=== PATIENT | male | born 1975 | race Caucasian/White ===

== ENCOUNTER 2016-10-16 07:34 | Observation (INO) | payer BC ==
[2016-10-16] MEDS ORDERED: Sodium Chloride 0.9% 1000 ML 1,000 ML IV STA (07:55)
[2016-10-16] MEDS ORDERED: NITRO-BID 2% UD PACKETS TOP ONE (07:55)
[2016-10-16] MEDS ORDERED: BABY ASPIRIN 81 MG CHEW PO ONE (07:55)
[2016-10-16] MEDS ORDERED: NITRO-BID 2% UD PACKETS ONE (08:00)
[2016-10-16] MEDS ORDERED: BABY ASPIRIN 81 MG CHEW ONE (08:00)
[2016-10-16] MEDS ORDERED: Sodium Chloride 0.9% 1000 ML 1,000 ML ONE (08:00)
[2016-10-16 08:06] LABS: Lactic Acid 3.5 (0.4-2.0)
[2016-10-16 08:08] LABS: VBG BASE EXCESS 0.2 (-2.0-2.0); VBG CARBOXYHEMOGLOBIN 4.2 % T HGB (0.0-6.9); VBG HCO3- 26.5 meq/L (22-28); VBG HEMOGLOBIN 15.3; VBG O2 SATURATION 85.3 (95-100); VBG POTASSIUM 4.3 (3.5-5.1); VBG pH 7.35 (7.32-7.42)
[2016-10-16 08:10] LABS: BASOPHIL % 0.5 % (0.0-0.4); Eosinophil % 2.6 % (0.00-5.0); Granulocytes % 67.3 % (36.0-66.0); Lymphocytes % 22.8 % (24.0-44.0); Mean Cell Volume 92.8 fl (78-100); Mean Corpuscular Hemoglobin 31.7 pg (26-32); Mean Platelet Volume 9.7 fl (6-9.5); Monocytes % 6.8 % (0.0-12.0); Platelet Count 225 K/mm3 (150-450); Red Blood Count 4.73 M/mm3 (4.1-5.6); Red Cell Distribution Width 13.1 % (11.5-14.0); White Blood Count 7.6 K/mm3 (4.0-10.5)
--- NOTE | 2016-10-16 08:11 | ERPHSYRPT ---
- History of Present Illness Time Seen by Provider: 10/16/16 07:44 Source: patient Patient Subjective Stated Complaint: PT STATES APPROX 0330 HE GOT UP TO CHECK HIS BLOOD SUGAR AND HAD PRESSURE TO THE LEFT UPPER CHEST. STATES HE COULD NOT GO BACK TO SLEEP DUE TO THE DISCOMFORT. Triage Nursing Assessment: PT IS AOX3, AMBULATORY TO COT WITH NO DIFFICULTIES, RESPS ARE EASY AND NONLABORED, RADIAL PULSE ARE STRONG AND EQUAL, HEART SOUNDS ARE NORMAL, NO EDEMA NOTED. SKIN IS PWD. Physician History: CC: chest pain Hx: 41 y/o patient of Dr Frias. He was driving to work this AM and noted left upper chest pain to the shoulder, pressure associated with shortness of breath. Started around 6AM today. He noted glc high 522 so took 15 units humalog SS. No hx of heart disease. He has DM and HTN. Fam hx of aortic dissection in father. ILL: DM, HTN, Anxiety, Depression ALL: Eggs Timing/Duration: today Severity: moderate Allergies/Adverse Reactions: egg Allergy (Verified 10/16/16 07:44) Home Medications: Lisinopril 20 mg [Zestril 20 MG] 30 mg PO HS 07/14/13 [History] Metformin HCl 850 mg [Glucophage 850 MG] 300 mg PO TID 03/21/14 [History] Venlafaxine HCl ER 75 mg [Effexor XR 75 MG] 150 mg PO HS 03/21/14 [History ] Amitriptyline HCl 25 mg [Elavil 25 mg] 150 mg PO QHS 05/31/14 [History] Hx Tetanus, Diphtheria Vaccination/Date Given: Yes Hx Influenza Vaccination/Date Given: No Hx Pneumococcal Vaccination/Date Given: No Immunizations Up to Date: Yes - Review of Systems Constitutional: No Fever, No Chills Eyes: No Symptoms Ears, Nose, & Throat: No Symptoms Respiratory: Dyspnea, No Cough Cardiac: Chest Pain, No Edema, No Palpitations, No Syncope Abdominal/Gastrointestinal: No Abdominal Pain, No Nausea, No Vomiting Genitourinary Symptoms: No Symptoms Musculoskeletal: No Back Pain, No Injury Skin: No Rash Neurological: No Focal Weakness, No Gait Changes, No Parasthesia All Other Systems: Reviewed and Negative - Past Medical History Pertinent Past Medical History: Yes Neurological History: Peripheral Neuropathy, Stroke ENT History: No Pertinent History Cardiac History: Hypertension Respiratory History: No Pertinent History Endocrine Medical History: Diabetes Type II Musculoskeletal History: Other GI Medical History: GERD History: No Pertinent History Psycho-Social History: Anxiety, Depression Male Reproductive Disorders: Other Other Medical History: bad back, 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, impotence - Past Surgical History Past Surgical History: No - Social History Smoking Status: Never smoker Exposure to second hand smoke: No Drug Use: none Patient Lives Alone: No - Nursing Vital Signs Nursing Vital Signs: Initial Vital Signs Temperature 98.3 F Temperature Source Oral Pulse Rate [Bilateral Radial] 122 Pulse Rate 102 Respiratory Rate 20 Blood Pressure [Right Arm] 116/76 Pain Intensity 2 - Physical Exam General Appearance: alert Eye Exam: PERRL/EOMI Ears, Nose, Throat Exam: normal ENT inspection, moist mucous membranes Neck Exam: normal inspection, non-tender, supple Respiratory Exam: normal breath sounds Cardiovascular Exam: regular rate/rhythm, murmur, No pulse deficit Gastrointestinal/Abdomen Exam: soft, No tenderness, No distention Back Exam: normal inspection Extremity Exam: normal inspection, normal range of motion Neurologic Exam: alert, oriented x 3, cooperative, precise winder II-XII nml as tested, sensation nml, No motor deficits Skin Exam: warm, dry, No rash SpO2 Interpretation: normal SpO2: 97 Oxygen Delivery: Room Air - Course Nursing assessment & vital signs reviewed: Yes EKG Interpreted by Me: RATE (118), Sinus Tach, NORMAL AXIS, NORMAL INTERVALS ( QTc 447), NORMAL QRS, NORMAL ST-T - Radiology Exams cxr X-ray Interpretation: Reviewed by me, Negative Ordered Tests: Active Orders 24 hr Category Date Time Status Cte Teacher STAT Care 10/16/16 07:55 Active Clean Catch Urine Specimen STAT Care 10/16/16 07:55 Active EKG-ER Only STAT Care 10/16/16 07:55 Active IV Insertion STAT Care 10/16/16 07:55 Active Pulse Oximetry (ED) STAT Care 10/16/16 07:55 Active CHEST 1 VIEW (PORTABLE) Stat Exams 10/16/16 07:55 Completed CBC W DIFF Stat Lab 10/16/16 08:04 Completed CMP Stat Lab 10/16/16 08:04 Completed Glucose,Critical Care Urgent Lab 10/16/16 07:56 Completed Lactic Acid Stat Lab 10/16/16 07:57 Results MAGNESIUM Stat Lab 10/16/16 08:11 Completed TROPONIN Q3H Lab 10/16/16 08:00 Completed TROPONIN Q3H Lab 10/16/16 11:00 Ordered TROPONIN Q3H Lab 10/16/16 14:00 Ordered TROPONIN Q3H Lab 10/16/16 17:00 Ordered TROPONIN Q3H Lab 10/16/16 20:00 Ordered UA W/RFX UR CULTURE Stat Lab 10/16/16 08:30 Completed Urine Triage Profile Stat Lab 10/16/16 07:55 Completed VENOUS BLOOD GAS Urgent Lab 10/16/16 07:56 Completed Medication Summary Discontinued Medications Generic Name Dose Route Start Last Admin Trade Name Freq PRN Reason Stop Dose Admin Aspirin 324 mg 10/16/16 07:55 10/16/16 08:04 Baby Aspirin 81 Mg Chew PO 10/16/16 07:56 324 mg STAT ONE Administration Aspirin Confirm 10/16/16 08:00 Baby Aspirin 81 Mg Chew Administered 10/16/16 08:01 Dose 324 mg .ROUTE .STK-MED ONE Sodium Chloride 1,000 mls @ 999 mls/hr 10/16/16 07:55 10/16/16 08:05 Sodium Chloride 0.9% 1000 Ml IV 10/16/16 08:55 999 mls/hr .Q1H1M STA Administration Sodium Chloride Confirm 10/16/16 08:00 Sodium Chloride 0.9% 1000 Ml Administered 10/16/16 08:01 Dose 1,000 mls @ ud .ROUTE .STK-MED ONE Insulin Human Isoph/Insulin Regular 50 unit 10/16/16 09:12 Novolin 70/30 SQ 10/16/16 09:13 STAT ONE Nitroglycerin 1 gm 10/16/16 07:55 10/16/16 08:05 Nitro-Bid 2% Ud Packets TOP 10/16/16 07:56 1 gm STAT ONE Administration Nitroglycerin Confirm 10/16/16 08:00 Nitro-Bid 2% Ud Packets Administered 10/16/16 08:01 Dose 1 gm .ROUTE .STK-MED ONE Lab/Rad Data: Laboratory Result Diagrams 10/16/16 08:04 10/16/16 08:04 Laboratory Results 10/16/16 10/16/16 10/16/16 Range/Units 08:30 08:11 08:04 WBC (4.0-10.5) K/mm3 RBC (4.1-5.6) M/mm3 Hgb (12.5-18.0) gm/dl Hct (42-50) % MCV (78-100) fl MCH (26-32) pg MCHC (32-36) g/dl RDW (11.5-14.0) % Plt Count (150-450) K/mm3 MPV (6-9.5) fl Gran % (36.0-66.0) % Lymphocytes % (24.0-44.0) % Monocytes % (0.0-12.0) % Eosinophils % (0.00-5.0) % Basophils % (0.0-0.4) % Basophils # (0-0.4) VBG pH (7.32-7.42) VBG pCO2 at Pat Temp (42-55) mm/Hg VBG pO2 at Pat Temp (25-40) mm/Hg VBG HCO3 (22-28) meq/L VBG O2 Sat (Steven) (95-100) VBG Base Excess (-2.0-2.0) VBG Hemoglobin VBG Carboxyhemoglobin (0.0-6.9) % T HGB POC Potassium (3.5-5.1) Glucose 480 H (70-110) Sodium 135 L (136-145) mEq/L Potassium 4.3 (3.5-5.1) mEq/L Chloride 99 (98-107) mEq/L Carbon Dioxide 25.3 (21-32) mEq/L Anion Gap 15.2 H (5-15) MEQ/L BUN 10 (9-20) mg/dL Creatinine 1.41 H (0.55-1.30) mg/dl Estimated GFR 59 ML/MIN Lactic Acid (0.4-2.0) Calcium 8.9 (8.5-10.1) mg/dL Magnesium 1.6 L (1.8-2.4) mg/dL Total Bilirubin 0.50 (0.2-1.0) mg/dL AST 16 (15-37) U/L ALT 31 (12-78) U/L Alkaline Phosphatase 104 (46-116) U/L Troponin I (0.000-0.056) ng/ml Serum Total Protein 7.3 (6.4-8.2) gm/dL Albumin 3.5 (3.4-5.0) g/dL Ur Collection Type VOID Urine Color YELLOW (YELLOW) Urine Appearance CLEAR (CLEAR) Urine pH 5.0 (5-6) Ur Specific Weinert 1.010 (1.005-1.025) Urine Protein NEGATIVE (Negative) Urine Ketones NEGATIVE (NEGATIVE) Urine Blood NEGATIVE (0-5) Edgar/ul Urine Nitrite NEGATIVE (NEGATIVE) Urine Bilirubin NEGATIVE (NEGATIVE) Urine Urobilinogen NORMAL (0-1) mg/dL Ur Leukocyte Esterase NEGATIVE (NEGATIVE) Urine Glucose 1000 (NEGATIVE) mg/dL Urine Opiates Level (NEGATIVE) Ur Methadone (NEGATIVE) Urine Barbiturates (NEGATIVE) Ur Phencyclidine (PCP) (NEGATIVE) Urine Amphetamine (NEGATIVE) U Benzodiazepine Level (NEGATIVE) Urine Cocaine (NEGATIVE) Urine Marijuana (THC) (NEGATIVE) Specimen Received 10/16/2016 0830 10/16/16 10/16/16 10/16/16 Range/Units 08:04 08:00 07:57 WBC 7.6 (4.0-10.5) K/mm3 RBC 4.73 (4.1-5.6) M/mm3 Hgb 15.0 (12.5-18.0) gm/dl Hct 43.9 (42-50) % MCV 92.8 (78-100) fl MCH 31.7 (26-32) pg MCHC 34.2 (32-36) g/dl RDW 13.1 (11.5-14.0) % Plt Count 225 (150-450) K/mm3 MPV 9.7 H (6-9.5) fl Gran % 67.3 H (36.0-66.0) % Lymphocytes % 22.8 L (24.0-44.0) % Monocytes % 6.8 (0.0-12.0) % Eosinophils % 2.6 (0.00-5.0) % Basophils % 0.5 (0.0-0.4) % Basophils # 0.04 (0-0.4) VBG pH (7.32-7.42) VBG pCO2 at Pat Temp (42-55) mm/Hg VBG pO2 at Pat Temp (25-40) mm/Hg VBG HCO3 (22-28) meq/L VBG O2 Sat (Steven) (95-100) VBG Base Excess (-2.0-2.0) VBG Hemoglobin VBG Carboxyhemoglobin (0.0-6.9) % T HGB POC Potassium (3.5-5.1) Glucose (70-110) Sodium (136-145) mEq/L Potassium (3.5-5.1) mEq/L Chloride (98-107) mEq/L Carbon Dioxide (21-32) mEq/L Anion Gap (5-15) MEQ/L BUN (9-20) mg/dL Creatinine (0.55-1.30) mg/dl Estimated GFR ML/MIN Lactic Acid 3.5 H (0.4-2.0) Calcium (8.5-10.1) mg/dL Magnesium (1.8-2.4) mg/dL Total Bilirubin (0.2-1.0) mg/dL AST (15-37) U/L ALT (12-78) U/L Alkaline Phosphatase (46-116) U/L Troponin I < 0.017 (0.000-0.056) ng/ml Serum Total Protein (6.4-8.2) gm/dL Albumin (3.4-5.0) g/dL Ur Collection Type Urine Color (YELLOW) Urine Appearance (CLEAR) Urine pH (5-6) Ur Specific Weinert (1.005-1.025) Urine Protein (Negative) Urine Ketones (NEGATIVE) Urine Blood (0-5) Edgar/ul Urine Nitrite (NEGATIVE) Urine Bilirubin (NEGATIVE) Urine Urobilinogen (0-1) mg/dL Ur Leukocyte Esterase (NEGATIVE) Urine Glucose (NEGATIVE) mg/dL Urine Opiates Level (NEGATIVE) Ur Methadone (NEGATIVE) Urine Barbiturates (NEGATIVE) Ur Phencyclidine (PCP) (NEGATIVE) Urine Amphetamine (NEGATIVE) U Benzodiazepine Level (NEGATIVE) Urine Cocaine (NEGATIVE) Urine Marijuana (THC) (NEGATIVE) Specimen Received 10/16/16 10/16/16 Range/Units 07:56 07:55 WBC (4.0-10.5) K/mm3 RBC (4.1-5.6) M/mm3 Hgb (12.5-18.0) gm/dl Hct (42-50) % MCV (78-100) fl MCH (26-32) pg MCHC (32-36) g/dl RDW (11.5-14.0) % Plt Count (150-450) K/mm3 MPV (6-9.5) fl Gran % (36.0-66.0) % Lymphocytes % (24.0-44.0) % Monocytes % (0.0-12.0) % Eosinophils % (0.00-5.0) % Basophils % (0.0-0.4) % Basophils # (0-0.4) VBG pH 7.35 (7.32-7.42) VBG pCO2 at Pat Temp 48 (42-55) mm/Hg VBG pO2 at Pat Temp 47 H (25-40) mm/Hg VBG HCO3 26.5 (22-28) meq/L VBG O2 Sat (Steven) 85.3 L (95-100) VBG Base Excess 0.2 (-2.0-2.0) VBG Hemoglobin 15.3 VBG Carboxyhemoglobin 4.2 (0.0-6.9) % T HGB POC Potassium 4.3 (3.5-5.1) Glucose 505 H* (70-110) Sodium (136-145) mEq/L Potassium (3.5-5.1) mEq/L Chloride (98-107) mEq/L Carbon Dioxide (21-32) mEq/L Anion Gap (5-15) MEQ/L BUN (9-20) mg/dL Creatinine (0.55-1.30) mg/dl Estimated GFR ML/MIN Lactic Acid (0.4-2.0) Calcium (8.5-10.1) mg/dL Magnesium (1.8-2.4) mg/dL Total Bilirubin (0.2-1.0) mg/dL AST (15-37) U/L ALT (12-78) U/L Alkaline Phosphatase (46-116) U/L Troponin I (0.000-0.056) ng/ml Serum Total Protein (6.4-8.2) gm/dL Albumin (3.4-5.0) g/dL Ur Collection Type Urine Color (YELLOW) Urine Appearance (CLEAR) Urine pH (5-6) Ur Specific Weinert (1.005-1.025) Urine Protein (Negative) Urine Ketones (NEGATIVE) Urine Blood (0-5) Edgar/ul Urine Nitrite (NEGATIVE) Urine Bilirubin (NEGATIVE) Urine Urobilinogen (0-1) mg/dL Ur Leukocyte Esterase (NEGATIVE) Urine Glucose (NEGATIVE) mg/dL Urine Opiates Level NEG. (NEGATIVE) Ur Methadone NEG. (NEGATIVE) Urine Barbiturates NEG. (NEGATIVE) Ur Phencyclidine (PCP) NEG. (NEGATIVE) Urine Amphetamine NEG. (NEGATIVE) U Benzodiazepine Level NEG. (NEGATIVE) Urine Cocaine NEG. (NEGATIVE) Urine Marijuana (THC) NEG. (NEGATIVE) Specimen Received - Progress Progress Note: 10/16/16 09:16 Pain almost gone with NTG paste. ASA given. Glc high. He usually takes humulin 70/30 50 units BID but has not taken yet today. Called Dr Frias and will place in obs for serial troponin and glucose management. Discussed with : Altagracia Will see patient in: hospital (observation) Counseled pt/family regarding: lab results, diagnosis, need for follow-up, rad results - Departure Time of Disposition: 09:18 Departure Disposition: Observation (Tele) Clinical Impression: Chest pain, rule out acute myocardial infarction, Hyperglycemia due to type 1 diabetes mellitus Condition: Fair Critical Care Time: No Referrals: ARY FRIAS [Primary Care Provider] -
--- NOTE | 2016-10-16 08:33 | XRAY ---
Indication: Left-sided chest pain. Comparison: May 31, 2014. Portable chest unchanged again underinflated with calcified granulomas. Remaining heart, lungs, and bony thorax normal.
[2016-10-16 08:35] LABS: ALBUMIN 3.5 g/dL (3.4-5.0); ANION GAP 15.2 MEQ/L (5-15); BILIRUBIN,TOTAL 0.5 mg/dL (0.2-1.0); Carbon Dioxide 25.3 mEq/L (21-32); Potassium 4.3 mEq/L (3.5-5.1); Total Protein 7.3 gm/dL (6.4-8.2)
[2016-10-16 08:53] LABS: ADD URINE CULTURE? NO (NO); Bilirubin NEGATIVE (NEGATIVE); Blood NEGATIVE Ery/ul (0-5); COMPLETE URINE MICROSCOPIC? NO; Collection Type VOID; Glucose 1000 mg/dL (NEGATIVE); Leukocyte Esterase NEGATIVE (NEGATIVE)
[2016-10-16] MEDS ORDERED: Novolin 70/30 SQ ONE (09:12)
[2016-10-16] MEDS ORDERED: Sodium Chloride 0.9% 500 ML 500 ML IV SCH (10:43)
[2016-10-16] MEDS ORDERED: Zofran 4 MG/2 ML VIAL IV PRN (10:43)
[2016-10-16] MEDS ORDERED: MAALOX ES 30 ML UNIT DOSE PO PRN (10:43)
[2016-10-16] MEDS ORDERED: MILK OF MAGNESIA 30 ML PO PRN (10:43)
[2016-10-16] MEDS ORDERED: Senokot-S Tablet PO PRN (10:43)
[2016-10-16] MEDS: Pepcid 20 MG PO SCH ×2 (11:34→22:06)
[2016-10-16] MEDS: NovoLOG Insulin SQ PRN ×2 (12:01→16:50)
[2016-10-16] MEDS: TYLENOL 325 MG PO PRN (13:53)
[2016-10-16] MEDS: NITRO-BID 2% UD PACKETS TOP SCH ×2 (13:54→22:09)
[2016-10-16] MEDS ORDERED: MEDICATION INTERVENTION MC PRN (14:44)
--- NOTE | 2016-10-16 17:29 | PCM.HP ---
History of Present Illness - Chief Complaint Chief Complaint: CHEST PAIN, HYPERGLYCENIA History of Present Illness: is a 41 year old male pt of mine from [facility], diabetic on insulin, who woke up at 3 am not feeling well. His BS was in the 400s so he took some fast acting insulin. He got up again at 6 am to go to work and his BS was over 500. He was having some chest pressure so decided to go to the ER. His troponins have been negative x 3. He denies CP now. Some ARANDA from the nitro. His HR has been elevated lately; was 126 at a recent. physical. - Review of Systems Constitutional: Weight Loss (purposeful) Cardiac: Chest Pain All Other Systems: Reviewed and Negative Medications & Allergies Home Medications: Home Medication List Lisinopril 20 mg [Zestril 20 MG] 30 mg PO HS 07/14/13 [History Confirmed 10/16/16] Metformin HCl 850 mg [Glucophage 850 MG] 850 mg PO TID 03/21/14 [History Confirmed 10/16/16] Venlafaxine HCl ER 75 mg [Effexor XR 75 MG] 150 mg PO HS 03/21/14 [ History Confirmed 10/16/16] Amitriptyline HCl 25 mg [Elavil 25 mg] 150 mg PO QHS 05/31/14 [History Confirmed 10/16/16] Insulin Lispro [Humalog] 100 unit SQ ACHS PRN 10/16/16 [History Confirmed ] Insuln Asp Prt/Insulin Aspart* [NovoLOG 70/30 Mix] 50 unit SQ BID 10/16/16 [ History Confirmed 10/16/16] Testosterone [Androgel] 1.25 gm TD DAILY 10/16/16 [History Confirmed 10/16/16] Allergies/Adverse Reactions: Allergies Allergy/AdvReac Type Severity Reaction Status Date / Time egg Allergy Verified 10/16/16 07:44 - Past Medical History Past Medical History: Yes Neurological History: Peripheral Neuropathy, Stroke ENT History: No Pertinent History Cardiac History: Hypertension Respiratory History: No Pertinent History Endocrine Medical History: Diabetes Type II Musculoskelatal History: Other GI Medical History: GERD History: No Pertinent History Pyscho-Social History: Anxiety, Depression Male Reproductive Disorders: Other Comment: bad back, CVA 2003.2004, impotence - Past Surgical History Past Surgical History: No Neuro Surgical History: No Pertinent History Cardiac History: No Pertinent History Respiratory Surgery: No Pertinent History GI Surgical History: No Pertinent History Genitourinary Surgical Hx: No Pertinent History Musculskeletal Surgical Hx: No Pertinent History Male Surgical History: No Pertinent History - Social History Smoking Status: Never smoker Exposure to second hand smoke: Yes Alcohol: None Drug Use: none - Physical Exam Vital Signs: Vital Signs - 24 hr Temp Pulse Pulse Resp BP Pulse Ox 10/16/16 16:19 98 F 95 H 20 118/74 98 10/16/16 13:38 20 114/66 10/16/16 12:05 98.3 F 99 H 16 104/60 93 L 10/16/16 10:43 96 10/16/16 10:17 98.5 F 99 H 20 117/74 96 10/16/16 10:08 104 H 18 127/74 95 10/16/16 09:23 114 H 20 118/72 95 10/16/16 09:19 97 10/16/16 08:39 102 H 20 116/76 98 10/16/16 08:10 108 H 18 142/87 96 10/16/16 07:57 97 10/16/16 07:35 122 H 10/16/16 07:34 98.3 F 122 H 20 137/72 97 General Appearance: no apparent distress, obese Neurologic Exam: alert, oriented x 3, cooperative Eye Exam: eyes nml inspection Neck Exam: normal inspection Respiratory Exam: normal breath sounds, lungs clear, No crackles/rales, No rhonchi, No wheezing Cardiovascular Exam: regular rate/rhythm, normal heart sounds, No murmur Back Exam: normal inspection Extremity Exam: normal inspection, No pedal edema, No swelling Skin Exam: normal color, warm, dry Results - Labs Lab/Micro Results: Accuchecks Date 10/16/16 Date 10/16/16 Time 16:00 Time 11:30 Accucheck Value: 175 Accucheck Value: 369 Lab Results-Last 24 Hours 10/16/16 10/16/16 Range/Units 11:00 13:51 Troponin I < 0.017 < 0.017 (0.000-0.056) ng/ml Accuchecks Date 10/16/16 Date 10/16/16 Time 16:00 Time 11:30 Accucheck Value: 175 Accucheck Value: 369 - Other Procedures and Tests Respiratory Therapy 10/17/16 05:00 EKG ONCE 10/18/16 05:00 EKG ONCE 10/19/16 05:00 EKG ONCE Assessment/Plan (1) Chest pain, rule out acute myocardial infarction Current Visit: Yes Status: Acute Assessment & Plan: Troponins negative x 3. Await 2 more troponins. No chest pain currently. Code(s): R07.9 - CHEST PAIN, UNSPECIFIED (2) Diabetes mellitus type I Current Visit: Yes Status: Acute Qualifiers: Diabetes mellitus complication status: with other specified complication Qualified Code(s): E10.69 - Type 1 diabetes mellitus with other specified complication Assessment & Plan: Resume home insulin with moderate dose sliding scale. (3) Elevated lactic acid level Current Visit: Yes Status: Acute Assessment & Plan: likely due to elevated blood sugar; recheck Code(s): R79.89 - OTHER SPECIFIED ABNORMAL FINDINGS OF BLOOD CHEMISTRY (4) Hyperglycemia due to type 1 diabetes mellitus Current Visit: Yes Status: Acute Assessment & Plan: Much improved, BS to 175 now. Code(s): E10.65 - TYPE 1 DIABETES MELLITUS WITH HYPERGLYCEMIA (5) Tachycardia Current Visit: Yes Status: Acute Assessment & Plan: Will add beta jimmie Code(s): R00.0 - TACHYCARDIA, UNSPECIFIED
[2016-10-16 18:27] LABS: ANION GAP 10.1 MEQ/L (5-15); BLOOD UREA NITROGEN 12 mg/dL (9-20); CHLORIDE 103 mEq/L (98-107); Carbon Dioxide 29.9 mEq/L (21-32); Glucose 160 MG/DL (70-110); SODIUM 139 mEq/L (136-145)
[2016-10-16 18:30] LABS: TROPONIN < 0.017 ng/ml (0.000-0.056)
[2016-10-16] MEDS: NovoLOG 70/30 Mix SQ SCH (19:19)
[2016-10-16] MEDS: Toprol-Xl 25MG Tablets PO SCH (19:19)
[2016-10-16] MEDS ORDERED: Zestril 20 MG PO SCH (22:00)
[2016-10-16] MEDS ORDERED: Effexor XR 75 MG PO SCH (22:00)
[2016-10-16] MEDS ORDERED: Zestril 10 MG PO SCH (22:00)
[2016-10-17] MEDS: TYLENOL 325 MG PO PRN (05:48)
[2016-10-17] MEDS: NITRO-BID 2% UD PACKETS TOP SCH (05:54)
[2016-10-17 06:17] LABS: ANION GAP 11.5 MEQ/L (5-15); BLOOD UREA NITROGEN 15 mg/dL (9-20); CHLORIDE 105 mEq/L (98-107); Carbon Dioxide 28.7 mEq/L (21-32); Glucose 155 MG/DL (70-110); Potassium 4.3 mEq/L (3.5-5.1); SODIUM 141 mEq/L (136-145)
[2016-10-17] MEDS: NovoLOG 70/30 Mix SQ SCH (07:48)
[2016-10-17] MEDS ORDERED: Ecotrin 325 MG PO SCH (10:00)
[2016-10-17] MEDS ORDERED: TESTOSTERONE 1.25 GM TD SCH (10:00)
[2016-10-17] MEDS: Toprol-Xl 25MG Tablets PO SCH (10:02)
[2016-10-17] MEDS: Pepcid 20 MG PO SCH (10:02)
--- NOTE | 2016-10-17 11:19 | PCM.DS ---
Discharge Summary Date of Admission: 10/16/16 10:10 Admitting Physician: ARY JADE Primary Care Provider: ARY JADE Allergies Allergies egg Allergy (Verified 10/16/16 07:44) Hospital Summary - Hospital Course Hospital Course: Pt admitted with chest pain to rule out MD; BS also over 500 (known diabetic). His blood sugars dropped into the 100s on his home insulin (with moderate dose sliding scale). His chest pain resolved after admission; troponins neg x 5. His HR was noted to be around and just over 100; at a recent physical it was 126 bpm. Toprol XL 25mg was started with good results, HR in the 80s and BP 110s - will send home on decreased dose of lisinopril (20mg/d instead of 30mg/d) . - Vitals & Intake/Output Vital Signs: Vital Signs Temperature 98.2 F 10/17/16 07:23 Pulse Rate 86 10/17/16 07:23 Respiratory Rate 18 10/17/16 07:23 Blood Pressure 112/65 10/17/16 07:23 O2 Sat by Pulse Oximetry 95 10/17/16 07:23 Intake & Output: Intake & Output 10/14/16 10/15/16 10/16/16 10/17/16 11:59 11:59 11:59 11:59 Intake Total 2196 Balance 2196 Weight 104.372 kg 104.372 kg - Lab Result Diagrams: 10/16/16 08:04 10/17/16 05:54 Lab Results-Last 24 Hrs: Accuchecks Date 10/17/16 Date 10/16/16 Date 10/16/16 Date 10/16/16 Date 10/16/16 Time 07:35 Time 21:00 Time 17:30 Time 16:00 Time 11:30 Accucheck Value: 155 Accucheck Value: 142 Accucheck Value: 175 Accucheck Value: 175 Accucheck Value: 369 Lab Results-Last 24 Hours 10/16/16 10/16/16 10/16/16 Range/Units 11:00 13:51 17:19 Sodium (136-145) mEq/L Potassium (3.5-5.1) mEq/L Chloride (98-107) mEq/L Carbon Dioxide (21-32) mEq/L Anion Gap (5-15) MEQ/L BUN (9-20) mg/dL Creatinine (0.55-1.30) mg/dl Estimated GFR ML/MIN Glucose (70-110) MG/DL Lactic Acid 1.7 (0.4-2.0) Calcium (8.5-10.1) mg/dL Troponin I < 0.017 < 0.017 (0.000-0.056) ng/ml Triglycerides (30-200) mg/dL Cholesterol (100-200) mg/dL LDL Cholesterol (5-99) mg/dL HDL Cholesterol (35-60) mg/dL Heart Disease Risk Ratio 10/16/16 10/16/16 10/17/16 Range/Units 17:59 20:18 05:54 Sodium 139 (136-145) mEq/L Potassium 4.0 (3.5-5.1) mEq/L Chloride 103 (98-107) mEq/L Carbon Dioxide 29.9 (21-32) mEq/L Anion Gap 10.1 (5-15) MEQ/L BUN 12 (9-20) mg/dL Creatinine 1.39 H (0.55-1.30) mg/dl Estimated GFR > 60 ML/MIN Glucose 160 H (70-110) MG/DL Lactic Acid (0.4-2.0) Calcium 8.8 (8.5-10.1) mg/dL Troponin I < 0.017 < 0.017 (0.000-0.056) ng/ml Triglycerides 131 (30-200) mg/dL Cholesterol 146 (100-200) mg/dL LDL Cholesterol 94 (5-99) mg/dL HDL Cholesterol 30 L (35-60) mg/dL Heart Disease Risk Ratio 4.9 10/17/16 Range/Units 05:54 Sodium 141 (136-145) mEq/L Potassium 4.3 (3.5-5.1) mEq/L Chloride 105 (98-107) mEq/L Carbon Dioxide 28.7 (21-32) mEq/L Anion Gap 11.5 (5-15) MEQ/L BUN 15 (9-20) mg/dL Creatinine 1.34 H (0.55-1.30) mg/dl Estimated GFR > 60 ML/MIN Glucose 155 H (70-110) MG/DL Lactic Acid (0.4-2.0) Calcium 8.9 (8.5-10.1) mg/dL Troponin I (0.000-0.056) ng/ml Triglycerides (30-200) mg/dL Cholesterol (100-200) mg/dL LDL Cholesterol (5-99) mg/dL HDL Cholesterol (35-60) mg/dL Heart Disease Risk Ratio Micro Results-Entire Visit: Accuchecks Date 10/17/16 Date 10/16/16 Date 10/16/16 Date 10/16/16 Date 10/16/16 Time 07:35 Time 21:00 Time 17:30 Time 16:00 Time 11:30 Accucheck Value: 155 Accucheck Value: 142 Accucheck Value: 175 Accucheck Value: 175 Accucheck Value: 369 - Procedures and Test Procedures and Tests throughout Hospitalization: Therapy Orders & Screens 10/16/16 15:30 EKG ONCE Comment: Diagnosis: CHEST PAIN, HYPERGLYCENIA 10/17/16 05:00 EKG ONCE Comment: Diagnosis: CHEST PAIN, HYPERGLYCENIA 10/18/16 05:00 EKG ONCE Comment: Diagnosis: CHEST PAIN, HYPERGLYCENIA 10/19/16 05:00 EKG ONCE Comment: Diagnosis: CHEST PAIN, HYPERGLYCENIA Discharge Exam General Appearance: no apparent distress Neurologic Exam: alert, oriented x 3, cooperative Skin Exam: normal color, warm, dry Eye Exam: eyes nml inspection Respiratory Exam: normal breath sounds, lungs clear, No crackles/rales, No rhonchi, No wheezing Cardiovascular Exam: regular rate/rhythm, normal heart sounds, No murmur Extremity Exam: No pedal edema, No swelling Final Diagnosis/Problem List - Final Discharge Diagnosis/Problem (1) Chest pain, rule out acute myocardial infarction Current Visit: Yes Status: Acute Assessment & Plan: MD ruled out, ok to d/c home. Would like pt to have outpatient stress test if not done in the past 12 months. (2) Diabetes mellitus type I Current Visit: Yes Status: Chronic Assessment & Plan: Doing well on home insulin dose. (3) Elevated lactic acid level Current Visit: Yes Status: Resolved (4) Hyperglycemia due to type 1 diabetes mellitus Current Visit: Yes Status: Resolved (5) Tachycardia Current Visit: Yes Status: Resolved Assessment & Plan: Home on toprol XL 25mg/d. - Discharge Disposition: Home, Self-Care Condition: Stable Prescriptions: New Metoprolol Succinate [Toprol Xl] 25 mg PO DAILY #30 tab.er.24h Lisinopril 20 mg [Zestril 20 MG] 20 mg PO HS #30 tablet Continue Venlafaxine HCl ER 75 mg [Effexor XR 75 MG] 150 mg PO HS Metformin HCl 850 mg [Glucophage 850 MG] 850 mg PO TID Amitriptyline HCl 25 mg [Elavil 25 mg] 150 mg PO QHS Testosterone [Androgel] 1.25 gm TD DAILY Insuln Asp Prt/Insulin Aspart* [NovoLOG 70/30 Mix] 50 unit SQ BID Insulin Lispro [Humalog] 100 unit SQ ACHS PRN PRN Reason: blood sugar Discontinued Lisinopril 20 mg [Zestril 20 MG] 30 mg PO HS Follow up with: ARY JADE [Primary Care Provider] -
[2016-10-17 11:38] VITALS: BP 114/69; PULSE 95; O2SAT 92
== END 2016-10-17 12:40 | disposition home or self-care (01) ==
LOC: ED 07:34 → MED SURG 10:10
PROVIDERS: ADMIT Family Medicine; ATTEND Family Medicine
DX: R07.9 Chest pain, unspecified (principal); R79.89 Other specified abnormal findings of blood chemistry; E10.65 Type 1 diabetes mellitus with hyperglycemia; Z79.4 Long term (current) use of insulin; R00.0 Tachycardia, unspecified; I10 Essential (primary) hypertension; F41.8 Other specified anxiety disorders; K21.9 Gastro-esophageal reflux disease without esophagitis; G62.9 Polyneuropathy, unspecified; Z86.73 Personal history of transient ischemic attack (TIA), and cerebral infarction without residual deficits
CPT/HCPCS: 36000; 36415; 71010; 80048; 80053; 80061; 80307; 81002; 82805; 82947; 82962; 83605; 83721; 83735; 84484; 85025; 93005; 93041; 93268; 96360; 99285; G0378; J1815; A9270-GY

== ENCOUNTER 2016-11-21 04:06 | Emergency (ER) | payer BC ==
[2016-11-21] MEDS ORDERED: Marcaine 0.5%/Epinephrine 10 ML IJ ONE (04:14)
[2016-11-21 04:15] VITALS: O2SAT 98
[2016-11-21] MEDS ORDERED: Marcaine 0.5% SDV 10 ML ONE (04:18)
[2016-11-21] MEDS ORDERED: XYLOCAINE HCl Viscous ONE (04:18)
[2016-11-21] MEDS ORDERED: Marcaine 0.5%/Epinephrine 10 ML ONE (04:21)
--- NOTE | 2016-11-21 04:23 | ERPHSYRPT ---
- History of Present Illness Time Seen by Provider: 11/21/16 04:14 Source: patient, family Exam Limitations: no limitations Patient Subjective Stated Complaint: TOOTHACHE Triage Nursing Assessment: PT ALERT AND ORIENTEDX3, ABLE TO ABLUET BY SELF GAIT IS STEADY, SWELLING NOTED TO LEFT SIDE OF FACE CRACKED TOOTH CAN BE SEEN ON LEFT SIDE OF MOUTH, LUNG SOUNDS CLEAR, PULSES EQUAL BIALTERAL RADIUS. Physician History: toothache off and on since October 20; tooth broke; multiple caries; no fever; no trauma; no difficulty swallowing; no other complaints; Timing/Duration: gradual onset, intermittent, this evening (worse) Severity: severe ENT Location: dental (left lower 2nd molar) Prearrival Treatment: over the counter meds, prescription meds Associated Symptoms: ear pain (L), jaw pain (left), tooth pain (left lower molar ) Allergies/Adverse Reactions: egg Allergy (Verified 10/16/16 07:44) Home Medications: Metformin HCl 850 mg [Glucophage 850 MG] 850 mg PO TID 03/21/14 [History] Venlafaxine HCl ER 75 mg [Effexor XR 75 MG] 150 mg PO HS 03/21/14 [History ] Amitriptyline HCl 25 mg [Elavil 25 mg] 150 mg PO QHS 05/31/14 [History] Insulin Lispro [Humalog] 100 unit SQ ACHS PRN 10/16/16 [History] Insuln Asp Prt/Insulin Aspart* [NovoLOG 70/30 Mix] 50 unit SQ BID 10/16/16 [ History] Testosterone [Androgel] 1.25 gm TD DAILY 10/16/16 [History] Hx Tetanus, Diphtheria Vaccination/Date Given: Yes Hx Influenza Vaccination/Date Given: No Hx Pneumococcal Vaccination/Date Given: No - Review of Systems Constitutional: No Symptoms Eyes: No Symptoms Ears, Nose, & Throat: Ear Pain (left), Other (dental pain left lower 2nd molar) , No Tinnitus, No Epistaxis Respiratory: No Cough, No Dyspnea, No Wheezing Cardiac: No Chest Pain, No Palpitations, No Syncope Abdominal/Gastrointestinal: No Abdominal Pain, No Nausea, No Vomiting, No Diarrhea Genitourinary Symptoms: No Symptoms Musculoskeletal: No Symptoms Skin: No Symptoms Neurological: No Symptoms Psychological: No Symptoms Endocrine: No Symptoms Hematologic/Lymphatic: No Symptoms Immunological/Allergic: No Symptoms - Past Medical History Pertinent Past Medical History: Yes Neurological History: Peripheral Neuropathy, Stroke ENT History: No Pertinent History Cardiac History: Hypertension Respiratory History: No Pertinent History Endocrine Medical History: Diabetes Type II Musculoskeletal History: Other GI Medical History: GERD History: No Pertinent History Psycho-Social History: Anxiety, Depression Male Reproductive Disorders: Other Other Medical History: bad back, 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, impotence - Past Surgical History Past Surgical History: No Neuro Surgical History: No Pertinent History Cardiac: No Pertinent History Respiratory: No Pertinent History Gastrointestinal: No Pertinent History Genitourinary: No Pertinent History Musculoskeletal: No Pertinent History Male Surgical History: No Pertinent History - Social History Smoking Status: Never smoker Exposure to second hand smoke: Yes Alcohol Use: None Drug Use: none Patient Lives Alone: No Significant Family History: diabetes, hypertension - Nursing Vital Signs Nursing Vital Signs: Initial Vital Signs Temperature 97.8 F 11/21/16 04:07 Pulse Rate 98 H 11/21/16 04:07 Respiratory Rate 18 11/21/16 04:07 Blood Pressure 111/61 11/21/16 04:07 O2 Sat by Pulse Oximetry 98 11/21/16 04:07 Pain Scale Pain Intensity 10 - Physical Exam General Appearance: moderate distress, alert, obese Eye Exam: bilateral eye: normal inspection, PERRL, EOMI Ear Exam: bilateral ear: auricle normal, canal normal, TM normal Nasal Exam: normal inspection, No dried blood, No foreign body, No sinus tenderness Throat Exam: normal, pharynx normal, dental tenderness (left lower 2nd molar; multiple caries; molar missing significant part; tender; ), moist mucus membranes, No excessive drooling, No foreign body, No mandibular swelling, No maxillary swelling, No pharynx swelling, No trismus Neck Exam: normal inspection, non-tender, supple, full range of motion, trachea midline, No lymphadenopathy (R), No lymphadenopathy (L) Cardiovascular/Respiratory Exam: chest non-tender, normal breath sounds, regular rate/rhythm, heart sounds normal, no JVD, no M/R/G, no respiratory distress Abdominal Exam: non-tender, soft, no organomegaly Neurologic Exam: alert, oriented x 3, cooperative, gum machine filler II-XII nml as tested, normal mood/affect, nml cerebellar function, nml station & gait, sensation nml Skin Exam: normal color, warm, dry, No rash SpO2 Interpretation: normal SpO2: 98 Oxygen Delivery: Room Air Procedures - Additional Procedures Progress: Dental block performed with bipuvicaine 0.5 %; patient tolerated well; good relief - Course Nursing assessment & vital signs reviewed: Yes Ordered Tests: Active Orders 24 hr Category Date Time Status Re-Check Vital Signs STAT Care 11/21/16 04:14 Active Medication Summary Discontinued Medications Generic Name Dose Route Start Last Admin Trade Name Anuj PRN Reason Stop Dose Admin Bupivacaine HCl Confirm 11/21/16 04:18 Marcaine 0.5% Sdv 10 Ml Administered 11/21/16 04:19 Dose 10 ml .ROUTE .STK-MED ONE Bupivacaine HCl/Epinephrine Bitart 5 ml 11/21/16 04:14 11/21/16 04:27 Marcaine 0.5%/Epinephrine 10 Ml IJ 11/21/16 04:15 5 ml STAT ONE Administration Bupivacaine HCl/Epinephrine Bitart Confirm 11/21/16 04:21 Marcaine 0.5%/Epinephrine 10 Ml Administered 11/21/16 04:22 Dose 10 ml .ROUTE .STK-MED ONE Lidocaine HCl Confirm 11/21/16 04:18 Xylocaine Hcl Viscous * Administered 11/21/16 04:19 Dose 20 ml .ROUTE .STK-MED ONE Lidocaine HCl 20 ml 11/21/16 04:27 Xylocaine Viscous 2% 20 Ml Cup PO 11/21/16 04:28 STAT ONE - Progress Progress: improved (after dental block), re-examined (after dental block) Progress Note: 11/21/16 04:24 discussed treatment plan; applied topical viscous xylocaine to gum; will let work then do dental block with bipuvicaine and recheck; at bedside 11/21/16 04:35 good releif with dental block; instructions given Counseled pt/family regarding: diagnosis, need for follow-up - Departure Time of Disposition: 04:45 Departure Disposition: Home Clinical Impression: Diabetes mellitus type I, Dental caries Condition: Stable Critical Care Time: No Referrals: ARY JADE [Primary Care Provider] - Instructions: Tooth Decay Additional Instructions: follow up DDS recheck; soft diet; gargle with H2O2 saline; Follow-up with family doctor as directed. Call for appointment. Return if any problems. If you smoke please stop. Call or follow up with your family doctor for assistance if you need it to stop. Please wear your seatbelt when driving. Have a nice day. Thank you for allowing us to participate in your care today. :o) Dr Jonny Herrera Prescriptions: Hydrocodone/Ibuprofen [Vicoprofen 200-7.5 mg Tab] 1 each PO Q4-6HPRN PRN #10 tablet PRN Reason: Pain
[2016-11-21] MEDS ORDERED: XYLOCAINE VISCOUS 2% 20 ML CUP PO ONE (04:27)
[2016-11-21 04:36] VITALS: BP 113/72; PULSE 100
== END 2016-11-21 04:57 | disposition home or self-care (01) ==
LOC: ED 04:06
DX: E10.8 Type 1 diabetes mellitus with unspecified complications (principal); K02.9 Dental caries, unspecified
CPT/HCPCS: 96372; 99283; A9270-GY

== ENCOUNTER 2016-11-22 11:57 | Emergency (ER) | payer BC ==
[2016-11-22 12:11] VITALS: BP 146/89; PULSE 109; O2SAT 95
[2016-11-22] MEDS ORDERED: Hydromorphone 1 mg/ml Ampule IV ONE (12:20)
[2016-11-22] MEDS ORDERED: Sodium Chloride 0.9% 1000 ML 1,000 ML IV STA (12:20)
[2016-11-22] MEDS ORDERED: CLEOCIN 150 MG CAPSULE PO ONE (12:21)
--- NOTE | 2016-11-22 12:28 | ERPHSYRPT ---
- History of Present Illness Time Seen by Provider: 11/22/16 12:07 Source: patient, family Patient Subjective Stated Complaint: tooth abscess since october 23. Triage Nursing Assessment: ambulated to room per self holding left side of face. moderate swelling noted to face. Physician History: CC: left facial swelling Hx: 41 y/o patient of Dr Frias with hx of insulin dependent DM. He has had toothache since around October 20. He was treated with keflex, now on amoxil. Has dental appt Wednesday (in 2 days) with [facility]. He has been on viocodin and vicoprofen for pain. He was in ER yesterday and had dental block with some short relief. No fever or chills. The pain and swelling in left face was worse today. He has ran out of vicoprofen from ER yesterday. He has not checked sugar but has been taking his insulin and DM medication. He has not felt much like eating. Timing/Duration: gradual onset (around October 20) Allergies/Adverse Reactions: egg Allergy (Verified 11/22/16 12:06) Home Medications: Metformin HCl 850 mg [Glucophage 850 MG] 850 mg PO TID 03/21/14 [History] Venlafaxine HCl ER 75 mg [Effexor XR 75 MG] 150 mg PO HS 03/21/14 [History ] Amitriptyline HCl 25 mg [Elavil 25 mg] 150 mg PO QHS 05/31/14 [History] Insulin Lispro [Humalog] 100 unit SQ ACHS PRN 10/16/16 [History] Insuln Asp Prt/Insulin Aspart* [NovoLOG 70/30 Mix] 50 unit SQ BID 10/16/16 [ History] Testosterone [Androgel] 1.25 gm TD DAILY 10/16/16 [History] Hx Tetanus, Diphtheria Vaccination/Date Given: Yes Hx Influenza Vaccination/Date Given: No Hx Pneumococcal Vaccination/Date Given: No - Review of Systems Constitutional: Malaise, No Fever, No Chills Eyes: No Double Vision Ears, Nose, & Throat: Mouth Pain (with some broken teeth), Mouth Swelling (left facial) Respiratory: No Dyspnea Cardiac: No Chest Pain Abdominal/Gastrointestinal: No Abdominal Pain, No Nausea, No Vomiting Skin: No Rash Neurological: No Headache All Other Systems: Reviewed and Negative - Past Medical History Pertinent Past Medical History: Yes Neurological History: Peripheral Neuropathy, Stroke ENT History: No Pertinent History Cardiac History: Hypertension Respiratory History: No Pertinent History Endocrine Medical History: Diabetes Type II Musculoskeletal History: Other GI Medical History: GERD History: No Pertinent History Psycho-Social History: Anxiety, Depression Male Reproductive Disorders: Other Other Medical History: bad back, CVA 2003.2003, impotence - Past Surgical History Past Surgical History: No Neuro Surgical History: No Pertinent History Cardiac: No Pertinent History Respiratory: No Pertinent History Gastrointestinal: No Pertinent History Genitourinary: No Pertinent History Musculoskeletal: No Pertinent History Male Surgical History: No Pertinent History - Social History Smoking Status: Never smoker Exposure to second hand smoke: Yes Alcohol Use: None Drug Use: none Patient Lives Alone: No Significant Family History: diabetes, hypertension - Nursing Vital Signs Nursing Vital Signs: Initial Vital Signs Temperature 98.8 F 11/22/16 12:00 Pulse Rate 109 H 11/22/16 12:00 Respiratory Rate 16 11/22/16 12:00 Blood Pressure 146/89 11/22/16 12:00 O2 Sat by Pulse Oximetry 95 11/22/16 12:00 Pain Scale Pain Intensity 6 - Physical Exam General Appearance: alert Eye Exam: bilateral eye: PERRL, EOMI Throat Exam: pharynx normal (multiple teeth are partially broken or rubbed down. The left lower 2nd molar is tender, cracked, and has some surrounding swelling. No trismus. Neck supple. No facial cellulitis.) Neck Exam: normal inspection, non-tender, supple Cardiovascular/Respiratory Exam: regular rate/rhythm Neurologic Exam: alert, oriented x 3, cooperative, nml station & gait, sensation nml, No motor deficits Skin Exam: warm, dry SpO2 Interpretation: normal SpO2: 95 Oxygen Delivery: Room Air - Course Nursing assessment & vital signs reviewed: Yes Ordered Tests: Active Orders 24 hr Category Date Time Status Clean Catch Urine Specimen STAT Care 11/22/16 12:20 Active IV Insertion STAT Care 11/22/16 12:20 Active BMP Stat Lab 11/22/16 12:20 Ordered CBC W DIFF Stat Lab 11/22/16 12:20 Ordered UA W/RFX UR CULTURE Stat Lab 11/22/16 12:20 Ordered VENOUS BLOOD GAS Urgent Lab 11/22/16 12:21 Ordered Medication Summary Generic Name Dose Route Start Last Admin Trade Name Anuj PRN Reason Stop Dose Admin Sodium Chloride 1,000 mls @ 999 mls/hr 11/22/16 12:20 Sodium Chloride 0.9% 1000 Ml IV 11/22/16 13:20 .Q1H1M STA Discontinued Medications Generic Name Dose Route Start Last Admin Trade Name Anuj PRN Reason Stop Dose Admin Clindamycin HCl 300 mg 11/22/16 12:21 Cleocin 150 Mg Capsule PO 11/22/16 12:22 STAT ONE Hydromorphone HCl 1 mg 11/22/16 12:20 Hydromorphone 1 Mg/Ml Ampule IV 11/22/16 12:21 STAT ONE - Progress Progress Note: 11/22/16 12:29 Pt was interviewed with JAEL Yeager. Explained to pt and that dental follow up is the mtz to his improvement as this is a dental abscess and problem. He has appt in 2 days. Offered addl list of dentists to include [facility] open 7 days a week. Ordered labs, IVF, IV dilaudid, and oral cleocin. Pt and understood plan. When RN went to room to start IV and draw blood he refused the gown and stated he was leaving and went to the car. stayed behind. She understands what tests and medications were ordered. Advised close dental follow up. Pt left AMA without addl treatment. Counseled pt/family regarding: diagnosis, need for follow-up - Departure Time of Disposition: 12:31 Departure Disposition: AMA Clinical Impression: Diabetes mellitus type I, odontogenic abscess Condition: Stable Critical Care Time: No Referrals: ARY FRIAS [Primary Care Provider] - Additional Instructions: Pt left without written instructions AMA.
== END 2016-11-22 12:38 | disposition left against medical advice (07) ==
LOC: ED 11:57
DX: E10.9 Type 1 diabetes mellitus without complications (principal); K04.7 Periapical abscess without sinus
CPT/HCPCS: 99283

== ENCOUNTER 2017-04-26 05:49 | Observation (INO) | payer BC ==
[2017-04-26] MEDS ORDERED: Sodium Chloride 0.9% 1000 ML 1,000 ML IV STA (06:03)
[2017-04-26] MEDS ORDERED: Nitrostat 0.4 MG (ED) SL ONE ×2 (06:03→06:11)
[2017-04-26] MEDS ORDERED: BABY ASPIRIN 81 MG CHEW PO ONE (06:03)
[2017-04-26] MEDS ORDERED: Phenergan 25 MG INJ IV ONE (06:08)
--- NOTE | 2017-04-26 06:08 | ERPHSYRPT ---
- History of Present Illness Time Seen by Provider: 04/26/17 05:55 Source: patient Exam Limitations: no limitations Patient Subjective Stated Complaint: began having CP within hour of arrival to ED, c/o SOA Triage Nursing Assessment: c/o CP midsternal with SOA, no symptoms prior to bed but states having 2-3 days of dizziness Physician History: FOR THE PAST 2 DAYS PT HAS HAD DIZZINESS(DISEQUILIBRIUM) AND CHILLS. ABOUT 40 MINUTES AGO PT WAS SITTING IN HIS VEHICLE IN THE PARKING LOT AT HIS WORK([email or web address] ) WHEN HE SUDDENLY DEVELOPED DULL CONSTANT LEFT ANTERIOR CHEST PAIN RADIATING TO THE LEFT MID BACK AND LEFT SIDE OF THE NECK, SHORTNESS OF AIR, HEADACHE, NAUSEA AND DIAPHORESIS. Allergies/Adverse Reactions: egg Allergy (Verified 11/22/16 12:06) Home Medications: Metformin HCl 850 mg [Glucophage 850 MG] 850 mg PO TID 03/21/14 [History] Venlafaxine HCl ER 75 mg [Effexor XR 75 MG] 150 mg PO HS 03/21/14 [History ] Amitriptyline HCl 25 mg [Elavil 25 mg] 150 mg PO QHS 05/31/14 [History] Insulin Lispro [Humalog] 100 unit SQ ACHS PRN 10/16/16 [History] Testosterone [Androgel] 1.25 gm TD DAILY 10/16/16 [History] Insulin Degludec [Tresiba Flextouch U-100] 40 unit SQ BID 11/22/16 [History] Hx Tetanus, Diphtheria Vaccination/Date Given: Yes Hx Influenza Vaccination/Date Given: No Hx Pneumococcal Vaccination/Date Given: No Immunizations Up to Date: Yes - Review of Systems Constitutional: Chills Respiratory: Dyspnea Cardiac: Chest Pain Abdominal/Gastrointestinal: Nausea, No Abdominal Pain, No Vomiting Musculoskeletal: Back Pain (LEFT MID BACK PAIN THIS AM) Neurological: Dizziness, Headache Endocrine: Excessive Sweating All Other Systems: Reviewed and Negative - Past Medical History Pertinent Past Medical History: Yes Neurological History: Peripheral Neuropathy, Stroke ENT History: No Pertinent History Cardiac History: Hypertension Respiratory History: No Pertinent History Endocrine Medical History: Diabetes Type II Musculoskeletal History: Other GI Medical History: GERD History: No Pertinent History Psycho-Social History: Anxiety, Depression Male Reproductive Disorders: Other Other Medical History: bad back, CVA 2003.2003, impotence - Past Surgical History Past Surgical History: No Neuro Surgical History: No Pertinent History Cardiac: No Pertinent History Respiratory: No Pertinent History Gastrointestinal: No Pertinent History Genitourinary: No Pertinent History Musculoskeletal: No Pertinent History Male Surgical History: No Pertinent History - Social History Smoking Status: Never smoker Exposure to second hand smoke: Yes Alcohol Use: None Drug Use: none Patient Lives Alone: No Significant Family History: diabetes, hypertension - Nursing Vital Signs Nursing Vital Signs: Initial Vital Signs Temperature 98.5 F 04/26/17 05:50 Pulse Rate 120 H 04/26/17 05:50 Respiratory Rate 20 04/26/17 05:50 Blood Pressure 117/77 04/26/17 05:50 O2 Sat by Pulse Oximetry 99 04/26/17 05:50 Pain Scale Pain Intensity 4 - Physical Exam General Appearance: alert Eye Exam: PERRL/EOMI Ears, Nose, Throat Exam: TMs normal, pharynx normal, moist mucous membranes Neck Exam: normal inspection Respiratory Exam: lungs clear Cardiovascular Exam: tachycardia Gastrointestinal/Abdomen Exam: soft, normal bowel sounds Back Exam: normal range of motion Extremity Exam: normal inspection, No pedal edema Neurologic Exam: alert, cooperative Skin Exam: warm, dry SpO2 Interpretation: normal SpO2: 99 Oxygen Delivery: Room Air - Course Nursing assessment & vital signs reviewed: Yes EKG Interpreted by Me: RATE ([id number]), Sinus Tach, NORMAL AXIS, Non-specific ST Changes - Radiology Exams Chest X-ray Interpretation: Interpreted by me (GRANULOMAS LEFT LUNG(OLD)) Ordered Tests: Active Orders 24 hr Category Date Time Status Kennel Aide STAT Care 04/26/17 06:05 Active Clean Catch Urine Specimen STAT Care 04/26/17 06:03 Active EKG-ER Only STAT Care 04/26/17 06:03 Active IV Insertion STAT Care 04/26/17 06:03 Active Oxygen-ED Only NASAL CANNULA 2 lpm Care 04/26/17 06:03 Active CHEST 2 VIEWS (PA AND LAT) Stat Exams 04/26/17 06:04 Taken AMYLASE Stat Lab 04/26/17 06:15 Completed CBC W DIFF Stat Lab 04/26/17 06:15 Completed CMP Stat Lab 04/26/17 06:15 Completed LIPASE Stat Lab 04/26/17 06:15 Completed MAGNESIUM Stat Lab 04/26/17 06:15 Completed NT PRO BNP Stat Lab 04/26/17 06:15 Completed TROPONIN Q3H Lab 04/26/17 06:15 Completed TROPONIN Q3H Lab 04/26/17 09:15 Ordered TROPONIN Q3H Lab 04/26/17 12:15 Ordered TROPONIN Q3H Lab 04/26/17 15:15 Ordered TROPONIN Q3H Lab 04/26/17 18:15 Ordered UA W/RFX UR CULTURE Stat Lab 04/26/17 06:04 Ordered Urine Triage Profile Stat Lab 04/26/17 06:04 Ordered Medication Summary Generic Name Dose Route Start Last Admin Trade Name Freq PRN Reason Stop Dose Admin Magnesium Sulfate/Dextrose 100 mls @ 200 mls/hr 04/26/17 06:58 Magnesium 1 Gm / 100 Ml D5w IV 04/26/17 07:27 STAT ONE Discontinued Medications Generic Name Dose Route Start Last Admin Trade Name Freq PRN Reason Stop Dose Admin Aspirin 324 mg 04/26/17 06:03 04/26/17 06:22 Baby Aspirin 81 Mg Chew PO 04/26/17 06:04 324 mg STAT ONE Administration Aspirin Confirm 04/26/17 06:10 Baby Aspirin 81 Mg Chew Administered 04/26/17 06:11 Dose 324 mg .ROUTE .STK-MED ONE Sodium Chloride 1,000 mls @ 999 mls/hr 04/26/17 06:03 04/26/17 06:22 Sodium Chloride 0.9% 1000 Ml IV 04/26/17 07:03 999 mls/hr .Q1H1M STA Administration Sodium Chloride Confirm 04/26/17 06:11 Sodium Chloride 0.9% 1000 Ml Administered 04/26/17 06:12 Dose 1,000 mls @ ud .ROUTE .STK-MED ONE Insulin Human Regular 10 unit 04/26/17 06:55 Novolin R IV 04/26/17 06:56 STAT ONE Nitroglycerin 0.4 mg 04/26/17 06:03 04/26/17 06:22 Nitrostat 0.4 Mg (Ed) SL 04/26/17 06:04 0.4 mg STAT ONE Administration Nitroglycerin Confirm 04/26/17 06:11 Nitrostat 0.4 Mg (Ed) Administered 04/26/17 06:12 Dose 0.4 mg SL .STK-MED ONE Promethazine HCl 12.5 mg 04/26/17 06:08 04/26/17 06:28 Phenergan 25 Mg Inj IV 04/26/17 06:09 12.5 mg STAT ONE Administration Promethazine HCl Confirm 04/26/17 06:24 Phenergan 25 Mg Inj Administered 04/26/17 06:25 Dose 25 mg .ROUTE .STK-MED ONE Lab/Rad Data: Laboratory Result Diagrams 04/26/17 06:15 04/26/17 06:15 Laboratory Results 04/26/17 04/26/17 04/26/17 Range/Units 06:15 06:15 06:15 WBC 7.5 (4.0-10.5) K/mm3 RBC 4.75 (4.1-5.6) M/mm3 Hgb 14.7 (12.5-18.0) gm/dl Hct 42.5 (42-50) % MCV 89.5 (78-100) fl MCH 30.9 (26-32) pg MCHC 34.6 (32-36) g/dl RDW 12.9 (11.5-14.0) % Plt Count 234 (150-450) K/mm3 MPV 9.8 H (6-9.5) fl Gran % 56.3 (36.0-66.0) % Lymphocytes % 31.0 (24.0-44.0) % Monocytes % 9.7 (0.0-12.0) % Eosinophils % 2.3 (0.00-5.0) % Basophils % 0.7 (0.0-0.4) % Basophils # 0.05 (0-0.4) Sodium 132 L (136-145) mEq/L Potassium 4.6 (3.5-5.1) mEq/L Chloride 95 L (98-107) mEq/L Carbon Dioxide 27.3 (21-32) mEq/L Anion Gap 14.4 (5-15) MEQ/L BUN 14 (9-20) mg/dL Creatinine 1.51 H (0.55-1.30) mg/dl Estimated GFR 54 ML/MIN Glucose 465 H (70-110) MG/DL Calcium 9.4 (8.5-10.1) mg/dL Magnesium 1.7 L (1.8-2.4) mg/dL Total Bilirubin 0.40 (0.2-1.0) mg/dL AST 18 (15-37) U/L ALT 39 (12-78) U/L Alkaline Phosphatase 121 H (46-116) U/L Troponin I < 0.017 (0.000-0.056) ng/ml NT-Pro-B Natriuret Pep 15 (0-125) pg/ml Serum Total Protein 7.5 (6.4-8.2) gm/dL Albumin 3.5 (3.4-5.0) g/dL Amylase 24 L (25-115) U/L Lipase 62 L (73-393) U/L - Progress Discussed with : Altagracia (JKY - [id number]) - Departure Time of Disposition: 07:13 Departure Disposition: Observation Clinical Impression: CHEST PAIN, HYPOMAGNESEMIA, TACHYCARDIA, HYPERGLYCEMIA, DM, HTN, ANXIETY, DEPRESSION, PN Condition: Stable Critical Care Time: No Referrals: ARY JADE [Primary Care Provider] -
[2017-04-26] MEDS ORDERED: BABY ASPIRIN 81 MG CHEW ONE (06:10)
[2017-04-26] MEDS ORDERED: Sodium Chloride 0.9% 1000 ML 1,000 ML ONE (06:11)
[2017-04-26] MEDS ORDERED: Phenergan 25 MG INJ ONE (06:24)
[2017-04-26 06:30] LABS: BASOPHIL % 0.7 % (0.0-0.4); Basophil (Absolute #) 0.05 (0-0.4); Eosinophil % 2.3 % (0.00-5.0); Eosinophil (Absolute #) 0.17 (0-0.5); Granulocyte Absolute (ANC) 4.23 (1.4-6.9); Granulocytes % 56.3 % (36.0-66.0); Hematocrit 42.5 % (42-50); Hemoglobin 14.7 gm/dl (12.5-18.0); Lymphocyte (Absolute #) 2.33 (1.0-4.6); Mean Cell Volume 89.5 fl (78-100); Mean Corpuscular Hemoglobin 30.9 pg (26-32); Mean Corpuscular Hgb Concent. 34.6 g/dl (32-36); Mean Platelet Volume 9.8 fl (6-9.5); Monocyte (Absolute #) 0.73 (0.0-1.3); Monocytes % 9.7 % (0.0-12.0); Platelet Count 234 K/mm3 (150-450); Red Blood Count 4.75 M/mm3 (4.1-5.6); Red Cell Distribution Width 12.9 % (11.5-14.0); White Blood Count 7.5 K/mm3 (4.0-10.5)
[2017-04-26 06:49] LABS: ALBUMIN 3.5 g/dL (3.4-5.0); ANION GAP 14.4 MEQ/L (5-15); BILIRUBIN,TOTAL 0.4 mg/dL (0.2-1.0); Calcium 9.4 mg/dL (8.5-10.1); Carbon Dioxide 27.3 mEq/L (21-32); Creatinine 1 1.51 mg/dl (0.55-1.30); MAGNESIUM 1.7 mg/dL (1.8-2.4); Potassium 4.6 mEq/L (3.5-5.1); Total Protein 7.5 gm/dL (6.4-8.2)
[2017-04-26] MEDS ORDERED: NovoLIN R IV ONE (06:55)
[2017-04-26] MEDS ORDERED: Magnesium 1 Gm / 100 Ml D5W*** 100 ML IV ONE ×2 (06:58→07:04)
[2017-04-26] MEDS ORDERED: NovoLIN R ONE (07:03)
[2017-04-26 07:41] LABS: Appearance CLEAR (CLEAR); Bilirubin NEGATIVE (NEGATIVE); Blood NEGATIVE Ery/ul (0-5); Glucose 250 mg/dL (NEGATIVE); Ketones NEGATIVE (NEGATIVE); Leukocyte Esterase NEGATIVE (NEGATIVE); Nitrite NEGATIVE (NEGATIVE); Protein,Urine Dip NEGATIVE (Negative); Urobilinogen NORMAL mg/dL (0-1)
[2017-04-26] MEDS ORDERED: Phenergan 25 MG INJ IV PRN (07:48)
[2017-04-26] MEDS ORDERED: Nitrostat 0.4 MG Tablet SL PRN (07:48)
[2017-04-26 07:50] LABS: Amphetamine,Urine NEG. (NEGATIVE); Barbiturate,Urine NEG. (NEGATIVE); Benzodiazepine,Urine NEG. (NEGATIVE); Cocaine,Urine NEG. (NEGATIVE); Methadone,Urine NEG. (NEGATIVE); Opiate,Urine NEG. (NEGATIVE); PCP,Urine NEG. (NEGATIVE); THC,Urine NEG. (NEGATIVE)
[2017-04-26] MEDS: Sodium Chloride 0.9% 1000 ML 1,000 ML IV SCH ×2 (08:36→17:47)
--- NOTE | 2017-04-26 08:42 | XRAY ---
Indication: Chest pain. Comparison: October 16, 2016. PA/lateral chest remains underinflated with now minimal right base discoid atelectasis. Remaining heart, lungs, and bony thorax normal again with incidental calcified granulomas.
[2017-04-26] MEDS: PROTONIX 40 MG IV IV SCH (09:20)
[2017-04-26] MEDS: MAG-OX 400 PO SCH (09:21)
[2017-04-26] MEDS: NovoLOG Insulin SQ PRN ×3 (11:38→22:34)
[2017-04-26] MEDS: TYLENOL 325 MG PO PRN ×2 (12:10→22:27)
[2017-04-26 12:16] LABS: BASOPHIL % 0.5 % (0.0-0.4); Basophil (Absolute #) 0.04 (0-0.4); Eosinophil % 2.2 % (0.00-5.0); Eosinophil (Absolute #) 0.19 (0-0.5); Granulocyte Absolute (ANC) 4.81 (1.4-6.9); Granulocytes % 56.5 % (36.0-66.0); Hematocrit 39.8 % (42-50); Hemoglobin 13.6 gm/dl (12.5-18.0); Lymphocyte (Absolute #) 2.74 (1.0-4.6); Lymphocytes % 32.2 % (24.0-44.0); Mean Cell Volume 90.5 fl (78-100); Mean Corpuscular Hemoglobin 30.9 pg (26-32); Mean Corpuscular Hgb Concent. 34.2 g/dl (32-36); Mean Platelet Volume 9.4 fl (6-9.5); Monocyte (Absolute #) 0.73 (0.0-1.3); Monocytes % 8.6 % (0.0-12.0); Platelet Count 220 K/mm3 (150-450); Red Cell Distribution Width 12.8 % (11.5-14.0); White Blood Count 8.5 K/mm3 (4.0-10.5)
[2017-04-26 12:36] LABS: ALBUMIN 3.2 g/dL (3.4-5.0); ANION GAP 10.8 MEQ/L (5-15); BILIRUBIN,TOTAL 0.4 mg/dL (0.2-1.0); Calcium 8.7 mg/dL (8.5-10.1); Carbon Dioxide 30.5 mEq/L (21-32); Creatinine 1 1.39 mg/dl (0.55-1.30); Potassium 4.9 mEq/L (3.5-5.1)
[2017-04-26] MEDS ORDERED: Compazine 5 MG PO ONE (14:04)
[2017-04-26] MEDS ORDERED: MEDICATION INTERVENTION MC PRN (16:01)
--- NOTE | 2017-04-26 16:34 | PCM.HP ---
History of Present Illness - Chief Complaint Chief Complaint: CHEST PAIN History of Present Illness: is a 42 year old male obese diabetic pt of mine from [facility] who was going to work this morning and had an episode of feeling sweaty , chest pressure on L side (radiating into L shoulder and L neck) with nausea, SOB, and palpitations. He came to ER and had and EKG that was non acute and has had negative troponins x 4. His CXR was non acute. He has had similar episodes several times in the past few months. A few weeks ago he stood up and passed out. He has never had an echo, carotid dopplers, or a stress test. He was scheduled for a lexiscan in the past 6 months but he had to cancel it due to being ill. He did have a holter monitor in the past few months. After our interview, he had an episode of paleness and sweating - vital signs are stable, BS 282. After a few moments it passed and he is feeling better again. His a1c is 11.1. He has a hx of neuropathy. He used to see Dr. Aj, endocrinology, but Dr. Aj left private practice. Over the past several months pt has been treated for tachycardia. He was started on metoprolol at his last hospital stay but he felt his BP was going too low so he stopped it. - Review of Systems Respiratory: Short Of Breath Cardiac: Chest Pain, Palpitations, Syncope Psychological: No Anxiety, No Depression, No Suicidal Ideations, No Homicidal Ideations All Other Systems: Reviewed and Negative Medications & Allergies Home Medications: Home Medication List Metformin HCl 850 mg [Glucophage 850 MG] 850 mg PO TID 03/21/14 [History Confirmed 04/26/17] Venlafaxine HCl ER 75 mg [Effexor XR 75 MG] 225 mg PO HS 03/21/14 [ History Confirmed 04/26/17] Amitriptyline HCl 25 mg [Elavil 25 mg] 150 mg PO QHS 05/31/14 [History Confirmed 04/26/17] Insulin Lispro [Humalog] 100 unit SQ ACHS PRN 10/16/16 [History Confirmed ] Testosterone [Androgel] 1.25 gm TD HS 10/16/16 [History Confirmed 04/26/17] Insulin Degludec [Tresiba Flextouch U-100] 54 unit SQ BID 11/22/16 [History Confirmed 04/26/17] Lisinopril 20 mg [Zestril 20 MG] 30 mg PO HS 04/26/17 [History Confirmed 04/26/17] Metoprolol Succinate [Toprol Xl] 25 mg PO HS 04/26/17 [History Confirmed ] Allergies/Adverse Reactions: Allergies Allergy/AdvReac Type Severity Reaction Status Date / Time egg Allergy Verified 11/22/16 12:06 - Past Medical History Past Medical History: Yes Neurological History: Peripheral Neuropathy, Stroke ENT History: No Pertinent History Cardiac History: Hypertension Respiratory History: No Pertinent History Endocrine Medical History: Diabetes Type II Musculoskelatal History: Other GI Medical History: GERD History: No Pertinent History Pyscho-Social History: Anxiety, Depression Male Reproductive Disorders: Other Comment: 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, impotence, PINCHED NERVES IN BACK, 2014 - Past Surgical History Past Surgical History: No Neuro Surgical History: No Pertinent History Cardiac History: No Pertinent History Respiratory Surgery: No Pertinent History GI Surgical History: No Pertinent History Genitourinary Surgical Hx: No Pertinent History Musculskeletal Surgical Hx: No Pertinent History Male Surgical History: No Pertinent History - Social History Smoking Status: Never smoker Exposure to second hand smoke: No Alcohol: None Drug Use: none Significant Family History: diabetes, hypertension - Physical Exam Vital Signs: Vital Signs - 24 hr Temp Pulse Pulse Resp BP Pulse Ox 04/26/17 11:48 97.9 F 105 H 20 135/79 95 04/26/17 08:44 96 04/26/17 07:59 95.4 F 112 H 20 109/60 94 L 04/26/17 07:48 98.5 F 110 H 20 111/88 99 04/26/17 07:13 99 04/26/17 06:55 110 H 20 111/88 98 04/26/17 06:39 110 H 18 110/56 98 04/26/17 06:25 124 H 16 87/59 93 L 04/26/17 06:20 118 H 18 122/68 97 04/26/17 05:50 98.5 F 126 H 120 H 20 117/77 99 Oxygen-Last 24 hours O2 Percentage 2 Liters = 28% O2 Percentage 2 Liters = 28% O2 Percentage 2 Liters = 28% Results - Labs Lab/Micro Results: Accuchecks Date 04/26/17 Accucheck Value: 324 Lab Results-Last 24 Hours 04/26/17 04/26/17 04/26/17 Range/Units 09:19 12:05 12:05 WBC 8.5 (4.0-10.5) K/mm3 RBC 4.40 (4.1-5.6) M/mm3 Hgb 13.6 (12.5-18.0) gm/dl Hct 39.8 L (42-50) % MCV 90.5 (78-100) fl MCH 30.9 (26-32) pg MCHC 34.2 (32-36) g/dl RDW 12.8 (11.5-14.0) % Plt Count 220 (150-450) K/mm3 MPV 9.4 (6-9.5) fl Gran % 56.5 (36.0-66.0) % Lymphocytes % 32.2 (24.0-44.0) % Monocytes % 8.6 (0.0-12.0) % Eosinophils % 2.2 (0.00-5.0) % Basophils % 0.5 (0.0-0.4) % Basophils # 0.04 (0-0.4) Sodium (136-145) mEq/L Potassium (3.5-5.1) mEq/L Chloride (98-107) mEq/L Carbon Dioxide (21-32) mEq/L Anion Gap (5-15) MEQ/L BUN (9-20) mg/dL Creatinine (0.55-1.30) mg/dl Estimated GFR ML/MIN Glucose (70-110) MG/DL Calcium (8.5-10.1) mg/dL Magnesium (1.8-2.4) mg/dL Total Bilirubin (0.2-1.0) mg/dL AST (15-37) U/L ALT (12-78) U/L Alkaline Phosphatase (46-116) U/L Troponin I < 0.017 < 0.017 (0.000-0.056) ng/ml Serum Total Protein (6.4-8.2) gm/dL Albumin (3.4-5.0) g/dL 04/26/17 04/26/17 Range/Units 12:05 15:07 WBC (4.0-10.5) K/mm3 RBC (4.1-5.6) M/mm3 Hgb (12.5-18.0) gm/dl Hct (42-50) % MCV (78-100) fl MCH (26-32) pg MCHC (32-36) g/dl RDW (11.5-14.0) % Plt Count (150-450) K/mm3 MPV (6-9.5) fl Gran % (36.0-66.0) % Lymphocytes % (24.0-44.0) % Monocytes % (0.0-12.0) % Eosinophils % (0.00-5.0) % Basophils % (0.0-0.4) % Basophils # (0-0.4) Sodium 135 L (136-145) mEq/L Potassium 4.9 (3.5-5.1) mEq/L Chloride 99 (98-107) mEq/L Carbon Dioxide 30.5 (21-32) mEq/L Anion Gap 10.8 (5-15) MEQ/L BUN 13 (9-20) mg/dL Creatinine 1.39 H (0.55-1.30) mg/dl Estimated GFR 60 ML/MIN Glucose 352 H (70-110) MG/DL Calcium 8.7 (8.5-10.1) mg/dL Magnesium 2.0 (1.8-2.4) mg/dL Total Bilirubin 0.40 (0.2-1.0) mg/dL AST 19 (15-37) U/L ALT 37 (12-78) U/L Alkaline Phosphatase 109 (46-116) U/L Troponin I < 0.017 (0.000-0.056) ng/ml Serum Total Protein 7.0 (6.4-8.2) gm/dL Albumin 3.2 L (3.4-5.0) g/dL Accuchecks Date 04/26/17 Accucheck Value: 324 Assessment/Plan (1) Chest pain, rule out acute myocardial infarction Current Visit: Yes Status: Acute Assessment & Plan: To rule out for [place]. Consulting cardiology, thank you. Troponins neg x 4. Code(s): R07.9 - CHEST PAIN, UNSPECIFIED (2) Syncope Current Visit: Yes Status: Acute Qualifiers: Syncope type: unspecified Qualified Code(s): R55 - Syncope and collapse Assessment & Plan: carotid dopplers, echo. On telemetry. Code(s): R55 - SYNCOPE AND COLLAPSE (3) Tachycardia Current Visit: Yes Status: Acute Assessment & Plan: Has been around 100 (up to 121 at admission) for some months. Was treating at home w metoprolol, but he did not tolerate it well. Cardiology to address, thank you. Code(s): R00.0 - TACHYCARDIA, UNSPECIFIED (4) Diabetes mellitus type I Current Visit: No Status: Chronic Qualifiers: Diabetes mellitus complication status: with neurologic complications Diabetes mellitus complication detail: with polyneuropathy Qualified Code(s): E10.42 - Type 1 diabetes mellitus with diabetic polyneuropathy Assessment & Plan: Pt's a1c is 11.1, down from 14 at one point. His case sealer left practice so we have been attempting to manage at Family medicine, but he is fairly brittle. Would like for him to f/u with endocrinology. His neuropathy is quite marked.
[2017-04-26] MEDS ORDERED: Zestril 20 MG PO SCH (22:00)
[2017-04-26] MEDS ORDERED: Toprol-Xl 25MG Tablets PO SCH (22:00)
[2017-04-26] MEDS ORDERED: ELAVIL 25 MG PO SCH (22:00)
[2017-04-26] MEDS ORDERED: INSULIN DEGLUDEC SQ SCH (22:00)
[2017-04-26] MEDS ORDERED: Effexor XR 75 MG PO SCH (22:00)
[2017-04-26] MEDS: Glucophage 850 MG PO SCH (22:27)
[2017-04-27] MEDS: Sodium Chloride 0.9% 1000 ML 1,000 ML IV SCH ×2 (03:51→13:30)
[2017-04-27] MEDS: NovoLOG Insulin SQ PRN ×3 (08:12→16:52)
--- NOTE | 2017-04-27 08:48 | PCM.DS ---
Discharge Summary Date of Admission: 04/26/17 07:41 Admitting Physician: ARY JADE Consults: Consults on Case 04/26/17 16:28 Consult Cardiology ROUTINE 04/26/17 16:29 Consult Cardiology ROUTINE Primary Care Provider: ARY JADE Allergies Allergies egg Allergy (Verified 11/22/16 12:06) Hospital Summary - Hospital Course Hospital Course: Admitted with episode of chest tightness and diaphoresis, troponins all negative. CXR neg. BS elevated, this is not unusual for this pt with A1c of 11.1. His chest pain resolved after 3-4 hours. He is tachycardic, which has been an issue for at least the past several months (was on toprol then he discontinued it for fatigue). He admitted to syncope in the past few weeks. Echo and carotid dopplers are pending. He is being referred to cardiology, they are doing telemedicine consult today, thank you. After this ok to d/c home. - Vitals & Intake/Output Vital Signs: Vital Signs Temperature 97.6 F 04/27/17 07:38 Pulse Rate 90 04/27/17 07:38 Respiratory Rate 18 04/27/17 07:38 Blood Pressure 142/89 04/27/17 07:38 O2 Sat by Pulse Oximetry 92 L 04/27/17 07:38 Oxygen-Last Documented O2 Percentage 2 Liters = 28% Intake & Output: Intake & Output 04/24/17 04/25/17 04/26/17 04/27/17 11:59 11:59 11:59 11:59 Intake Total 2357 Output Total 500 Balance 1857 Weight 108 kg 108.1 kg - Lab Result Diagrams: 04/26/17 12:05 04/26/17 12:05 Lab Results-Last 24 Hrs: Accuchecks Date 04/27/17 Date 04/26/17 Date 04/26/17 Time 22:00 Accucheck Value: 230 Accucheck Value: 282 Accucheck Value: 324 Lab Results-Last 24 Hours 04/26/17 04/26/17 04/26/17 Range/Units 09:19 12:05 12:05 WBC 8.5 (4.0-10.5) K/mm3 RBC 4.40 (4.1-5.6) M/mm3 Hgb 13.6 (12.5-18.0) gm/dl Hct 39.8 L (42-50) % MCV 90.5 (78-100) fl MCH 30.9 (26-32) pg MCHC 34.2 (32-36) g/dl RDW 12.8 (11.5-14.0) % Plt Count 220 (150-450) K/mm3 MPV 9.4 (6-9.5) fl Gran % 56.5 (36.0-66.0) % Lymphocytes % 32.2 (24.0-44.0) % Monocytes % 8.6 (0.0-12.0) % Eosinophils % 2.2 (0.00-5.0) % Basophils % 0.5 (0.0-0.4) % Basophils # 0.04 (0-0.4) Sodium (136-145) mEq/L Potassium (3.5-5.1) mEq/L Chloride (98-107) mEq/L Carbon Dioxide (21-32) mEq/L Anion Gap (5-15) MEQ/L BUN (9-20) mg/dL Creatinine (0.55-1.30) mg/dl Estimated GFR ML/MIN Glucose (70-110) MG/DL Calcium (8.5-10.1) mg/dL Magnesium (1.8-2.4) mg/dL Total Bilirubin (0.2-1.0) mg/dL AST (15-37) U/L ALT (12-78) U/L Alkaline Phosphatase (46-116) U/L Troponin I < 0.017 < 0.017 (0.000-0.056) ng/ml Serum Total Protein (6.4-8.2) gm/dL Albumin (3.4-5.0) g/dL 04/26/17 04/26/17 04/26/17 Range/Units 12:05 15:07 18:45 WBC (4.0-10.5) K/mm3 RBC (4.1-5.6) M/mm3 Hgb (12.5-18.0) gm/dl Hct (42-50) % MCV (78-100) fl MCH (26-32) pg MCHC (32-36) g/dl RDW (11.5-14.0) % Plt Count (150-450) K/mm3 MPV (6-9.5) fl Gran % (36.0-66.0) % Lymphocytes % (24.0-44.0) % Monocytes % (0.0-12.0) % Eosinophils % (0.00-5.0) % Basophils % (0.0-0.4) % Basophils # (0-0.4) Sodium 135 L (136-145) mEq/L Potassium 4.9 (3.5-5.1) mEq/L Chloride 99 (98-107) mEq/L Carbon Dioxide 30.5 (21-32) mEq/L Anion Gap 10.8 (5-15) MEQ/L BUN 13 (9-20) mg/dL Creatinine 1.39 H (0.55-1.30) mg/dl Estimated GFR 60 ML/MIN Glucose 352 H (70-110) MG/DL Calcium 8.7 (8.5-10.1) mg/dL Magnesium 2.0 (1.8-2.4) mg/dL Total Bilirubin 0.40 (0.2-1.0) mg/dL AST 19 (15-37) U/L ALT 37 (12-78) U/L Alkaline Phosphatase 109 (46-116) U/L Troponin I < 0.017 < 0.017 (0.000-0.056) ng/ml Serum Total Protein 7.0 (6.4-8.2) gm/dL Albumin 3.2 L (3.4-5.0) g/dL 04/27/17 Range/Units 07:59 WBC (4.0-10.5) K/mm3 RBC (4.1-5.6) M/mm3 Hgb (12.5-18.0) gm/dl Hct (42-50) % MCV (78-100) fl MCH (26-32) pg MCHC (32-36) g/dl RDW (11.5-14.0) % Plt Count (150-450) K/mm3 MPV (6-9.5) fl Gran % (36.0-66.0) % Lymphocytes % (24.0-44.0) % Monocytes % (0.0-12.0) % Eosinophils % (0.00-5.0) % Basophils % (0.0-0.4) % Basophils # (0-0.4) Sodium (136-145) mEq/L Potassium (3.5-5.1) mEq/L Chloride (98-107) mEq/L Carbon Dioxide (21-32) mEq/L Anion Gap (5-15) MEQ/L BUN (9-20) mg/dL Creatinine (0.55-1.30) mg/dl Estimated GFR ML/MIN Glucose (70-110) MG/DL Calcium (8.5-10.1) mg/dL Magnesium 1.9 (1.8-2.4) mg/dL Total Bilirubin (0.2-1.0) mg/dL AST (15-37) U/L ALT (12-78) U/L Alkaline Phosphatase (46-116) U/L Troponin I (0.000-0.056) ng/ml Serum Total Protein (6.4-8.2) gm/dL Albumin (3.4-5.0) g/dL Micro Results-Entire Visit: Accuchecks Date 04/27/17 Date 04/26/17 Date 04/26/17 Time 22:00 Accucheck Value: 230 Accucheck Value: 282 Accucheck Value: 324 - Radiology Exams Ordered Rad Exams-Entire Visit: Radiology Procedures Category Date Time Status ECHO W/2D AND DOPPLER [US] Routine Exams 04/27/17 08:00 Taken Discharge Exam General Appearance: no apparent distress, alert, obese Neurologic Exam: oriented x 3, cooperative Skin Exam: normal color, warm, dry, No rash Respiratory Exam: normal breath sounds, lungs clear, No crackles/rales, No rhonchi, No wheezing Cardiovascular Exam: regular rate/rhythm, normal heart sounds, No murmur Extremity Exam: No pedal edema, No swelling Final Diagnosis/Problem List - Final Discharge Diagnosis/Problem (1) Chest pain, rule out acute myocardial infarction Current Visit: Yes Status: Acute Assessment & Plan: NH ruled out. Needs stress test - can't get it today as nuclear medicine is not here today. (2) Syncope Current Visit: Yes Status: Acute Assessment & Plan: workup pending. (3) Tachycardia Current Visit: Yes Status: Acute Assessment & Plan: cardiology consulted. Did not tolerate toprol. Unsure the etiology. (4) Diabetes mellitus type I Current Visit: No Status: Chronic Assessment & Plan: uncontrolled. - Discharge Disposition: Home, Self-Care Condition: Good Prescriptions: Continue Venlafaxine HCl ER 75 mg [Effexor XR 75 MG] 225 mg PO HS Metformin HCl 850 mg [Glucophage 850 MG] 850 mg PO TID Amitriptyline HCl 25 mg [Elavil 25 mg] 150 mg PO QHS Testosterone [Androgel] 1.25 gm TD HS Insulin Lispro [Humalog] 100 unit SQ ACHS PRN PRN Reason: blood sugar Insulin Degludec [Tresiba Flextouch U-100] 54 unit SQ BID Lisinopril 20 mg [Zestril 20 MG] 30 mg PO HS Discontinued Metoprolol Succinate [Toprol Xl] 25 mg PO HS Follow up with: ARY JADE [Primary Care Provider] -
[2017-04-27] MEDS: MAG-OX 400 PO SCH (09:37)
[2017-04-27] MEDS: Glucophage 850 MG PO SCH ×2 (09:37→14:45)
[2017-04-27] MEDS: PROTONIX 40 MG IV IV SCH (09:40)
[2017-04-27 09:53] LABS: ANION GAP 13.1 MEQ/L (5-15); BLOOD UREA NITROGEN 15 mg/dL (9-20); CHLORIDE 103 mEq/L (98-107); Calcium 8.4 mg/dL (8.5-10.1); Carbon Dioxide 26.7 mEq/L (21-32); Creatinine 1 1.28 mg/dl (0.55-1.30); EST GLOMERULAR FILTRATION RATE > 60 ML/MIN; Glucose 246 MG/DL (70-110); Potassium 4.9 mEq/L (3.5-5.1); SODIUM 138 mEq/L (136-145)
[2017-04-27] MEDS ORDERED: PATIENT OWN MEDICATION SQ SCH (10:00)
[2017-04-27] MEDS: TYLENOL 325 MG PO PRN (13:30)
[2017-04-27] MEDS ORDERED: Compazine 5 MG PO PRN (15:28)
[2017-04-27 18:37] VITALS: BP 111/75; PULSE 97; O2SAT 97
== END 2017-04-27 18:20 | disposition home or self-care (01) ==
LOC: ED 05:49 → MED SURG 07:41
PROVIDERS: ADMIT Family Medicine; ATTEND Family Medicine
DX: R07.9 Chest pain, unspecified (principal); R55 Syncope and collapse; R00.0 Tachycardia, unspecified; E10.9 Type 1 diabetes mellitus without complications; Z79.4 Long term (current) use of insulin; Z79.899 Other long term (current) drug therapy; I10 Essential (primary) hypertension; K21.9 Gastro-esophageal reflux disease without esophagitis; F41.8 Other specified anxiety disorders; Z86.73 Personal history of transient ischemic attack (TIA), and cerebral infarction without residual deficits; G62.9 Polyneuropathy, unspecified
CPT/HCPCS: 36000; 36415; 71046; 80048; 80053; 80307; 81002; 82150; 82962; 83036; 83690; 83735; 83880; 84484; 85025; 93005; 93041; 93268; 93306; 94760; 99285; G0378; J2550; J3475; Q3014; A9270-GY

== ENCOUNTER 2017-05-22 21:17 | Emergency (ER) | payer BC ==
[2017-05-22] MEDS ORDERED: Norco 10/325 MG Tablet PO ONE (22:08)
--- NOTE | 2017-05-22 22:13 | ERPHSYRPT ---
- History of Present Illness Time Seen by Provider: 05/22/17 22:00 Source: patient Exam Limitations: clinical condition Patient Subjective Stated Complaint: Toothache Triage Nursing Assessment: Pt presents to the ED with complaints of toothache since to right lower side of mouth. Scheduled for root canal on Wednesday. States ibuprofen OTC did not help pain. Penicillin started on Wednesday for complaint. No distress noted. Physician History: PATIENT WITH A HISTORY OF DIABETES AND HYPERTENSION COMPLAINS OF WIDESPREAD DENTAL CARIES, SCHEDULED FOR EXTRACTIONS IN 2 DAYS, HAS INCREASING PAIN OVER THE PAST 2 DAYS. DENIES FEVER, CHILLS DIFFICULTY SWALLOWING OR BREATHING. Timing/Duration: gradual onset Severity: moderate ENT Location: dental Prearrival Treatment: over the counter meds Modifying Factors: Improves With: nothing Associated Symptoms: tooth pain Allergies/Adverse Reactions: egg Allergy (Verified 11/22/16 12:06) Home Medications: Metformin HCl 850 mg [Glucophage 850 MG] 850 mg PO TID 03/21/14 [History] Venlafaxine HCl ER 75 mg [Effexor XR 75 MG] 225 mg PO HS 03/21/14 [History ] Amitriptyline HCl 25 mg [Elavil 25 mg] 150 mg PO QHS 05/31/14 [History] Insulin Lispro [Humalog] 100 unit SQ ACHS PRN 10/16/16 [History] Testosterone [Androgel] 1.25 gm TD HS 10/16/16 [History] Insulin Degludec [Tresiba Flextouch U-100] 54 unit SQ BID 11/22/16 [History] Lisinopril 20 mg [Zestril 20 MG] 30 mg PO HS 04/26/17 [History] Hx Tetanus, Diphtheria Vaccination/Date Given: Yes Hx Influenza Vaccination/Date Given: No Hx Pneumococcal Vaccination/Date Given: No Immunizations Up to Date: Yes - Review of Systems Constitutional: No Fever, No Chills Eyes: No Symptoms Ears, Nose, & Throat: No Symptoms, Other (DENTAL PAIN) Respiratory: No Cough, No Dyspnea Cardiac: No Symptoms, No Chest Pain, No Edema, No Syncope Abdominal/Gastrointestinal: No Symptoms, No Abdominal Pain, No Nausea, No Vomiting, No Diarrhea Genitourinary Symptoms: No Dysuria Musculoskeletal: No Back Pain, No Neck Pain Skin: No Rash Neurological: No Dizziness, No Focal Weakness, No Sensory Changes Psychological: No Symptoms Endocrine: No Symptoms All Other Systems: Reviewed and Negative - Past Medical History Pertinent Past Medical History: Yes Neurological History: Peripheral Neuropathy, Stroke ENT History: No Pertinent History Cardiac History: Hypertension Respiratory History: No Pertinent History Endocrine Medical History: Diabetes Type II Musculoskeletal History: Other GI Medical History: GERD History: No Pertinent History Psycho-Social History: Anxiety, Depression Male Reproductive Disorders: Other Other Medical History: CVA 2003.2004, impotence, PINCHED NERVES IN BACK, 2015 - Past Surgical History Past Surgical History: No Neuro Surgical History: No Pertinent History Cardiac: No Pertinent History Respiratory: No Pertinent History Gastrointestinal: No Pertinent History Genitourinary: No Pertinent History Musculoskeletal: No Pertinent History Male Surgical History: No Pertinent History - Social History Smoking Status: Never smoker Exposure to second hand smoke: No Alcohol Use: None Drug Use: none Patient Lives Alone: No Significant Family History: diabetes, hypertension - Nursing Vital Signs Nursing Vital Signs: Initial Vital Signs Temperature 97.8 F 05/22/17 21:47 Pulse Rate 115 H 05/22/17 21:47 Respiratory Rate 16 05/22/17 21:47 Blood Pressure 167/103 05/22/17 21:47 O2 Sat by Pulse Oximetry 97 05/22/17 21:47 Pain Scale Pain Intensity 10 - Physical Exam General Appearance: no apparent distress, alert Eye Exam: bilateral eye: PERRL, EOMI Nasal Exam: normal inspection Throat Exam: pharynx normal, dental tenderness (DIFFUSE DENTAL CARIES WITH EROSIONS INTO GINGIVA), moist mucus membranes, No tonsillar exudate Neck Exam: supple Cardiovascular/Respiratory Exam: normal breath sounds, regular rate/rhythm Neurologic Exam: alert, oriented x 3, sensation nml, No motor deficits Skin Exam: normal color, warm, dry SpO2: 97 Oxygen Delivery: Room Air - Progress Progress: improved Progress Note: 05/22/17 22:13 ADMINISTERED NORCO 10/325 ORALLY Counseled pt/family regarding: diagnosis, need for follow-up - Departure Time of Disposition: 22:30 Departure Disposition: Home Clinical Impression: WIDESPREAD DENTAL CARIES Condition: Stable Critical Care Time: No Referrals: ARY JADE [Primary Care Provider] - Additional Instructions: CONTINUE ALL CURRENT MEDICATIONS DIRECTED. NORCO 10/325 EVERY 4-6 HOURS NEEDED FOR PAIN. FOLLOWUP WITH YOUR DENTIST SCHEDULED IN 2 DAYS. Prescriptions: Hydrocodone/APAP 10/325 mg [[place] 10/325 MG Tablet] 1 tab PO Q4H PRN PRN # 8 tablet MDD 4 PRN Reason: DENTAL PAIN
[2017-05-22] MEDS ORDERED: Norco 10/325 MG Tablet ONE (22:14)
[2017-05-22 22:28] VITALS: BP 149/86; PULSE 76; O2SAT 96
== END 2017-05-22 22:28 | disposition home or self-care (01) ==
LOC: ED 21:17
DX: K02.9 Dental caries, unspecified (principal); Z79.899 Other long term (current) drug therapy
CPT/HCPCS: 99283; A9270-GY

== ENCOUNTER 2017-05-25 12:06 | Inpatient (IN) | payer BC ==
[2017-05-25] MEDS ORDERED: Hydromorphone 1 mg/ml Ampule IV ONE ×2 (13:06→14:42)
[2017-05-25] MEDS ORDERED: Sodium Chloride 0.9% 1000 ML 1,000 ML IV SCH (13:15)
[2017-05-25 13:23] LABS: BASOPHIL % 0.2 % (0.0-0.4); Basophil (Absolute #) 0.03 (0-0.4); Eosinophil % 1.4 % (0.00-5.0); Eosinophil (Absolute #) 0.17 (0-0.5); Granulocyte Absolute (ANC) 9.46 (1.4-6.9); Hematocrit 42.6 % (42-50); Hemoglobin 14.7 gm/dl (12.5-18.0); Lymphocyte (Absolute #) 1.92 (1.0-4.6); Lymphocytes % 15.4 % (24.0-44.0); Mean Cell Volume 89.9 fl (78-100); Mean Corpuscular Hgb Concent. 34.5 g/dl (32-36); Mean Platelet Volume 9.4 fl (6-9.5); Monocyte (Absolute #) 0.87 (0.0-1.3); Platelet Count 284 K/mm3 (150-450); Red Blood Count 4.74 M/mm3 (4.1-5.6); Red Cell Distribution Width 12.8 % (11.5-14.0); White Blood Count 12.5 K/mm3 (4.0-10.5)
[2017-05-25] MEDS ORDERED: Hydromorphone 1 mg/ml Ampule ONE ×2 (13:37→14:53)
--- NOTE | 2017-05-25 13:47 | ERPHSYRPT ---
- History of Present Illness Time Seen by Provider: 05/25/17 12:40 Source: patient, family Patient Subjective Stated Complaint: PT states "He has a dental abscess and and has seen the dentist and they put him on an antibiotic and he was taking those, not getting any better so we went back to dentist and they added flagyl, then we came to the ed on wednesday and they gave him norco but his face is still swelling so we called his family doc and she said to come through the ed and she would admit him." Triage Nursing Assessment: Pt alert and oriented X 3, skin pwd. the left side of pt face swollen, pt teeth have several dental carries, no apparent respiratory distress. Physician History: CC: tooth abscess Hx: 42 y/o diabetic pt of Dr Frias and Dr Lyles. He has tooth abscess on right lower jaw. Has seen dentist for norco, PCN, and then flagyl yesterday. Continues to have increased swelling and pain. No fever. Mild feeling of trouble swallowing in his throat. No trouble breathing. No vomiting. Sugars [address] Frias sent here to be evaluated for admission. Pain is severe. Allergies/Adverse Reactions: egg Allergy (Verified 11/22/16 12:06) Home Medications: Metformin HCl 850 mg [Glucophage 850 MG] 850 mg PO TID 03/21/14 [History] Venlafaxine HCl ER 75 mg [Effexor XR 75 MG] 225 mg PO HS 03/21/14 [History ] Amitriptyline HCl 25 mg [Elavil 25 mg] 150 mg PO QHS 05/31/14 [History] Insulin Lispro [Humalog] 100 unit SQ ACHS PRN 10/16/16 [History] Testosterone [Androgel] 1.25 gm TD HS 10/16/16 [History] Insulin Degludec [Tresiba Flextouch U-100] 54 unit SQ BID 11/22/16 [History] Lisinopril 20 mg [Zestril 20 MG] 30 mg PO HS 04/26/17 [History] Metronidazole [Flagyl] 500 mg PO TID 05/25/17 [History] Penicillin V Potassium 500 mg PO QID 05/25/17 [History] Hx Tetanus, Diphtheria Vaccination/Date Given: Yes Hx Influenza Vaccination/Date Given: No Hx Pneumococcal Vaccination/Date Given: No Immunizations Up to Date: Yes - Review of Systems Constitutional: Malaise, No Fever, No Chills Eyes: No Vision Changes, No Double Vision Ears, Nose, & Throat: Mouth Pain, Throat Pain Respiratory: No Cough, No Dyspnea Cardiac: No Chest Pain Abdominal/Gastrointestinal: No Abdominal Pain, No Nausea, No Vomiting All Other Systems: Reviewed and Negative - Past Medical History Pertinent Past Medical History: Yes Neurological History: Peripheral Neuropathy, Stroke ENT History: No Pertinent History Cardiac History: Hypertension Respiratory History: No Pertinent History Endocrine Medical History: Diabetes Type II Musculoskeletal History: Other GI Medical History: GERD History: No Pertinent History Psycho-Social History: Anxiety, Depression Male Reproductive Disorders: Other Other Medical History: CVA 2003.2003, impotence, PINCHED NERVES IN BACK, 2014 - Past Surgical History Past Surgical History: No Neuro Surgical History: No Pertinent History Cardiac: No Pertinent History Respiratory: No Pertinent History Gastrointestinal: No Pertinent History Genitourinary: No Pertinent History Musculoskeletal: No Pertinent History Male Surgical History: No Pertinent History - Social History Smoking Status: Never smoker Exposure to second hand smoke: No Alcohol Use: None Drug Use: none Patient Lives Alone: No Significant Family History: diabetes, hypertension - Nursing Vital Signs Nursing Vital Signs: Initial Vital Signs Temperature 98.1 F 05/25/17 12:42 Pulse Rate 122 H 05/25/17 12:42 Respiratory Rate 18 05/25/17 12:42 Blood Pressure 141/102 05/25/17 12:42 O2 Sat by Pulse Oximetry 98 05/25/17 12:42 Pain Scale Pain Intensity 10 - Physical Exam General Appearance: alert Eye Exam: bilateral eye: PERRL, EOMI Throat Exam: pharynx normal Neck Exam: normal inspection, non-tender, supple, trachea midline Cardiovascular/Respiratory Exam: normal breath sounds, regular rate/rhythm, tachycardia Abdominal Exam: non-tender, soft Neurologic Exam: alert, oriented x 3, cooperative, waiter/waitress second class II-XII nml as tested, sensation nml, No motor deficits Skin Exam: warm, dry, other (no facial cellulitis), No rash SpO2 Interpretation: normal SpO2: 98 Comments: Poor dentition. Right lower molar abscess with swelling in the gum. Right facial swelling without redness or cellulitis. - Course Nursing assessment & vital signs reviewed: Yes - CT Exams neck CT Interpretation: Tele-radiologist Report (right neck cellulitis, dental caries , no large abscess, airway widely patent) Ordered Tests: Active Orders 24 hr Category Date Time Status IV Insertion STAT Care 05/25/17 13:01 Active NPO (ED) STAT Care 05/25/17 13:06 Active NECK WO CONTRAST [CT] Stat Exams 05/25/17 13:07 Completed BLOOD CULTURE Stat Lab 05/25/17 13:20 Received CBC W DIFF Stat Lab 05/25/17 13:00 Completed CMP Stat Lab 05/25/17 13:00 Completed Lactic Acid Stat Lab 05/25/17 13:05 Completed Medication Summary Generic Name Dose Route Start Last Admin Trade Name Freq PRN Reason Stop Dose Admin Sodium Chloride 1,000 mls @ 250 mls/hr 05/25/17 13:15 05/25/17 13:38 Sodium Chloride 0.9% 1000 Ml IV 06/24/17 13:14 250 mls/hr .Q4H DASHAWN Administration Clindamycin HCl/Dextrose 900 mg in 50 mls @ 100 mls/hr 05/25/17 15:08 Clindamycin-D5w 900 Mg/50 Ml IV 05/25/17 15:37 STAT STA Ceftriaxone Sodium/Dextrose 1 g in 50 mls @ 100 mls/hr 05/25/17 15:08 Rocephin 1 Gm-D5w 50 Ml Bag IV 05/25/17 15:37 STAT STA Discontinued Medications Generic Name Dose Route Start Last Admin Trade Name Freq PRN Reason Stop Dose Admin Hydromorphone HCl 1 mg 05/25/17 13:06 05/25/17 13:38 Hydromorphone 1 Mg/Ml Ampule IV 05/25/17 13:07 1 mg STAT ONE Administration Hydromorphone HCl Confirm 05/25/17 13:37 Hydromorphone 1 Mg/Ml Ampule Administered 05/25/17 13:38 Dose 1 mg .ROUTE .STK-MED ONE Hydromorphone HCl 1 mg 05/25/17 14:42 05/25/17 14:54 Hydromorphone 1 Mg/Ml Ampule IV 05/25/17 14:43 1 mg STAT ONE Administration Hydromorphone HCl Confirm 05/25/17 14:53 Hydromorphone 1 Mg/Ml Ampule Administered 05/25/17 14:54 Dose 1 mg .ROUTE .STK-MED ONE Insulin Aspart 12 unit 05/25/17 15:07 Novolog Insulin SQ 05/25/17 15:08 STAT ONE Lab/Rad Data: Laboratory Result Diagrams 05/25/17 13:00 05/25/17 13:00 Laboratory Results 05/25/17 05/25/17 05/25/17 Range/Units 13:05 13:00 13:00 WBC 12.5 H (4.0-10.5) K/mm3 RBC 4.74 (4.1-5.6) M/mm3 Hgb 14.7 (12.5-18.0) gm/dl Hct 42.6 (42-50) % MCV 89.9 (78-100) fl MCH 31.0 (26-32) pg MCHC 34.5 (32-36) g/dl RDW 12.8 (11.5-14.0) % Plt Count 284 (150-450) K/mm3 MPV 9.4 (6-9.5) fl Gran % 76.0 H (36.0-66.0) % Lymphocytes % 15.4 L (24.0-44.0) % Monocytes % 7.0 (0.0-12.0) % Eosinophils % 1.4 (0.00-5.0) % Basophils % 0.2 (0.0-0.4) % Basophils # 0.03 (0-0.4) Sodium 131 L (136-145) mEq/L Potassium 4.8 (3.5-5.1) mEq/L Chloride 95 L (98-107) mEq/L Carbon Dioxide 29.9 (21-32) mEq/L Anion Gap 10.8 (5-15) MEQ/L BUN 15 (9-20) mg/dL Creatinine 1.79 H (0.55-1.30) mg/dl Estimated GFR 45 ML/MIN Glucose 477 H (70-110) MG/DL Lactic Acid 1.4 (0.4-2.0) Calcium 9.7 (8.5-10.1) mg/dL Total Bilirubin 0.50 (0.2-1.0) mg/dL AST 13 L (15-37) U/L ALT 25 (12-78) U/L Alkaline Phosphatase 114 (46-116) U/L Serum Total Protein 8.2 (6.4-8.2) gm/dL Albumin 3.3 L (3.4-5.0) g/dL - Progress Progress Note: 05/25/17 13:[address] to rule out extension into neck. 05/25/17 15:21 The patient is stable. Cultures sent. Cleocin and Rocephin given. Called Dr Frias who advised admit to IP as he has failed OP therapy. Discussed with Dr.: Altagracia Will see patient in: hospital (full admit) Counseled pt/family regarding: lab results, diagnosis, need for follow-up, rad results - Departure Time of Disposition: 15:22 Departure Disposition: In-patient Admission Clinical Impression: Hyperglycemia due to type 1 diabetes mellitus, Dental caries, right neck cellulitis Condition: Fair Critical Care Time: No Referrals: ARY FRIAS [Primary Care Provider] -
[2017-05-25 14:10] LABS: ALBUMIN 3.3 g/dL (3.4-5.0); ANION GAP 10.8 MEQ/L (5-15); BILIRUBIN,TOTAL 0.5 mg/dL (0.2-1.0); Calcium 9.7 mg/dL (8.5-10.1); Carbon Dioxide 29.9 mEq/L (21-32); Creatinine 1 1.79 mg/dl (0.55-1.30); Potassium 4.8 mEq/L (3.5-5.1); Total Protein 8.2 gm/dL (6.4-8.2)
--- NOTE | 2017-05-25 15:04 | XRAY ---
Indication: Right tooth abscess. Right neck/throat irritation Multiple contiguous axial images obtained through the neck without contrast as ordered. Comparison: None There is mild right neck cutaneous and subcutaneous induration favoring underlying inflammatory/infectious process. No suspicious fluid or air collection. There are a few scattered centimeter and subcentimeter right submandibular lymph nodes presumed reactive. Additional scattered small cervical lymph nodes bilaterally none pathologically enlarged. Parotid and submandibular glands are bilaterally symmetric. Supra-and infraglottic airway widely patent. Thyroid gland homogeneous. Major arteries and veins are normal in course and caliber. Underlying cervical spine intact with mild C5-C6 anterior endplate spurring. Right lower molar and smaller left premolar dental caries. Images through the base of the brain are unremarkable. Impression: 1. Right neck cellulitis. No suspicious fluid/air collection. Small reactive lymph nodes. 2. Bilateral lower dental caries. CT DI 12.20
[2017-05-25] MEDS ORDERED: NovoLOG Insulin SQ ONE (15:07)
[2017-05-25] MEDS ORDERED: CLINDAMYCIN-D5W 900 MG/50 ML*** 900 MG/50 ML BAG IV STA (15:08)
[2017-05-25] MEDS ORDERED: ROCEPHIN 1 Gm-D5w 50 ml Bag** 1 G/50 ML IVPB IV STA (15:08)
[2017-05-25] MEDS ORDERED: NovoLOG Insulin ONE (15:26)
[2017-05-25] MEDS ORDERED: CLINDAMYCIN-D5W 900 MG/50 ML*** 900 MG/50 ML BAG IV ONE (15:26)
[2017-05-25] MEDS ORDERED: ROCEPHIN 1 Gm-D5w 50 ml Bag** 1 G/50 ML IVPB IV ONE (15:26)
[2017-05-25] MEDS ORDERED: TYLENOL 325 MG PO PRN (15:53)
[2017-05-25] MEDS ORDERED: DILAUDID 2 MG INJECTION IV PRN (15:53)
[2017-05-25] MEDS ORDERED: SUBLIMAZE 100 MCG/2 ML IV ONE (17:16)
[2017-05-25] MEDS: Zofran 4 MG/2 ML VIAL IV PRN (17:39)
[2017-05-25] MEDS: Sodium Chloride 0.9% 1000 ML 1,000 ML IV SCH (17:55)
[2017-05-25] MEDS: ENOXAPARIN SODIUM SQ SCH (18:26)
[2017-05-25] MEDS: NovoLOG Insulin SQ PRN ×2 (18:27→22:46)
[2017-05-25] MEDS ORDERED: DILAUDID 2 MG INJECTION IV STA (19:04)
[2017-05-25] MEDS ORDERED: DILAUDID 1 MG/1ML PCA IV PRN (19:09)
--- NOTE | 2017-05-25 19:16 | PCM.HP ---
History of Present Illness - Chief Complaint Chief Complaint: right neck cellulitis History of Present Illness: is a 42 year old male pt of mine from [facility] with Type I DM and peripheral neuropathy who came to the ER with increased facial pain and swelling. He has been treated for a dental issue for several weeks, R lower jaw , and was placed on antibiotics by Dr. Lyles recently. He went to the ER 4d ago and was treated and released. Dr. Lyles saw him yesterday, I believe, and changed his antibiotic. Pt has not had fever at home. Has been tolerating po. Did feel some tightness in the jaw and neck but has been breathing fine. Pain is severe. He had 2 mg dilaudid IV in the ER which helped. He had 1 mg dilaudid on med surg followed by 25mcg fentanyl without relief. Has not slept well in 2d. CT shows cellulitis into the neck. - Review of Systems Constitutional: No Fever Ears, Nose, & Throat: Throat Pain, Other (facial/jaw/neck pain and swelling) All Other Systems: Reviewed and Negative Medications & Allergies Home Medications: Home Medication List Metformin HCl 850 mg [Glucophage 850 MG] 850 mg PO TID 03/21/14 [History Confirmed 05/25/17] Venlafaxine HCl ER 75 mg [Effexor XR 75 MG] 225 mg PO HS 03/21/14 [ History Confirmed 05/25/17] Amitriptyline HCl 25 mg [Elavil 25 mg] 150 mg PO QHS 05/31/14 [History Confirmed 05/25/17] Insulin Lispro [Humalog] 100 unit SQ ACHS PRN 10/16/16 [History Confirmed ] Testosterone [Androgel] 1.25 gm TD HS 10/16/16 [History Confirmed 05/25/17] Insulin Degludec [Tresiba Flextouch U-100] 54 unit SQ BID 11/22/16 [History Confirmed 04/26/17] Lisinopril 20 mg [Zestril 20 MG] 30 mg PO HS 04/26/17 [History Confirmed 05/25/17] Aspirin 81 mg PO DAILY #1 tablet 04/27/17 [Rx Confirmed 05/25/17] Pravastatin Sodium 20 mg PO HS #30 tablet 04/27/17 [Rx Confirmed 05/25/17] Hydrocodone/APAP 10/325 mg [Oliver 10/325 MG Tablet] 1 tab PO Q4H PRN PRN # 8 tablet MDD 4 05/22/17 [Rx Confirmed 05/25/17] Metronidazole [Flagyl] 500 mg PO TID 05/25/17 [History Confirmed 05/25/17] Penicillin V Potassium 500 mg PO QID 05/25/17 [History Confirmed 05/25/17] Allergies/Adverse Reactions: Allergies Allergy/AdvReac Type Severity Reaction Status Date / Time egg Allergy Verified 11/22/16 12:06 - Past Medical History Past Medical History: Yes Neurological History: Peripheral Neuropathy, Stroke ENT History: No Pertinent History Cardiac History: Hypertension Respiratory History: No Pertinent History Endocrine Medical History: Diabetes Type II Musculoskelatal History: Other GI Medical History: GERD History: No Pertinent History Pyscho-Social History: Anxiety, Depression Male Reproductive Disorders: Other Comment: 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, impotence, PINCHED NERVES IN BACK, 2014 - Past Surgical History Past Surgical History: No Neuro Surgical History: No Pertinent History Cardiac History: No Pertinent History Respiratory Surgery: No Pertinent History GI Surgical History: No Pertinent History Genitourinary Surgical Hx: No Pertinent History Musculskeletal Surgical Hx: No Pertinent History Male Surgical History: No Pertinent History - Social History Smoking Status: Never smoker Exposure to second hand smoke: No Alcohol: None Drug Use: none Significant Family History: diabetes, hypertension - Physical Exam Vital Signs: Vital Signs - 24 hr Temp Pulse Resp BP Pulse Ox 05/25/17 16:02 98.2 F 110 H 18 125/89 98 05/25/17 16:00 98.6 F 118 H 24 140/89 93 L 05/25/17 15:23 98 05/25/17 14:55 98.2 F 110 H 18 125/89 96 05/25/17 14:02 98.2 F 110 H 16 125/89 98 05/25/17 12:42 98.1 F 122 H 18 141/102 98 General Appearance: moderate distress, alert, other (lying very still on the bed , some trismus noted with speaking) Neurologic Exam: oriented x 3, cooperative Ears, Nose, Throat Exam: TMs normal, other (mucous membranes dry in mouth. poor dentition throughout. exam difficult due to pt's pain.) Neck Exam: other (edema on R, throughout. TTP from base of neck to mandible, and from mid mandible to postauricular area.) Respiratory Exam: normal breath sounds, lungs clear, No crackles/rales, No rhonchi, No wheezing Cardiovascular Exam: normal heart sounds, tachycardia, No murmur Gastrointestinal/Abdomen Exam: soft, normal bowel sounds, No tenderness, No mass , No guarding, No rebound Extremity Exam: No pedal edema, No swelling Results - Labs Lab/Micro Results: Accuchecks Date 05/25/17 Time 16:30 Accucheck Value: 322 Lab Results-Last 24 Hours 05/25/17 Range/Units 18:05 Glucose 322 H (70-110) MG/DL Accuchecks Date 05/25/17 Time 16:30 Accucheck Value: 322 Assessment/Plan (1) Cellulitis Current Visit: Yes Status: Acute Qualifiers: Laterality: right Assessment & Plan: R neck. On IV rocephin and clindamycin. Already states the pressure is a little less, but the pain is persistent. 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 Code(s): L03.90 - CELLULITIS, UNSPECIFIED (2) Dental caries Current Visit: Yes Status: Acute Assessment & Plan: severe; will try to get pt to an oral surgeon. With the diabetes, oral infection is high risk for him. Code(s): K02.9 - DENTAL CARIES, UNSPECIFIED (3) Tachycardia Current Visit: No Status: Chronic Assessment & Plan: chronic Code(s): R00.0 - TACHYCARDIA, UNSPECIFIED (4) Diabetes mellitus type I Current Visit: No Status: Chronic Qualifiers: Diabetes mellitus complication status: with neurologic complications Diabetes mellitus complication detail: with polyneuropathy Qualified Code(s): E10.42 - Type 1 diabetes mellitus with diabetic polyneuropathy (5) Full code status Current Visit: Yes Status: Acute Assessment & Plan: Discuss with pt and his . Initially he desired SCO status, telling me that since pain meds don't work well on him he would not like to lie in a bed after having procedures and be in pain. I explained that since this illness could conceivably cause his airway to be temporarily occluded, it makes sense to have the option to intubate. Pt agrees to be full code. Code(s): Z78.9 - OTHER SPECIFIED HEALTH STATUS
[2017-05-25] MEDS ORDERED: INSULIN DEGLUDEC SQ SCH (22:00)
[2017-05-25] MEDS ORDERED: NON-FORMULARY ITEM (Pravastatin Sodium [Pravastatin Sodium] 20 MG) PO SCH (22:00)
[2017-05-25] MEDS: Zestril 10 MG PO SCH (22:43)
[2017-05-25] MEDS: Effexor XR 75 MG PO SCH (22:45)
[2017-05-25] MEDS: ZOCOR 20MG PO SCH (22:45)
[2017-05-25] MEDS: PATIENT OWN MEDICATION SQ SCH (22:49)
[2017-05-25] MEDS: CLINDAMYCIN-D5W 900 MG/50 ML*** 900 MG/50 ML BAG IV SCH (22:51)
[2017-05-26] MEDS: CLINDAMYCIN-D5W 900 MG/50 ML*** 900 MG/50 ML BAG IV SCH ×3 (05:36→22:15)
[2017-05-26] MEDS: Sodium Chloride 0.9% 1000 ML 1,000 ML IV SCH (05:37)
[2017-05-26] MEDS: NovoLOG Insulin SQ PRN ×4 (07:54→22:08)
--- NOTE | 2017-05-26 08:57 | PCM.NOTE ---
Date and Time: 05/26/17 0853 Subjective Assessment: He's doing better this morning although the dilaudid [employer] isn't helping much. The 2mg dilaudid IV helped last night quite a bit. Pain was down to 5/10 but is now creeping back up. oswaldo po. Swelling is down. Less pressure on throat. - Review of Systems Constitutional: No Fever Ears, Nose, & Throat: Other (neck swelling, less) Objective Exam General Appearance: mild distress, alert Neurologic Exam: oriented x 3, cooperative Skin Exam: normal color, warm, dry, No rash Ears, Nose, Throat Exam: other (R facial edema centered around the R mandible, decreased from yesterday.) Respiratory Exam: normal breath sounds, lungs clear, No crackles/rales, No rhonchi, No wheezing Cardiovascular Exam: regular rate/rhythm, normal heart sounds, No murmur OBJECTIVE DATA Vital Signs: Vital Signs - 24 hr Temp Pulse Resp BP Pulse Ox 05/26/17 07:07 98.6 F 110 H 18 130/84 97 05/26/17 04:00 98.3 F 113 H 18 130/83 98 05/26/17 01:06 106 H 16 97 05/26/17 00:02 98.8 F 105 H 16 131/83 95 05/25/17 20:00 98.6 F 78 16 134/82 97 05/25/17 16:02 98.2 F 110 H 18 125/89 98 05/25/17 16:00 98.6 F 118 H 24 140/89 93 L 05/25/17 15:23 98 05/25/17 14:55 98.2 F 110 H 18 125/89 96 05/25/17 14:02 98.2 F 110 H 16 125/89 98 05/25/17 12:42 98.1 F 122 H 18 141/102 98 Oxygen-Last 24 hours O2 Percentage 2 Liters = 28% Pain Assessment - Last Documented Pain Intensity 4 Pain Scale Used 0-10 Pain Scale Intake and Output: Intake & Output 05/23/17 05/24/17 05/25/17 05/26/17 11:59 11:59 11:59 11:59 Intake Total 2264 Output Total 500 Balance 1764 Weight 103.2 kg Lab Results: Accuchecks Date 05/26/17 Date 05/25/17 Date 05/25/17 Time 07:34 Time 22:00 Time 16:30 Accucheck Value: 269 Accucheck Value: 303 Accucheck Value: 322 Lab Results-Last 24 Hours 05/25/17 Range/Units 18:05 Glucose 322 H (70-110) MG/DL Assessment/Plan (1) Cellulitis Current Visit: Yes Status: Acute Qualifiers: Laterality: right Assessment & Plan: improved, on day #2 of IV clindamycin and rocephin. Code(s): L03.90 - CELLULITIS, UNSPECIFIED (2) Dental caries Current Visit: Yes Status: Acute Assessment & Plan: The cure for his condition after cellulitis resolves is going to be tooth extraction. I will try to find an oral surgeon today that may be able to extract those teeth before he is discharged to home. With his concurrent DM I he is at significant risk for further infection until the teeth are removed. Code(s): K02.9 - DENTAL CARIES, UNSPECIFIED (3) Tachycardia Current Visit: No Status: Chronic Code(s): R00.0 - TACHYCARDIA, UNSPECIFIED (4) Diabetes mellitus type I Current Visit: No Status: Chronic Qualifiers: Diabetes mellitus complication status: with neurologic complications Diabetes mellitus complication detail: with polyneuropathy Qualified Code(s): E10.42 - Type 1 diabetes mellitus with diabetic polyneuropathy (5) Full code status Current Visit: Yes Status: Acute Code(s): Z78.9 - OTHER SPECIFIED HEALTH STATUS
[2017-05-26] MEDS ORDERED: PHARMACY DOSING REQUIRED: DILAUDID PCA IV ONE (09:08)
[2017-05-26] MEDS ORDERED: DILAUDID 1 MG/1ML PCA IV PRN (09:22)
[2017-05-26] MEDS: ROCEPHIN 1 Gm-D5w 50 ml Bag** 1 G/50 ML IVPB IV SCH (09:28)
[2017-05-26] MEDS: ENOXAPARIN SODIUM SQ SCH (09:30)
[2017-05-26] MEDS: PATIENT OWN MEDICATION SQ SCH ×2 (09:32→22:09)
[2017-05-26 09:42] LABS: BASOPHIL % 0.3 % (0.0-0.4); Basophil (Absolute #) 0.03 (0-0.4); Eosinophil % 1.6 % (0.00-5.0); Eosinophil (Absolute #) 0.17 (0-0.5); Granulocyte Absolute (ANC) 7.61 (1.4-6.9); Granulocytes % 72.5 % (36.0-66.0); Hematocrit 39.4 % (42-50); Hemoglobin 13.4 gm/dl (12.5-18.0); Lymphocyte (Absolute #) 1.69 (1.0-4.6); Lymphocytes % 16.1 % (24.0-44.0); Mean Cell Volume 91.8 fl (78-100); Mean Corpuscular Hemoglobin 31.2 pg (26-32); Mean Platelet Volume 8.9 fl (6-9.5); Monocytes % 9.5 % (0.0-12.0); Platelet Count 246 K/mm3 (150-450); Red Blood Count 4.29 M/mm3 (4.1-5.6); Red Cell Distribution Width 12.8 % (11.5-14.0); White Blood Count 10.5 K/mm3 (4.0-10.5)
[2017-05-26] MEDS: TORAdol 30 mg Injection IV SCH ×3 (10:00→22:07)
[2017-05-26 10:10] LABS: ANION GAP 9.8 MEQ/L (5-15); BLOOD UREA NITROGEN 9 mg/dL (9-20); CHLORIDE 100 mEq/L (98-107); Calcium 8.7 mg/dL (8.5-10.1); Carbon Dioxide 28.3 mEq/L (21-32); EST GLOMERULAR FILTRATION RATE > 60 ML/MIN; Glucose 273 MG/DL (70-110); Potassium 3.8 mEq/L (3.5-5.1); SODIUM 134 mEq/L (136-145)
[2017-05-26] MEDS: BENADRYL 50 MG/ML IV PRN ×2 (15:25→22:08)
[2017-05-26] MEDS: Zestril 10 MG PO SCH (22:06)
[2017-05-26] MEDS: Effexor XR 75 MG PO SCH (22:07)
[2017-05-26] MEDS: ZOCOR 20MG PO SCH (22:07)
[2017-05-27] MEDS: TORAdol 30 mg Injection IV SCH (04:11)
[2017-05-27] MEDS: Sodium Chloride 0.9% 1000 ML 1,000 ML IV SCH ×2 (04:12→17:21)
[2017-05-27] MEDS: CLINDAMYCIN-D5W 900 MG/50 ML*** 900 MG/50 ML BAG IV SCH ×3 (06:16→21:44)
[2017-05-27] MEDS: PATIENT OWN MEDICATION SQ SCH (08:57)
[2017-05-27] MEDS: ENOXAPARIN SODIUM SQ SCH (08:57)
[2017-05-27] MEDS: ROCEPHIN 1 Gm-D5w 50 ml Bag** 1 G/50 ML IVPB IV SCH (08:58)
[2017-05-27] MEDS: NovoLOG Insulin SQ PRN ×3 (08:58→22:33)
--- NOTE | 2017-05-27 09:14 | PCM.NOTE ---
Date and Time: 05/27/17 09 Subjective Assessment: He is feeling much better, had toradol yesterday with good results. Pain pump increased yesterday but he is not needing it very often. His swelling is down. Advanced diet to soft mechanical yesterday. Objective Exam General Appearance: no apparent distress, alert Neurologic Exam: oriented x 3, cooperative Skin Exam: normal color, warm, dry Ears, Nose, Throat Exam: other (R distal mandible edematous, no pitting, no erythema or crepitus, but ttp. Submandibular and pre-and post auricular areas completely nttp.) Respiratory Exam: normal breath sounds, lungs clear, No crackles/rales, No rhonchi, No wheezing Cardiovascular Exam: normal heart sounds, tachycardia, No murmur OBJECTIVE DATA Vital Signs: Vital Signs - 24 hr Temp Pulse Resp BP Pulse Ox 05/27/17 08:06 94 L 05/27/17 07:42 98 F 70 20 108/65 97 05/27/17 04:00 98.3 F 105 H 14 118/76 94 L 05/27/17 00:00 98.3 F 116 H 16 104/58 97 05/26/17 21:11 90 L 05/26/17 20:00 98.3 F 116 H 18 111/63 92 L 05/26/17 15:12 98.3 F 20 97 05/26/17 14:53 93 L 05/26/17 11:04 98.6 F 94 H 14 112/70 94 L Oxygen-Last 24 hours O2 Percentage 2 Liters = 28% O2 Percentage 2 Liters = 28% Pain Assessment - Last Documented Pain Intensity 3 Pain Scale Used 0-10 Pain Scale Intake and Output: Intake & Output 05/24/17 05/25/17 05/26/17 05/27/17 11:59 11:59 11:59 11:59 Intake Total 2264 3539 Output Total 500 800 Balance 1764 2739 Weight 103.2 kg Lab Results: Accuchecks Date 05/26/17 Date 05/26/17 Date 05/26/17 Time 22:00 Time 16:35 Time 11:09 Accucheck Value: 300 Accucheck Value: 249 Accucheck Value: 272 Lab Results-Last 24 Hours 05/26/17 05/26/17 Range/Units 09:12 09:12 WBC 10.5 (4.0-10.5) K/mm3 RBC 4.29 (4.1-5.6) M/mm3 Hgb 13.4 (12.5-18.0) gm/dl Hct 39.4 L (42-50) % MCV 91.8 (78-100) fl MCH 31.2 (26-32) pg MCHC 34.0 (32-36) g/dl RDW 12.8 (11.5-14.0) % Plt Count 246 (150-450) K/mm3 MPV 8.9 (6-9.5) fl Gran % 72.5 H (36.0-66.0) % Lymphocytes % 16.1 L (24.0-44.0) % Monocytes % 9.5 (0.0-12.0) % Eosinophils % 1.6 (0.00-5.0) % Basophils % 0.3 (0.0-0.4) % Basophils # 0.03 (0-0.4) Sodium 134 L (136-145) mEq/L Potassium 3.8 (3.5-5.1) mEq/L Chloride 100 (98-107) mEq/L Carbon Dioxide 28.3 (21-32) mEq/L Anion Gap 9.8 (5-15) MEQ/L BUN 9 (9-20) mg/dL Creatinine 1.20 (0.55-1.30) mg/dl Estimated GFR > 60 ML/MIN Glucose 273 H (70-110) MG/DL Calcium 8.7 (8.5-10.1) mg/dL Multi-Disciplinary Progress Notes: Multi-Disciplinary Progress Notes 05/26/17 14:32 Case Management Note by Daniela Benz S/Dinesh MARTELL AT [phone] [facility] TO QUESTION COVERAGE OF ORAL SURGERY DONE HERE AT AN INPT VISIT THE PATIENT AND FAMILY WERE WORRIED ABOUT COVERAGE. WAS TOLD THAT IF THE VISIT WERE APPROVED/COVERED, THEN ANYTHING THAT THE DOCTOR ORDERED THAT HAD TO DO WITH THAT VISIT, INCLUDING, ORAL SURGERY WOULD BE APPROVED. AT THIS TIME PENDING APPROVAL. Initialized on 05/26/17 14:32 - END OF NOTE Assessment/Plan (1) Cellulitis Current Visit: Yes Status: Acute Qualifiers: Laterality: right Assessment & Plan: Much improved. I called an oral surgeon yesterday who was not interested in pursuing inpatient extraction. They will make some inquiries regarding other oral surgeons. Our train planner looking into their insurance coverage, thank you. Code(s): L03.90 - CELLULITIS, UNSPECIFIED (2) Dental caries Current Visit: Yes Status: Acute Assessment & Plan: Needs teeth extracted, with DM I at high risk for severe infection. Code(s): K02.9 - DENTAL CARIES, UNSPECIFIED (3) Tachycardia Current Visit: No Status: Resolved Code(s): R00.0 - TACHYCARDIA, UNSPECIFIED (4) Diabetes mellitus type I Current Visit: No Status: Chronic Qualifiers: Diabetes mellitus complication status: with neurologic complications Diabetes mellitus complication detail: with polyneuropathy Qualified Code(s): E10.42 - Type 1 diabetes mellitus with diabetic polyneuropathy (5) Full code status Current Visit: Yes Status: Acute Code(s): Z78.9 - OTHER SPECIFIED HEALTH STATUS
[2017-05-27] MEDS: TORAdol 30 mg Injection IV PRN (11:46)
[2017-05-27] MEDS: Zofran 4 MG/2 ML VIAL IV PRN ×2 (15:22→17:21)
[2017-05-27] MEDS ORDERED: Sodium Chloride 0.9% 500 ML 500 ML IV ONE (15:50)
[2017-05-27] MEDS ORDERED: Phenergan 25 MG INJ IV PRN (17:10)
[2017-05-27] MEDS ORDERED: Sodium Chloride 0.9% 250 ML 250 ML IV SCH (17:30)
[2017-05-27 18:38] LABS: 027 TOX PROD PRESUMPTIVE NEGATIVE (NEGATIVE); TOXIGENIC C. DIFF ORG NEGATIVE (NEGATIVE)
[2017-05-27] MEDS ORDERED: OXYCODONE-ACETAMINOPHEN 10-325 PO PRN (20:40)
[2017-05-27] MEDS ORDERED: Mylicon 80MG PO PRN ×2 (20:50→20:57)
[2017-05-27] MEDS ORDERED: Tums EX 750 MG PO SCH (22:00)
[2017-05-27] MEDS ORDERED: Tums EX 750 MG PO PRN (22:30)
[2017-05-27] MEDS: Effexor XR 75 MG PO SCH (22:31)
[2017-05-27] MEDS: ZOCOR 20MG PO SCH (22:31)
[2017-05-27] MEDS: Zestril 10 MG PO SCH (22:32)
[2017-05-28] MEDS ORDERED: IMODIUM 2 MG PO PRN (00:30)
[2017-05-28] MEDS: MOTRIN 400 MG PO PRN ×2 (00:39→17:18)
[2017-05-28 01:03] LABS: Granulocyte Absolute (ANC) 12.86 (1.4-6.9); Hematocrit 35.8 % (42-50); Mean Corpuscular Hemoglobin 30.8 pg (26-32); Mean Corpuscular Hgb Concent. 33.5 g/dl (32-36); Mean Platelet Volume 8.6 fl (6-9.5); Platelet Count 252 K/mm3 (150-450); Red Blood Count 3.89 M/mm3 (4.1-5.6); Red Cell Distribution Width 12.7 % (11.5-14.0); White Blood Count 14.3 K/mm3 (4.0-10.5)
[2017-05-28 01:34] LABS: ALBUMIN 2.5 g/dL (3.4-5.0); ANION GAP 12.6 MEQ/L (5-15); BILIRUBIN,TOTAL 0.5 mg/dL (0.2-1.0); Calcium 8.2 mg/dL (8.5-10.1); Creatinine 1 1.7 mg/dl (0.55-1.30); Total Protein 6.3 gm/dL (6.4-8.2)
[2017-05-28 01:40] LABS: Potassium 5.4 mEq/L (3.5-5.1)
[2017-05-28] MEDS ORDERED: Vancomycin 1GM/ Ns 250ML*** 250 ML IV ONE (01:59)
[2017-05-28] MEDS ORDERED: PHARMACY DOSING REQUIRED: VANCOMYCIN IV SCH (02:00)
[2017-05-28 05:13] LABS: Lymphocytes 14 % (24-44); Monocyte 4 % (0.0-12.0); Neutrophils 82 % (36.-66.); Platelet Estimate NORMAL (NORMAL); Total Cells Counted 100
[2017-05-28] MEDS: CLINDAMYCIN-D5W 900 MG/50 ML*** 900 MG/50 ML BAG IV SCH ×2 (05:32→14:32)
[2017-05-28] MEDS: PATIENT OWN MEDICATION SQ SCH (05:34)
[2017-05-28] MEDS: Sodium Chloride 0.9% 1000 ML 1,000 ML IV SCH (05:38)
[2017-05-28] MEDS: NovoLOG Insulin SQ PRN ×3 (07:56→16:35)
--- NOTE | 2017-05-28 09:10 | PCM.DS ---
Discharge Summary Date of Admission: 05/25/17 15:49 Admitting Physician: ARY JADE Primary Care Provider: ARY JADE Allergies Allergies egg Allergy (Verified 11/22/16 12:06) Hospital Summary - Hospital Course Hospital Course: Pt is a 42 yo diabetic on insulin, poorly controlled. Pt was being treated outpatient by his dentist for dental caries. He was placed on po penicillin and flagyl but his R sided facial swelling continued to increase. He felt pressure in the throat and dentist (Dr. Lyles, in [place], [place] ) advised him to go to the hospital for IV antibiotics. He came in through the ER and CT neck showed dental caries and cellulitis extending distally into the neck. Initially his pain was from the post auricular area through the distal mandible on the R and extending inferiorly to the base of the neck on the R. He was put on IV rocephin and clindamycin and over the next 2 days improved quite a bit, with decreased pain and swelling of the neck. Yesterday he started having diarrhea; c. diff testing was negative. Yesterday afternoon he started having RLQ abdominal pain, 4/10, crampy, constant. Has some nausea. He went to the bathroom and while on the toilet he became pale and diaphoretic, BP in the 80s systolic and presyncopal. Since then he continues to complain of nausea and abd pain. His bp improved with 750cc IV fluid bolus. He has had several similar episodes in the past that his thought might be due to anxiety, but she states this was different. He did have one episode of sweating and feeling faint in my office at one point. He was set up for an outpatient cardiology appt but had to cancel. He also feels that it's difficult to urinate and he's having to strain - this is new over the past few days. Plan is to transfer pt to higher level of care in order to access ID, dental surgery, and cardiology consults. In the meantime, will image the abdomen. - Vitals & Intake/Output Vital Signs: Vital Signs Temperature 98.7 F 05/28/17 08:00 Pulse Rate 104 H 05/28/17 08:00 Respiratory Rate 20 05/28/17 08:00 Blood Pressure 138/88 05/28/17 08:00 O2 Sat by Pulse Oximetry 93 L 05/28/17 08:00 Oxygen-Last Documented O2 Percentage 2 Liters = 28% Intake & Output: Intake & Output 05/25/17 05/26/17 05/27/17 05/28/17 11:59 11:59 11:59 11:59 Intake Total 2264 3899 2283 Output Total 500 1000 1500 Balance 1764 2899 783 Weight 103.2 kg 103.2 kg - Lab Result Diagrams: 05/28/17 00:30 05/28/17 00:30 Lab Results-Last 24 Hrs: Accuchecks Date 05/28/17 Date 05/27/17 Date 05/27/17 Time 16:00 Time 11:30 Accucheck Value: 256 Accucheck Value: 431 Accucheck Value: 367 Accucheck Value: 284 Lab Results-Last 24 Hours 05/27/17 05/28/17 05/28/17 Range/Units 17:15 00:30 00:30 WBC 14.3 H (4.0-10.5) K/mm3 RBC 3.89 L (4.1-5.6) M/mm3 Hgb 12.0 L (12.5-18.0) gm/dl Hct 35.8 L (42-50) % MCV 92.0 (78-100) fl MCH 30.8 (26-32) pg MCHC 33.5 (32-36) g/dl RDW 12.7 (11.5-14.0) % Plt Count 252 (150-450) K/mm3 MPV 8.6 (6-9.5) fl Segmented Neutrophils 82 H (36.-66.) % Lymphocytes (Manual) 14 L (24-44) % Monocytes (Manual) 4 (0.0-12.0) % Differential Comment NORMAL Platelet Estimate NORMAL (NORMAL) Sodium 132 L (136-145) mEq/L Potassium 5.4 H (3.5-5.1) mEq/L Chloride 99 (98-107) mEq/L Carbon Dioxide 26.0 (21-32) mEq/L Anion Gap 12.6 (5-15) MEQ/L BUN 14 (9-20) mg/dL Creatinine 1.70 H (0.55-1.30) mg/dl Estimated GFR 47 ML/MIN Glucose 458 H (70-110) MG/DL Lactic Acid (0.4-2.0) Calcium 8.2 L (8.5-10.1) mg/dL Total Bilirubin 0.50 (0.2-1.0) mg/dL AST 18 (15-37) U/L ALT 25 (12-78) U/L Alkaline Phosphatase 114 (46-116) U/L Serum Total Protein 6.3 L (6.4-8.2) gm/dL Albumin 2.5 L (3.4-5.0) g/dL Stl C. diff Tox B Gene NEGATIVE (NEGATIVE) C.difficile 027-NAP1-B1 PRESUMPTIVE NEGATIVE (NEGATIVE) 05/28/17 Range/Units 00:55 WBC (4.0-10.5) K/mm3 RBC (4.1-5.6) M/mm3 Hgb (12.5-18.0) gm/dl Hct (42-50) % MCV (78-100) fl MCH (26-32) pg MCHC (32-36) g/dl RDW (11.5-14.0) % Plt Count (150-450) K/mm3 MPV (6-9.5) fl Segmented Neutrophils (36.-66.) % Lymphocytes (Manual) (24-44) % Monocytes (Manual) (0.0-12.0) % Differential Comment Platelet Estimate (NORMAL) Sodium (136-145) mEq/L Potassium (3.5-5.1) mEq/L Chloride (98-107) mEq/L Carbon Dioxide (21-32) mEq/L Anion Gap (5-15) MEQ/L BUN (9-20) mg/dL Creatinine (0.55-1.30) mg/dl Estimated GFR ML/MIN Glucose (70-110) MG/DL Lactic Acid 1.6 (0.4-2.0) Calcium (8.5-10.1) mg/dL Total Bilirubin (0.2-1.0) mg/dL AST (15-37) U/L ALT (12-78) U/L Alkaline Phosphatase (46-116) U/L Serum Total Protein (6.4-8.2) gm/dL Albumin (3.4-5.0) g/dL Stl C. diff Tox B Gene (NEGATIVE) C.difficile 027-NAP1-B1 (NEGATIVE) Micro Results-Entire Visit: Accuchecks Date 05/28/17 Date 05/27/17 Date 05/27/17 Time 16:00 Time 11:30 Accucheck Value: 256 Accucheck Value: 431 Accucheck Value: 367 Accucheck Value: 284 - Procedures and Test Procedures and Tests throughout Hospitalization: Therapy Orders & Screens 05/26/17 01:05 Oxygen NASAL CANNULA 2 lpm Comment: Diagnosis: right neck cellulitis Discharge Exam General Appearance: mild distress (nauseated; pt remains still throughout exam) , alert Neurologic Exam: oriented x 3, cooperative Skin Exam: normal color, warm, dry, No rash Ears, Nose, Throat Exam: moist mucous membranes, other (R distal mandible swelling and ttp, no erythema or induration, no fluctuance. oropharynx with caries throughout, no overt erythema or exudate.) Neck Exam: non-tender, No lymphadenopathy Respiratory Exam: normal breath sounds, lungs clear, No crackles/rales, No rhonchi, No wheezing Cardiovascular Exam: regular rate/rhythm, normal heart sounds, No murmur Gastrointestinal/Abdomen Exam: soft, normal bowel sounds, tenderness (throughout ), No distention, No mass, No guarding, No rebound Extremity Exam: normal inspection, No pedal edema, No swelling Final Diagnosis/Problem List - Final Discharge Diagnosis/Problem (1) Cellulitis Current Visit: Yes Status: Acute Assessment & Plan: Of face and neck, improved. However would benefit from oral surgery consult, in this pt with poorly controlled diabetes, he really just needs the teeth extracted. (2) Abdominal pain Current Visit: Yes Status: Acute Assessment & Plan: Will do CT abd/pelvis, will not be able to do IV contrast due to decreased GFR this morning. (3) Dental caries Current Visit: Yes Status: Acute (4) Tachycardia Current Visit: No Status: Resolved Assessment & Plan: has been a chronic issus; another reason for cardiology referral. (5) Diabetes mellitus type I Current Visit: No Status: Chronic Assessment & Plan: BS poorly controlled; try increasing tresiba to 58 units BID from 54 units BID. Used to see a diabetic specialist with good results but he hasn't been able to get in to another since then. (6) Full code status Current Visit: Yes Status: Acute Assessment & Plan: Initially he wanted to be a no code; he has a high pain tolerance and "didn't want to have to lay there in pain." We discussed at admission since this is a condition that could compromise the airway, but is temporary, he agreed to be a full code here. (7) Chronic renal disease Current Visit: Yes Status: Acute Assessment & Plan: Has some elevated cr this admission, likely related to diabetes, does not have a research intern. Cr 1.4 on 10/16/16. (8) Urinary retention Current Visit: Yes Status: Acute Assessment & Plan: Will see if CT shows distended bladder; if unclear will do ultrasound. Place monsalve if needed. Discussed with pt. (9) DVT prophylaxis Current Visit: Yes Status: Acute Assessment & Plan: On lovenox 40mg SQ daily. - Discharge Disposition: Home, Self-Care Condition: Fair Prescriptions: No Action Venlafaxine HCl ER 75 mg [Effexor XR 75 MG] 225 mg PO HS Metformin HCl 850 mg [Glucophage 850 MG] 850 mg PO TID Amitriptyline HCl 25 mg [Elavil 25 mg] 150 mg PO QHS Testosterone [Androgel] 1.25 gm TD HS Insulin Lispro [Humalog] 100 unit SQ ACHS PRN PRN Reason: blood sugar Insulin Degludec [Tresiba Flextouch U-100] 54 unit SQ BID Lisinopril 20 mg [Zestril 20 MG] 30 mg PO HS Aspirin 81 mg PO DAILY #1 tablet Pravastatin Sodium 20 mg PO HS #30 tablet Hydrocodone/APAP 10/325 mg [[place] 10/325 MG Tablet] 1 tab PO Q4H PRN PRN #8 tablet MDD 4 PRN Reason: DENTAL PAIN Penicillin V Potassium 500 mg PO QID Metronidazole [Flagyl] 500 mg PO TID Additional Instructions: Follow up with psychologist Joan Fuentes on June 18, 2017 at 11:00 AM. Follow up with: ARY JADE [Primary Care Provider] -
[2017-05-28] MEDS: ENOXAPARIN SODIUM SQ SCH (09:47)
[2017-05-28] MEDS: ROCEPHIN 1 Gm-D5w 50 ml Bag** 1 G/50 ML IVPB IV SCH (09:48)
[2017-05-28] MEDS ORDERED: VANCOCIN 1 GM VIAL*** 1 GM in Sodium Chloride 0.9% 250 ML 250 ML IV SCH (10:00)
[2017-05-28] MEDS ORDERED: PATIENT OWN MEDICATION SQ SCH (10:00)
[2017-05-28 11:33] VITALS: O2SAT 95
[2017-05-28] MEDS: Zofran 4 MG/2 ML VIAL IV PRN ×2 (11:41→16:34)
[2017-05-28 12:09] LABS: Appearance CLEAR (CLEAR); Bilirubin NEGATIVE (NEGATIVE); Blood NEGATIVE Ery/ul (0-5); Glucose 1000 mg/dL (NEGATIVE); Ketones SMALL-15 (NEGATIVE); Leukocyte Esterase NEGATIVE (NEGATIVE); Nitrite NEGATIVE (NEGATIVE); Protein,Urine Dip NEGATIVE (Negative); Urobilinogen NORMAL mg/dL (0-1)
[2017-05-28] MEDS: TORAdol 30 mg Injection IV PRN (14:33)
[2017-05-28] MEDS ORDERED: Zosyn 3.375GM/100 Ml D5W 3.375 GM/100 ML IVPB IV SCH (14:45)
[2017-05-28 16:33] VITALS: BP 136/90; PULSE 112
[2017-05-28] MEDS ORDERED: DILAUDID 2 MG INJECTION IV STA (17:28)
[2017-05-28] MEDS ORDERED: DILAUDID 2 MG INJECTION ONE (17:31)
--- NOTE | 2017-05-28 22:23 | XRAY ---
Indication: Lower abdominal pain and diarrhea. Multiple contiguous axial images obtained through the abdomen and pelvis using oral contrast only as ordered. Comparison: None Lung bases demonstrates right basilar subsegmental atelectasis/scarring and calcified granulomas. No infiltrate or effusion. Heart is not enlarged. Contrasted stomach and bowel loops appear nonobstructed. There is moderate wall thickening involving the splenic flexure of the colon and descending colon with mild stranding favoring colitis. Tiny left colic gutter free fluid. No walled off fluid collection or free air. Normal appendix. Diffuse fatty liver. Remaining liver, gallbladder, pancreas, spleen, adrenal glands, kidneys, ureters, bladder, and aorta appear unremarkable for noncontrast exam. Osseous structures intact with minimal degenerative spondylosis. Impression: 1. CT findings as detailed favoring left hemicolon colitis. Tiny free fluid but no walled off fluid collection or free air. 2. Fatty liver. CTDI 23.68
[2017-05-29] MEDS ORDERED: TROUGH DRUG LEVELS IJ ONE (09:30)
== END 2017-05-28 17:45 | DRG 603 ==
LOC: ED 12:06 → MED SURG 15:49
PROVIDERS: ADMIT Family Medicine; ATTEND Family Medicine
DX: L03.211 Cellulitis of face (principal); L03.221 Cellulitis of neck; R10.9 Unspecified abdominal pain; K02.9 Dental caries, unspecified; R00.0 Tachycardia, unspecified; E10.42 Type 1 diabetes mellitus with diabetic polyneuropathy; N18.9 Chronic kidney disease, unspecified; R33.9 Retention of urine, unspecified; Z72.0 Tobacco use; K21.9 Gastro-esophageal reflux disease without esophagitis; F41.8 Other specified anxiety disorders
CPT/HCPCS: 36000; 36415; 70490; 74176; 80048; 80053; 81002; 82947; 82962; 83605; 85025; 87040; 87493; 94760; 96365; 96374; 99285; J0696; J1170; J1200; J1650; J1885; J2405; J2543; J3010; J3370; A9270-GY

== ENCOUNTER 2017-09-10 17:10 | Observation (INO) | payer BC ==
--- NOTE | 2017-09-10 17:28 | ERPHSYRPT ---
- History of Present Illness Time Seen by Provider: 09/10/17 17:27 Source: patient, family Exam Limitations: no limitations Patient Subjective Stated Complaint: Pt states "I have been fighting my sugar for the past couple of days and now my chest is hurting." Triage Nursing Assessment: Pt alert and oriented X 3, skin pwd Pt ambulates with an upright steady gait assisted with a cane. Pt able to speak in clear full sentences. Pt in no apparent distress. Physician History: The patient is a 42-year-old male with his complaining of elevated blood glucose levels at home for the past 2 days. The meter has been reading "high". This has happened several times in the past. He has been giving himself an extra 90 units of regular insulin daily without having the blood glucose come down significantly. When he is unable to bring his blood glucose down, he is placed in the hospital for fluids. Also since noon today he has had chest pressure on the left side. He had a heart catheterization 1 month ago with 30% blockage of one vessel. He denies nausea or vomiting. He's had extra urine output and thinks he may be dehydrated. His past medical history is significant for diabetes type 2, hypertension, renal disease, and benign tachycardia. Timing/Duration: day(s) (2), gradual onset Severity: severe Modifying Factors: Improves With: medication Associated Symptoms: chest pain Allergies/Adverse Reactions: egg Allergy (Verified 11/22/16 12:06) metoprolol Adverse Reaction (Intermediate, Verified 09/10/17 17:24) blood pressure bottoms out to fast Home Medications: Metformin HCl 850 mg [Glucophage 850 MG] 850 mg PO TID 03/21/14 [History] Venlafaxine HCl ER 75 mg [Effexor XR 75 MG] 225 mg PO HS 03/21/14 [History ] Amitriptyline HCl 25 mg [Elavil 25 mg] 150 mg PO QHS 05/31/14 [History] Insulin Lispro [Humalog] 100 unit SQ ACHS PRN 10/16/16 [History] Insulin Degludec [Tresiba Flextouch U-100] 54 unit SQ DAILY 11/22/16 [History] Carvedilol [Carvedilol] 6.25 mg PO BID 09/10/17 [History] Clonidine HCl 0.1 mg [Catapres 0.1 MG] 0.1 mg PO BID 09/10/17 [History] Lurasidone HCl [Latuda] 120 mg PO HS 09/10/17 [History] Hx Tetanus, Diphtheria Vaccination/Date Given: Yes Hx Influenza Vaccination/Date Given: No Hx Pneumococcal Vaccination/Date Given: No Immunizations Up to Date: Yes - Review of Systems Constitutional: No Fever, No Chills Eyes: No Symptoms Ears, Nose, & Throat: No Symptoms Respiratory: No Cough, No Dyspnea Cardiac: Chest Pain Abdominal/Gastrointestinal: No Abdominal Pain, No Nausea, No Vomiting, No Diarrhea Genitourinary Symptoms: No Dysuria Musculoskeletal: No Back Pain, No Neck Pain Skin: No Rash Neurological: No Dizziness, No Focal Weakness, No Sensory Changes Psychological: No Symptoms Endocrine: No Symptoms Hematologic/Lymphatic: No Symptoms Immunological/Allergic: No Symptoms All Other Systems: Reviewed and Negative - Past Medical History Pertinent Past Medical History: Yes Neurological History: Peripheral Neuropathy, Stroke ENT History: No Pertinent History Cardiac History: Hypertension Respiratory History: No Pertinent History Endocrine Medical History: Diabetes Type II Musculoskeletal History: Other GI Medical History: GERD History: No Pertinent History Psycho-Social History: Anxiety, Depression Male Reproductive Disorders: Other Other Medical History: CVA 2003.2003, impotence, PINCHED NERVES IN BACK, 2014 - Past Surgical History Past Surgical History: Yes Neuro Surgical History: No Pertinent History Cardiac: No Pertinent History Respiratory: No Pertinent History Gastrointestinal: No Pertinent History Genitourinary: No Pertinent History Musculoskeletal: No Pertinent History Male Surgical History: No Pertinent History Other Surgical History: heart cath - Social History Smoking Status: Never smoker Exposure to second hand smoke: No Alcohol Use: None Drug Use: none Patient Lives Alone: No Significant Family History: diabetes, hypertension - Nursing Vital Signs Nursing Vital Signs: Initial Vital Signs Temperature 99.5 F 09/10/17 17:14 Pulse Rate 116 H 09/10/17 17:14 Respiratory Rate 18 09/10/17 17:14 Blood Pressure 146/105 09/10/17 17:14 O2 Sat by Pulse Oximetry 97 09/10/17 17:14 Pain Scale Pain Intensity 2 - Physical Exam General Appearance: no apparent distress, alert Eye Exam: PERRL/EOMI, eyes nml inspection Ears, Nose, Throat Exam: normal ENT inspection, TMs normal, pharynx normal, moist mucous membranes Neck Exam: normal inspection, non-tender, supple, full range of motion Respiratory Exam: normal breath sounds, lungs clear, No respiratory distress Cardiovascular Exam: tachycardia Gastrointestinal/Abdomen Exam: soft, normal bowel sounds, No tenderness, No mass Rectal Exam: not done Back Exam: normal inspection, normal range of motion, No CVA tenderness, No vertebral tenderness Extremity Exam: normal inspection, normal range of motion, pelvis stable Neurologic Exam: alert, oriented x 3, cooperative, normal mood/affect, nml cerebellar function, nml station & gait, sensation nml, No motor deficits Skin Exam: normal color, warm, dry, No rash Lymphatic Exam: No adenopathy SpO2 Interpretation: normal SpO2: 97 Oxygen Delivery: Room Air - Course EKG Interpreted by Me: RATE, Sinus Tach, NORMAL AXIS, NORMAL QRS, NORMAL ST-T - Radiology Exams Chest X-ray Interpretation: Interpreted by me, Negative Ordered Tests: Active Orders 24 hr Category Date Time Status Accucheck STAT Care 09/10/17 17:29 Active EKG-ER Only STAT Care 09/10/17 17:29 Active IV Insertion STAT Care 09/10/17 17:29 Active CHEST 2 VIEWS (PA AND LAT) Stat Exams 09/10/17 18:30 Taken CBC W DIFF Stat Lab 09/10/17 17:20 Completed CMP Stat Lab 09/10/17 17:20 Completed ETHYL ALCOHOL Stat Lab 09/10/17 17:20 Completed Lactic Acid Urgent Lab 09/10/17 17:37 Results MAGNESIUM Stat Lab 09/10/17 17:20 Completed Manual Differential NC Stat Lab 09/10/17 17:20 Completed TROPONIN Q3H Lab 09/10/17 17:20 Completed TROPONIN Q3H Lab 09/10/17 20:30 Ordered TROPONIN Q3H Lab 09/10/17 23:30 Ordered TROPONIN Q3H Lab 09/11/17 02:30 Ordered TROPONIN Q3H Lab 09/11/17 05:30 Ordered UA W/RFX UR CULTURE Stat Lab 09/10/17 18:17 Completed Medication Summary Discontinued Medications Generic Name Dose Route Start Last Admin Trade Name Freq PRN Reason Stop Dose Admin Sodium Chloride 1,000 mls @ 999 mls/hr 09/10/17 17:29 09/10/17 17:33 Sodium Chloride 0.9% 1000 Ml IV 09/10/17 18:29 999 mls/hr .Q1H1M STA Administration Sodium Chloride Confirm 09/10/17 17:31 Sodium Chloride 0.9% 1000 Ml Administered 09/10/17 17:32 Dose 1,000 mls @ ud .ROUTE .STK-MED ONE Lab/Rad Data: Laboratory Result Diagrams 09/10/17 17:20 09/10/17 17:20 Laboratory Results 09/10/17 09/10/17 09/10/17 Range/Units 18:17 17:37 17:20 WBC (4.0-10.5) K/mm3 RBC (4.1-5.6) M/mm3 Hgb (12.5-18.0) gm/dl Hct (42-50) % MCV (78-100) fl MCH (26-32) pg MCHC (32-36) g/dl RDW (11.5-14.0) % Plt Count (150-450) K/mm3 MPV (6-9.5) fl Absolute Granulocytes (1.4-6.9) Sodium (137-145) mmol/L Potassium (3.5-5.1) mmol/L Chloride (98-107) mmol/L Carbon Dioxide (22-30) mmol/L Anion Gap (5-15) MEQ/L BUN (9-20) mg/dL Creatinine (0.66-1.25) mg/dL Estimated GFR ML/MIN Glucose (74-106) mg/dL Lactic Acid 5.1 H (0.4-2.0) Calcium (8.4-10.2) mg/dL Magnesium (1.6-2.3) mg/dL Total Bilirubin (0.2-1.3) mg/dL AST (17-59) U/L ALT (0-50) U/L Alkaline Phosphatase (38-126) U/L Troponin I < 0.012 (0.000-0.034) ng/mL Serum Total Protein (6.3-8.2) g/dL Albumin (3.5-5.0) g/dL Ur Collection Type CLEAN CATCH Urine Color YELLOW (YELLOW) Urine Appearance CLEAR (CLEAR) Urine pH 6.0 (5-6) Ur Specific [place] 1.010 (1.005-1.025) Urine Protein NEGATIVE (Negative) Urine Ketones NEGATIVE (NEGATIVE) Urine Blood NEGATIVE (0-5) Edgar/ul Urine Nitrite NEGATIVE (NEGATIVE) Urine Bilirubin NEGATIVE (NEGATIVE) Urine Urobilinogen NORMAL (0-1) mg/dL Ur Leukocyte Esterase NEGATIVE (NEGATIVE) Urine Culture Reflexed NO (NO) Urine Glucose 1000 (NEGATIVE) mg/dL Ethyl Alcohol (0-10) mg/dL Specimen Received 09/10/17 1817 09/10/17 09/10/17 Range/Units 17:20 17:20 WBC 9.1 (4.0-10.5) K/mm3 RBC 5.15 (4.1-5.6) M/mm3 Hgb 15.9 (12.5-18.0) gm/dl Hct 45.0 (42-50) % MCV 87.4 (78-100) fl MCH 30.9 (26-32) pg MCHC 35.3 (32-36) g/dl RDW 12.7 (11.5-14.0) % Plt Count 266 (150-450) K/mm3 MPV 10.0 H (6-9.5) fl Absolute Granulocytes 5.76 (1.4-6.9) Sodium 133 L (137-145) mmol/L Potassium 4.7 (3.5-5.1) mmol/L Chloride 94 L (98-107) mmol/L Carbon Dioxide 24 (22-30) mmol/L Anion Gap 19.4 H (5-15) MEQ/L BUN 14 (9-20) mg/dL Creatinine 1.20 (0.66-1.25) mg/dL Estimated GFR > 60.0 ML/MIN Glucose 652 H* (74-106) mg/dL Lactic Acid (0.4-2.0) Calcium 9.7 (8.4-10.2) mg/dL Magnesium 1.9 (1.6-2.3) mg/dL Total Bilirubin 0.60 (0.2-1.3) mg/dL AST 31 (17-59) U/L ALT 45 (0-50) U/L Alkaline Phosphatase 129 H (38-126) U/L Troponin I (0.000-0.034) ng/mL Serum Total Protein 7.8 (6.3-8.2) g/dL Albumin 4.4 (3.5-5.0) g/dL Ur Collection Type Urine Color (YELLOW) Urine Appearance (CLEAR) Urine pH (5-6) Ur Specific [place] (1.005-1.025) Urine Protein (Negative) Urine Ketones (NEGATIVE) Urine Blood (0-5) Edgar/ul Urine Nitrite (NEGATIVE) Urine Bilirubin (NEGATIVE) Urine Urobilinogen (0-1) mg/dL Ur Leukocyte Esterase (NEGATIVE) Urine Culture Reflexed (NO) Urine Glucose (NEGATIVE) mg/dL Ethyl Alcohol < 10 (0-10) mg/dL Specimen Received - Progress Progress: improved Discussed with : Sharita (for Dr Frias) Counseled pt/family regarding: lab results, diagnosis, rad results - Departure Time of Disposition: 18:40 Departure Disposition: Observation (Per Dr Sheriff for Dr Frias) Clinical Impression: Hyperglycemia due to type 2 diabetes mellitus Condition: Stable Critical Care Time: No Referrals: ARY FRIAS [Primary Care Provider] -
[2017-09-10] MEDS ORDERED: Sodium Chloride 0.9% 1000 ML 1,000 ML IV STA ×2 (17:29→19:46)
[2017-09-10] MEDS ORDERED: Sodium Chloride 0.9% 1000 ML 1,000 ML ONE (17:31)
[2017-09-10 17:43] LABS: Lactic Acid 5.1 (0.4-2.0)
[2017-09-10 17:48] LABS: Granulocyte Absolute (ANC) 5.76 (1.4-6.9); Hemoglobin 15.9 gm/dl (12.5-18.0); Mean Cell Volume 87.4 fl (78-100); Mean Corpuscular Hemoglobin 30.9 pg (26-32); Mean Corpuscular Hgb Concent. 35.3 g/dl (32-36); Platelet Count 266 K/mm3 (150-450); Red Blood Count 5.15 M/mm3 (4.1-5.6); Red Cell Distribution Width 12.7 % (11.5-14.0); White Blood Count 9.1 K/mm3 (4.0-10.5)
[2017-09-10 18:07] LABS: ALBUMIN 4.4 g/dL (3.5-5.0); ALKALINE PHOSPHATASE 129 U/L (38-126); ANION GAP 19.4 MEQ/L (5-15); BLOOD UREA NITROGEN 14 mg/dL (9-20); CHLORIDE 94 mmol/L (98-107); Calcium 9.7 mg/dL (8.4-10.2); Carbon Dioxide 24 mmol/L (22-30); Potassium 4.7 mmol/L (3.5-5.1); SGOT/AST 31 U/L (17-59); SODIUM 133 mmol/L (137-145); Total Protein 7.8 g/dL (6.3-8.2)
[2017-09-10 18:13] LABS: SGPT/ALT 45 U/L (0-50)
[2017-09-10 18:23] LABS: ETHYL ALCOHOL < 10 mg/dL (0-10); Glucose 652 mg/dL (74-106)
[2017-09-10 18:25] LABS: Appearance CLEAR (CLEAR)
[2017-09-10 18:26] LABS: Bilirubin NEGATIVE (NEGATIVE); Blood NEGATIVE Ery/ul (0-5); Glucose 1000 mg/dL (NEGATIVE); Ketones NEGATIVE (NEGATIVE); Leukocyte Esterase NEGATIVE (NEGATIVE); Nitrite NEGATIVE (NEGATIVE); Protein,Urine Dip NEGATIVE (Negative); Urobilinogen NORMAL mg/dL (0-1)
[2017-09-10 18:42] LABS: BAND 3 % (0.0-2.0); Eosinophil 8 % (0.00-3.0); Lymphocytes 30 % (24-44); Monocyte 8 % (0.0-12.0); Neutrophils 51 % (36.-66.); Platelet Estimate NORMAL (NORMAL); Total Cells Counted 100
[2017-09-10] MEDS ORDERED: Zofran 4 MG/2 ML VIAL IV PRN (19:46)
[2017-09-10] MEDS ORDERED: Sodium Chloride 0.9% 1000 ML 1,000 ML IV SCH (19:46)
[2017-09-10] MEDS ORDERED: TYLENOL 325 MG PO PRN (19:46)
[2017-09-10] MEDS: NovoLIN R SQ PRN (20:04)
[2017-09-10] MEDS ORDERED: Coreg 6.25 MG PO SCH (22:00)
[2017-09-10] MEDS ORDERED: Effexor XR 75 MG PO SCH (22:00)
[2017-09-10] MEDS ORDERED: Catapres 0.1 MG PO SCH (22:00)
--- NOTE | 2017-09-10 22:22 | XRAY ---
Indication: Left chest and left shoulder pain. Comparison: April 26, 2017. PA/lateral chest remains underinflated and clear with incidental calcified granulomas. Heart and mediastinal structures within normal limits. Bony thorax intact. Impression: Stable nonacute underinflated chest. Again evidence for old granulomatous disease.
[2017-09-10] MEDS: SODIUM CHLORIDE 0.45% W/ 20 mEq KCL 1,000 ML IV SCH (22:33)
[2017-09-11] MEDS: SODIUM CHLORIDE 0.45% W/ 20 mEq KCL 1,000 ML IV SCH ×2 (03:32→07:48)
[2017-09-11] MEDS: NovoLIN R SQ PRN ×2 (04:28→07:49)
[2017-09-11 06:25] LABS: Granulocyte Absolute (ANC) 4.55 (1.4-6.9); Hematocrit 39.8 % (42-50); Hemoglobin 14.1 gm/dl (12.5-18.0); Mean Cell Volume 87.7 fl (78-100); Mean Corpuscular Hemoglobin 31.1 pg (26-32); Mean Corpuscular Hgb Concent. 35.4 g/dl (32-36); Mean Platelet Volume 9.6 fl (6-9.5); Platelet Count 228 K/mm3 (150-450); Red Blood Count 4.54 M/mm3 (4.1-5.6); Red Cell Distribution Width 12.6 % (11.5-14.0); White Blood Count 8.6 K/mm3 (4.0-10.5)
[2017-09-11 06:39] LABS: ANION GAP 12.4 MEQ/L (5-15); BLOOD UREA NITROGEN 12 mg/dL (9-20); CHLORIDE 102 mmol/L (98-107); Calcium 8.5 mg/dL (8.4-10.2); Carbon Dioxide 25 mmol/L (22-30); Creatinine 1 1.01 mg/dL (0.66-1.25); Glucose 266 mg/dL (74-106); Potassium 4.4 mmol/L (3.5-5.1); SODIUM 135 mmol/L (137-145)
[2017-09-11 07:10] LABS: Lymphocytes 47 % (24-44); Monocyte 1 % (0.0-12.0); Neutrophils 52 % (36.-66.); Platelet Estimate NORMAL (NORMAL); Total Cells Counted 100
[2017-09-11 07:16] VITALS: PULSE 83
[2017-09-11 07:52] VITALS: BP 127/90; O2SAT 96
--- NOTE | 2017-09-16 07:31 | SSS ---
DISCHARGE DIAGNOSES: 1) DIABETES MELLITUS TYPE 2 INSULIN CONTROLLED, OUT OF CONTROL. 2) LACTIC ACIDOSIS. HISTORY: The patient is a 42 year-old white male who reports that over the past couple of weeks he has been having trouble with sugars being higher. He had some chest tightness as well and presented himself to the emergency room and was found to have a sugar above 600. The patient reports he has had several episodes of this in the past and when he has this happen he cannot get ahead of it without coming in for IV fluids. The patient was therefore admitted to the hospital for IV fluids and regulation of his sugars. PAST MEDICAL/SURGICAL HISTORY: Otherwise significant for diabetic neuropathy, hypertension, gastroesophageal reflux disease, anxiety and depression. HOME MEDICATIONS: His current medications are Glucophage 850 mg t.i.d., Effexor 75 mg tablet 225 mg at night, Elavil 150 mg at night, Humalog insulin on sliding scale coverage, Tresiba 54 units daily, carvedilol 6.25 mg b.i.d., Catapres 0.1 mg b.i.d., Latuda 120 mg at night. ALLERGIES: METOPROLOL. PHYSICAL EXAMINATION: Revealed a well nourished, well developed 42 year-old white male patient currently in no distress. His vital sign showed a temperature 99.5F in the emergency room with a pulse of 116, respiratory rate 18, blood pressure 146/105. O2 saturation 97% on room air. HEENT: Normocephalic, atraumatic. Pupils equal round reactive to light. Extraocular movements intact. Oropharynx is dry. NECK: Supple without lymphadenopathy, thyromegaly or JVD. CHEST: Clear to auscultation with good air movement bilaterally. HEART: Regular rate and rhythm without murmurs, rubs or gallops. ABDOMEN: Soft, nontender, nondistended without palpable masses. EXTREMITIES: Without clubbing, cyanosis or edema. NEUROLOGIC: The patient is alert and oriented x3. No focal deficits. LAB DATA AND TESTS: On admission to the emergency room showed lactic acid 5.1, glucose 652, BUN 14, creatinine 1.2, sodium 133, potassium 4.7. Bicarb was normal at 24. Liver enzymes were normal. ETOH was less than 10. CBC was normal with white blood cell count 9,100 with 3 bands, 51 polys. Troponin less than 0.012. UA with specific gravity 1.010, glucose 1,000 otherwise normal. Repeat lactic acid after 2 liters of fluid was down to 1.8. HOSPITAL COURSE: The patient was admitted to the ICU with sliding scale coverage on high dose insulin. By the morning of 09/11/2017, the patient was feeling good. He was wishing to go home. His sugar was less than 275. It was felt at this time that the patient was able to return home on his usual medical regimen to follow up with his electroneurodiagnostic technologist and family doctor within the next week or so and to return if he had any further problems in the interim.
== END 2017-09-11 08:39 | disposition home or self-care (01) ==
LOC: ED 17:10 → ICU 19:41 → UNDOADMOB 19:41 → UNDODISOB 09-11 08:39
PROVIDERS: ADMIT Family Medicine; ATTEND Family Medicine
DX: E11.65 Type 2 diabetes mellitus with hyperglycemia (principal); E11.40 Type 2 diabetes mellitus with diabetic neuropathy, unspecified; Z79.4 Long term (current) use of insulin; E87.2 Acidosis; R07.89 Other chest pain; I10 Essential (primary) hypertension; K21.9 Gastro-esophageal reflux disease without esophagitis; F41.8 Other specified anxiety disorders; Z79.899 Other long term (current) drug therapy
CPT/HCPCS: 36000; 36415; 71046; 80048; 80053; 80307; 81002; 82962; 83605; 83735; 84484; 85025; 93005; 93268; 96360; 99285; A9270-GY; G0378; G0480

== ENCOUNTER 2017-11-13 17:38 | Observation (INO) | payer BC ==
[2017-11-13] MEDS ORDERED: Zofran 4 MG/2 ML VIAL IV ONE (18:10)
--- NOTE | 2017-11-13 18:10 | ERPHSYRPT ---
- History of Present Illness Time Seen by Provider: 11/13/17 18:04 Source: patient Exam Limitations: no limitations Physician History: The patient is a 42-year-old male with his complaining that his blood glucose levels have been up for the last 2 days. Today it was reading high on his meter. He is been taking extra insulin but it has not brought it down. He also complains of the sudden onset of left-sided chest pain about 2 PM or 4 hours ago. The pain is described as pressure. He has sharp pain radiating into his left neck. He denies being short of breath. He is nauseated but without vomiting. He was seen in this ER by me on September 10, 2017 for high blood glucose and chest pain. He was admitted at that time. 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 He had a heart catheterization about 2 months ago with 30% blockage of one vessel. His past medical history significant for diabetes type 2, hypertension, renal disease, and benign tachycardia. Timing/Duration: today, hour(s) (4), sudden Activities at Onset: none Quality: pressure Location: substernal Chest Pain Radiation: neck Severity of Pain-Max: moderate Severity of Pain-Current: moderate Modifying Factors: Improves With: nothing Nitro Today/Relief: no nitro taken today Aspirin Treatment Today: 81 mg x 4, provided by ED Associated Symptoms: nausea, chest pain, No vomiting, No shortness of breath, No diaphoresis Prior Chest Pain/Cardiac Workup: cardiac cath, recently seen/treated, recent hospitalization Allergies/Adverse Reactions: egg Allergy (Verified 11/13/17 18:05) metoprolol Adverse Reaction (Intermediate, Verified 11/13/17 18:05) blood pressure bottoms out to fast Home Medications: Metformin HCl 850 mg [Glucophage 850 MG] 850 mg PO TID 03/21/14 [History] Venlafaxine HCl ER 75 mg [Effexor XR 75 MG] 225 mg PO HS 03/21/14 [History ] Amitriptyline HCl 25 mg [Elavil 25 mg] 150 mg PO QHS 05/31/14 [History] Insulin Lispro [Humalog] 100 unit SQ ACHS PRN 10/16/16 [History] Insulin Degludec [Tresiba Flextouch U-100] 54 unit SQ DAILY 11/22/16 [History] Carvedilol 6.25 mg PO BID 09/10/17 [History] Clonidine HCl 0.1 mg [Catapres 0.1 MG] 0.1 mg PO BID 09/10/17 [History] Lurasidone HCl [Latuda] 120 mg PO HS 09/10/17 [History] Hx Tetanus, Diphtheria Vaccination/Date Given: Yes Hx Influenza Vaccination/Date Given: No Hx Pneumococcal Vaccination/Date Given: No - Review of Systems Constitutional: No Fever, No Chills Eyes: No Symptoms Ears, Nose, & Throat: No Symptoms Respiratory: No Cough, No Dyspnea Cardiac: Chest Pain, No Edema, No Syncope Abdominal/Gastrointestinal: Nausea, No Abdominal Pain, No Vomiting, No Diarrhea Genitourinary Symptoms: No Dysuria Musculoskeletal: No Back Pain, No Neck Pain Skin: No Rash Neurological: No Dizziness, No Focal Weakness, No Sensory Changes Psychological: No Symptoms Endocrine: No Symptoms Hematologic/Lymphatic: No Symptoms Immunological/Allergic: No Symptoms All Other Systems: Reviewed and Negative - Past Medical History Pertinent Past Medical History: Yes Neurological History: Peripheral Neuropathy, Stroke, Other ENT History: No Pertinent History Cardiac History: Hypertension Respiratory History: No Pertinent History Endocrine Medical History: Diabetes Type II Musculoskeletal History: Other GI Medical History: GERD History: No Pertinent History Psycho-Social History: Anxiety, Depression Male Reproductive Disorders: Other Other Medical History: 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 DDD/back - Past Surgical History Past Surgical History: Yes Neuro Surgical History: No Pertinent History Cardiac: No Pertinent History Respiratory: No Pertinent History Gastrointestinal: No Pertinent History Genitourinary: No Pertinent History Musculoskeletal: No Pertinent History Male Surgical History: No Pertinent History Other Surgical History: heart cath - Social History Smoking Status: Never smoker Exposure to second hand smoke: No Alcohol Use: None Drug Use: none Patient Lives Alone: No Significant Family History: diabetes, hypertension - Nursing Vital Signs Nursing Vital Signs: Initial Vital Signs Temperature 98.2 F 11/13/17 17:44 Pulse Rate 110 H 11/13/17 17:44 Respiratory Rate 20 11/13/17 17:44 Blood Pressure 149/105 11/13/17 17:44 O2 Sat by Pulse Oximetry 96 11/13/17 17:44 Pain Scale Pain Intensity 6 - Physical Exam General Appearance: no apparent distress, alert Eye Exam: PERRL/EOMI, eyes nml inspection Ears, Nose, Throat Exam: normal ENT inspection, moist mucous membranes Neck Exam: normal inspection, non-tender, supple Respiratory Exam: normal breath sounds, lungs clear, No respiratory distress Cardiovascular Exam: regular rate/rhythm, normal heart sounds, No edema Gastrointestinal/Abdomen Exam: soft, No tenderness, No mass Rectal Exam: not done Back Exam: normal inspection, No CVA tenderness, No vertebral tenderness Extremity Exam: normal inspection, normal range of motion Neurologic Exam: alert, oriented x 3, cooperative, normal mood/affect, nml cerebellar function, sensation nml, No motor deficits Skin Exam: normal color, warm, dry Lymphatic Exam: No adenopathy SpO2 Interpretation: normal - Course EKG Interpreted by Me: RATE, Sinus Rhythm, NORMAL AXIS, NORMAL ST-T, Other (no change comp to EKG 09/10/17.) - Radiology Exams Chest X-ray Interpretation: Interpreted by me, Negative (comp chest 09/10/17.) Ordered Tests: Active Orders 24 hr Category Date Time Status ACCUCHECK [Accucheck] STAT Care 11/13/17 18:11 Active Clean Catch Urine Specimen STAT Care 11/13/17 18:10 Active EKG-ER Only STAT Care 11/13/17 18:10 Active IV Insertion STAT Care 11/13/17 18:10 Active CHEST 2 VIEWS (PA AND LAT) Stat Exams 11/13/17 18:10 Ordered CBC W DIFF Stat Lab 11/13/17 18:14 Completed CMP Stat Lab 11/13/17 18:14 Received Lactic Acid Stat Lab 11/13/17 18:10 Results Manual Differential NC Stat Lab 11/13/17 18:14 Completed TROPONIN Q3H Lab 11/13/17 18:14 Completed TROPONIN Q3H Lab 11/13/17 21:15 Ordered TROPONIN Q3H Lab 11/14/17 00:15 Ordered TROPONIN Q3H Lab 11/14/17 03:15 Ordered TROPONIN Q3H Lab 11/14/17 06:15 Ordered UA W/RFX UR CULTURE Stat Lab 11/13/17 18:41 Ordered Urine Triage Profile Stat Lab 11/13/17 18:41 Ordered Medication Summary Generic Name Dose Route Start Last Admin Trade Name Freq PRN Reason Stop Dose Admin Sodium Chloride 1,000 mls @ 999 mls/hr 11/13/17 18:12 11/13/17 18:27 Sodium Chloride 0.9% 1000 Ml IV 11/13/17 19:12 999 mls/hr .Q1H1M STA Administration Discontinued Medications Generic Name Dose Route Start Last Admin Trade Name Anuj PRN Reason Stop Dose Admin Aspirin 324 mg 11/13/17 18:11 11/13/17 18:26 Baby Aspirin 81 Mg Chew PO 11/13/17 18:12 243 mg STAT ONE Administration Aspirin Confirm 11/13/17 18:24 Baby Aspirin 81 Mg Chew Administered 11/13/17 18:25 Dose 81 mg .ROUTE .STK-MED ONE Sodium Chloride Confirm 11/13/17 18:24 Sodium Chloride 0.9% 1000 Ml Administered 11/13/17 18:25 Dose 1,000 mls @ ud .ROUTE .STK-MED ONE Ondansetron HCl 4 mg 11/13/17 18:10 11/13/17 18:27 Zofran 4 Mg/2 Ml Vial IV 11/13/17 18:11 4 mg STAT ONE Administration Ondansetron HCl Confirm 11/13/17 18:24 Zofran 4 Mg/2 Ml Vial Administered 11/13/17 18:25 Dose 4 mg .ROUTE .STK-MED ONE Lab/Rad Data: Laboratory Result Diagrams 11/13/17 18:14 Laboratory Results 11/13/17 11/13/17 11/13/17 Range/Units 18:14 18:14 18:10 WBC 9.6 (4.0-10.5) K/mm3 RBC 5.27 (4.1-5.6) M/mm3 Hgb 16.5 (12.5-18.0) gm/dl Hct 45.8 (42-50) % MCV 86.9 (78-100) fl MCH 31.3 (26-32) pg MCHC 36.0 (32-36) g/dl RDW 13.1 (11.5-14.0) % Plt Count 268 (150-450) K/mm3 MPV 9.6 H (6-9.5) fl Absolute Granulocytes 5.97 (1.4-6.9) Lactic Acid 4.6 H (0.4-2.0) Troponin I < 0.012 (0.000-0.034) ng/mL - Progress Progress: improved Blood Culture(s) Obtained: No Antibiotics given: No Discussed with : Sharita Will see patient in: hospital (observation) (per Dr Sheriff) Counseled pt/family regarding: lab results, diagnosis, rad results - Departure Time of Disposition: 18:58 Departure Disposition: Observation (per Dr Sheriff for Dr Frias) Clinical Impression: Chest pain, Hyperglycemia due to type 2 diabetes mellitus Condition: Stable Critical Care Time: No Referrals: ARY FRIAS [Primary Care Provider] -
[2017-11-13] MEDS ORDERED: BABY ASPIRIN 81 MG CHEW PO ONE (18:11)
[2017-11-13] MEDS ORDERED: Sodium Chloride 0.9% 1000 ML 1,000 ML IV STA (18:12)
[2017-11-13 18:18] LABS: Lactic Acid 4.6 (0.4-2.0)
[2017-11-13] MEDS ORDERED: Zofran 4 MG/2 ML VIAL ONE (18:24)
[2017-11-13] MEDS ORDERED: BABY ASPIRIN 81 MG CHEW ONE (18:24)
[2017-11-13] MEDS ORDERED: Sodium Chloride 0.9% 1000 ML 2,000 ML ONE (18:24)
[2017-11-13 18:25] LABS: Granulocyte Absolute (ANC) 5.97 (1.4-6.9); Hematocrit 45.8 % (42-50); Hemoglobin 16.5 gm/dl (12.5-18.0); Mean Cell Volume 86.9 fl (78-100); Mean Corpuscular Hemoglobin 31.3 pg (26-32); Mean Platelet Volume 9.6 fl (6-9.5); Platelet Count 268 K/mm3 (150-450); Red Blood Count 5.27 M/mm3 (4.1-5.6); Red Cell Distribution Width 13.1 % (11.5-14.0); White Blood Count 9.6 K/mm3 (4.0-10.5)
[2017-11-13 18:47] LABS: ALBUMIN 4.5 g/dL (3.5-5.0); ALKALINE PHOSPHATASE 120 U/L (38-126); ANION GAP 20.3 MEQ/L (5-15); BLOOD UREA NITROGEN 15 mg/dL (9-20); CHLORIDE 92 mmol/L (98-107); Calcium 9.6 mg/dL (8.4-10.2); Carbon Dioxide 26 mmol/L (22-30); Creatinine 1 1.15 mg/dL (0.66-1.25); Potassium 4.9 mmol/L (3.5-5.1); SGOT/AST 30 U/L (17-59); SGPT/ALT 49 U/L (0-50); SODIUM 133 mmol/L (137-145); Total Protein 7.7 g/dL (6.3-8.2)
[2017-11-13] MEDS ORDERED: NovoLIN R SQ ONE (18:50)
[2017-11-13 18:56] LABS: Glucose 619 mg/dL (74-106)
[2017-11-13] MEDS ORDERED: NovoLIN R ONE (18:56)
[2017-11-13 19:20] LABS: Appearance CLEAR (CLEAR); Bilirubin NEGATIVE (NEGATIVE); Blood NEGATIVE Ery/ul (0-5); Glucose 1000 mg/dL (NEGATIVE); Ketones SMALL (NEGATIVE); Leukocyte Esterase NEGATIVE (NEGATIVE); Nitrite NEGATIVE (NEGATIVE); Protein,Urine Dip NEGATIVE (Negative); Urobilinogen NORMAL mg/dL (0-1)
[2017-11-13 19:28] LABS: ATYPICAL LYMPHS 5 %; BAND 3 % (0.0-2.0); Eosinophil 3 % (0.00-3.0); Lymphocytes 27 % (24-44); Monocyte 7 % (0.0-12.0); Neutrophils 55 % (36.-66.); Platelet Estimate NORMAL (NORMAL); Total Cells Counted 100
[2017-11-13 19:35] LABS: Amphetamine,Urine NEGATIVE (NEGATIVE); Barbiturate,Urine NEGATIVE (NEGATIVE); Benzodiazepine,Urine NEGATIVE (NEGATIVE); Cocaine,Urine NEGATIVE (NEGATIVE); Methadone,Urine NEGATIVE (NEGATIVE); Opiate,Urine NEGATIVE (NEGATIVE); PCP,Urine NEGATIVE (NEGATIVE); THC,Urine NEGATIVE (NEGATIVE)
[2017-11-13] MEDS ORDERED: TYLENOL 325 MG PO PRN (19:42)
[2017-11-13] MEDS ORDERED: Zofran 4 MG/2 ML VIAL IV PRN (19:42)
[2017-11-13] MEDS: Sodium Chloride 0.9% 1000 ML 1,000 ML IV SCH (19:54)
[2017-11-13] MEDS: NovoLIN R SQ PRN (20:34)
--- NOTE | 2017-11-13 21:39 | XRAY ---
Indication: Chest pain. Elevated blood sugar. Comparison: September 10, 2017. PA/lateral chest remains slightly underinflated again with the right base discoid atelectasis/scarring, and a few scattered calcified granulomas. No focal infiltrate, consolidation, or large effusion. Heart is not enlarged. Bony thorax intact. Impression: Stable nonacute underinflated chest again with chronic features.
[2017-11-13 21:51] LABS: Lactic Acid 3.1 (0.4-2.0)
[2017-11-13] MEDS ORDERED: ELAVIL 25 MG PO ONE (22:33)
[2017-11-13] MEDS ORDERED: COREG 12.5 MG PO ONE (22:35)
[2017-11-13] MEDS ORDERED: Klonopin 0.5 MG PO ONE (22:36)
[2017-11-13] MEDS ORDERED: Catapres 0.1 MG PO ONE (22:36)
[2017-11-13] MEDS ORDERED: Glucophage 850 MG PO ONE (22:37)
[2017-11-13] MEDS ORDERED: ZOCOR 20MG PO ONE (22:38)
[2017-11-13] MEDS ORDERED: Effexor XR 75 MG PO ONE (22:38)
[2017-11-14] MEDS: NovoLIN R SQ PRN ×4 (00:10→12:13)
[2017-11-14 04:18] LABS: ANION GAP 13.1 MEQ/L (5-15); BLOOD UREA NITROGEN 13 mg/dL (9-20); CHLORIDE 98 mmol/L (98-107); Carbon Dioxide 31 mmol/L (22-30); Creatinine 1 1.07 mg/dL (0.66-1.25); Glucose 282 mg/dL (74-106); Potassium 4.4 mmol/L (3.5-5.1); SODIUM 137 mmol/L (137-145)
[2017-11-14 04:40] LABS: BASOPHIL % 0.5 % (0.0-0.4); Basophil (Absolute #) 0.05 (0-0.4); Eosinophil % 2.3 % (0.00-5.0); Eosinophil (Absolute #) 0.23 (0-0.5); Granulocyte Absolute (ANC) 4.88 (1.4-6.9); Hematocrit 41.4 % (42-50); Hemoglobin 14.7 gm/dl (12.5-18.0); Lymphocyte (Absolute #) 3.87 (1.0-4.6); Lymphocytes % 38.8 % (24.0-44.0); Mean Cell Volume 87.3 fl (78-100); Mean Corpuscular Hgb Concent. 35.5 g/dl (32-36); Mean Platelet Volume 9.6 fl (6-9.5); Monocyte (Absolute #) 0.94 (0.0-1.3); Monocytes % 9.4 % (0.0-12.0); Platelet Count 231 K/mm3 (150-450); Red Blood Count 4.74 M/mm3 (4.1-5.6); Red Cell Distribution Width 13.3 % (11.5-14.0)
[2017-11-14] MEDS: Sodium Chloride 0.9% 1000 ML 1,000 ML IV SCH (05:50)
[2017-11-14 07:36] VITALS: PULSE 84
[2017-11-14 11:29] VITALS: BP 126/80; O2SAT 96
[2017-11-14] MEDS ORDERED: NovoLOG Insulin SQ PRN (11:58)
[2017-11-14] MEDS ORDERED: Lantus Insulin SQ SCH (12:15)
[2017-11-14] MEDS ORDERED: Catapres 0.1 MG PO SCH (12:15)
[2017-11-14] MEDS ORDERED: MEDICATION INTERVENTION MC SCH (12:15)
[2017-11-14] MEDS ORDERED: Klonopin 0.5 MG PO SCH (15:00)
[2017-11-14] MEDS ORDERED: Glucophage 850 MG PO SCH (17:00)
[2017-11-14] MEDS ORDERED: ZOCOR 20MG PO SCH (22:00)
[2017-11-14] MEDS ORDERED: NON-FORMULARY ITEM (Pravastatin Sodium [Pravastatin Sodium] 20 MG) PO SCH (22:00)
[2017-11-14] MEDS ORDERED: Effexor XR 75 MG PO SCH (22:00)
[2017-11-14] MEDS ORDERED: ELAVIL 25 MG PO SCH (22:00)
[2017-11-14] MEDS ORDERED: LURASIDONE HCL PO SCH (22:00)
[2017-11-14] MEDS ORDERED: Coreg 6.25 MG PO SCH (22:00)
[2017-11-15] MEDS ORDERED: INSULIN DEGLUDEC 55 UNIT SQ SCH (10:00)
[2017-11-15] MEDS ORDERED: ECOTRIN 81 MG PO SCH (10:00)
[2017-11-15] MEDS ORDERED: NON-FORMULARY ITEM (Aspirin [Aspirin] 81 MG) PO SCH (10:00)
--- NOTE | 2017-11-18 09:32 | SSS ---
DISCHARGE DIAGNOSES: 1) DIABETES OUT OF CONTROL. 2) CHEST PAIN. HISTORY: The patient is a 42 year-old white male patient who has admissions roughly twice a year for diabetes out of control. The patient had noted his blood sugar to be high over the past two days and the last reading was unreadable due to being elevated. He therefore presented himself to the emergency room at which time he also complained of some sharp pain on the left side of his chest radiating to his neck. The patient is noted to previously had heart cath fairly recently which showed blockage of only 30%. PAST MEDICAL HISTORY: Significant otherwise for diabetes mellitus type 2, depression, mild coronary artery disease. He has had peripheral neuropathy. Apparently he has previously also had CVA. Pinched nerves in his back. MEDICATIONS: His home medications currently include metformin 850 mg t.i.d., Effexor 75 mg tablets 220 mg at night and amitriptyline 150 mg at night, 100 mg Humalog subcu a.c. and h.s., Tresiba 54 mg daily, carvedilol 6.25 mg b.i.d., clonidine 0.1 mg b.i.d., Latuda 120 mg at night. ALLERGIES: METOPROLOL CAUSING HIS BLOOD PRESSURE TO BE LOW. PHYSICAL EXAMINATION: The patient's vital signs on admission showed his temperature 98.2F, pulse 110, respiratory rate 20, blood pressure 149/105. O2 saturation 96%. HEENT: Normocephalic, atraumatic. Pupils equal round reactive to light. Extraocular movements intact. Oropharynx is pink and moist. NECK: Supple without lymphadenopathy, thyromegaly or JVD. CHEST: Clear to auscultation with good air movement bilaterally. HEART: Regular rate and rhythm without murmurs, rubs or gallops. ABDOMEN: Soft. No palpable masses. EXTREMITIES: Without clubbing, cyanosis or edema. NEUROLOGIC: The patient is alert and oriented x3 with no focal deficits noted. LAB DATA AND TESTS: Labs in the emergency room showed UA with a specific gravity of 1.010 and had greater 1,000 glucose and small ketones. His troponin was less than 0.012. His initial lactic acid was high at 4.6. His glucose was measured at 619, BUN 15, creatinine 1.15. Sodium slightly low at 133. Potassium 4.9. Electrolytes otherwise normal. Liver enzymes normal. White blood cell count 9,600, hemoglobin 16.5, PLT count 268,000. His urine drug screen was negative. HOSPITAL COURSE: The patient was admitted to the medicine [facility] on telemetry and serial enzymes were essentially all negative being less than 0.012 on troponins. His sugars were under much better control after IV fluid hydration and his morning sugar was less than 300. His lactic acid was down to 1.8. It was obvious that the patient was not septic. His CO2 was actually slightly high by the next morning at 31. Sodium 137, potassium 4.4. The patient was feeling good, smiling and was requesting to be discharged home on the morning of 11/14/2017. We felt the patient was stable having ruled out for myocardial infarction and the sugars being much better. He was instructed to monitor his sugars carefully. The patient actually reports that he has an appointment to see his electronic engineering draftsperson actually tomorrow on 11/15/2017 as well as an appointment to see his pt escort in [place], [place] coming up in the next week or so. He was instructed also to follow up with his family doctor, Dr. Frias, here after the two specialist visits. He is to return to the hospital if he has any further problems in the interim.
== END 2017-11-14 13:00 | disposition home or self-care (01) ==
LOC: ED 17:38 → MED SURG 19:35
PROVIDERS: ADMIT Family Medicine; ATTEND Family Medicine
DX: E11.65 Type 2 diabetes mellitus with hyperglycemia (principal); Z79.4 Long term (current) use of insulin; R07.9 Chest pain, unspecified; F32.9 Major depressive disorder, single episode, unspecified; I25.10 Atherosclerotic heart disease of native coronary artery without angina pectoris; G62.9 Polyneuropathy, unspecified; Z86.73 Personal history of transient ischemic attack (TIA), and cerebral infarction without residual deficits
CPT/HCPCS: 36000; 36415; 71046; 80048; 80053; 80307; 81002; 82962; 83605; 84484; 85025; 93005; 93268; 96365; 96372; 96374; 99285; J2405; A9270-GY; G0378

== ENCOUNTER 2018-03-03 16:33 | Observation (INO) | payer BC ==
[2018-03-03] MEDS ORDERED: BABY ASPIRIN 81 MG CHEW PO ONE (16:45)
[2018-03-03] MEDS ORDERED: DUONEB 0.5-3 MG/3 ml Neb IH ONE ×2 (16:47→16:57)
[2018-03-03] MEDS ORDERED: solu-MEDROL 125 MG IV ONE (16:50)
--- NOTE | 2018-03-03 16:50 | ERPHSYRPT ---
- History of Present Illness Source: patient Exam Limitations: no limitations Hx Tetanus, Diphtheria Vaccination/Date Given: Yes Hx Influenza Vaccination/Date Given: No Hx Pneumococcal Vaccination/Date Given: No <CLAUDIA NAVARRO - Last Filed: 03/03/18 18:53> <TATYANA TUBBS - Last Filed: 03/03/18 22:18> - History of Present Illness Time Seen by Provider: 03/03/18 16:48 Physician History: mild shortness of breath today, hx copd, not on home oxygen, hx tachycardia, no chest pain, recent elevated blood sugar, no injury (CLAUDIA NAVARRO) Allergies/Adverse Reactions: egg Allergy (Verified 11/13/17 18:05) metoprolol Adverse Reaction (Intermediate, Verified 11/13/17 18:05) blood pressure bottoms out to fast Home Medications: Metformin HCl 850 mg [Glucophage 850 MG] 850 mg PO TID 03/21/14 [History] Amitriptyline HCl 25 mg [Elavil 25 mg] 150 mg PO QHS 05/31/14 [History] Insulin Degludec [Tresiba Flextouch U-100] 52 unit SQ DAILY 11/22/16 [History] Lurasidone HCl [Latuda] 160 mg PO HS 09/10/17 [History] Carvedilol 6.25 mg [Coreg 6.25 MG] 25 mg PO BID 11/13/17 [History] Clonazepam 0.5 mg [Klonopin 0.5 MG] 0.5 mg PO TID 11/13/17 [History] Insulin Aspart [NovoLOG Insulin] 15 units SQ BID PRN 11/13/17 [History] Lacosamide [Vimpat] 200 mg PO BID 03/03/18 [History] Venlafaxine HCl ER 75 mg [Effexor XR 75 MG] 300 mg PO QHS 03/03/18 [ History] - Review of Systems Constitutional: No Fever Eyes: No Vision Changes Ears, Nose, & Throat: No Mouth Pain Respiratory: Dyspnea Cardiac: Palpitations, No Chest Pain Abdominal/Gastrointestinal: No Abdominal Pain, No Vomiting Genitourinary Symptoms: No Dysuria Musculoskeletal: No Back Pain Skin: No Rash Neurological: No Dizziness <CLAUDIA NAVARRO - Last Filed: 03/03/18 18:53> - Past Medical History Pertinent Past Medical History: Yes Neurological History: Peripheral Neuropathy, Stroke, Other ENT History: No Pertinent History Cardiac History: Hypertension Respiratory History: No Pertinent History Endocrine Medical History: Diabetes Type II Musculoskeletal History: Other GI Medical History: GERD History: No Pertinent History Psycho-Social History: Anxiety, Depression Male Reproductive Disorders: Other Other Medical History: CVA 2003.2004, impotence, PINCHED NERVES IN BACK, 2015. DDD/back - Past Surgical History Past Surgical History: Yes Neuro Surgical History: No Pertinent History Cardiac: No Pertinent History Respiratory: No Pertinent History Gastrointestinal: No Pertinent History Genitourinary: No Pertinent History Musculoskeletal: No Pertinent History Male Surgical History: No Pertinent History Other Surgical History: heart cath - Social History Smoking Status: Never smoker Exposure to second hand smoke: No Alcohol Use: None Drug Use: none Patient Lives Alone: No Significant Family History: diabetes, hypertension <CLAUDIA NAVARRO - Last Filed: 03/03/18 18:53> - Physical Exam General Appearance: no apparent distress Eye Exam: PERRL/EOMI Ears, Nose, Throat Exam: No nasal congestion Neck Exam: non-tender Respiratory Exam: wheezing Cardiovascular/Chest Exam: tachycardia Abdominal/Gastrointestinal Exam: soft, No tenderness Extremity Exam: No no pedal edema Neurologic Exam: alert, oriented x 3, cooperative Skin Exam: warm, dry <CLAUDIA NAVARRO - Last Filed: 03/03/18 18:53> - Physical Exam SpO2 Interpretation: normal (97%) <TATYANA TUBBS - Last Filed: 03/03/18 22:18> - Nursing Vital Signs Nursing Vital Signs: Initial Vital Signs Temperature 99.1 F 03/03/18 16:35 Pulse Rate 130 H 03/03/18 16:35 Respiratory Rate 22 03/03/18 16:35 Blood Pressure 141/105 03/03/18 16:35 O2 Sat by Pulse Oximetry 97 03/03/18 16:35 Pain Scale Pain Intensity 0 - Course Nursing assessment & vital signs reviewed: Yes EKG Interpreted by Me: RATE (121 bpm), NORMAL AXIS, Other (EKG: Sinus tachycardia, 1 21 bpm, normal axis, no acute ST or T wave changes) - Radiology Exams Chest X-ray Interpretation: Discussed w/ radiologist (stable non acute underinflated chest with chronic features) <TATYANA TUBBS - Last Filed: 03/03/18 22:18> Ordered Tests: Active Orders 24 hr Category Date Time Status Bedrest with BRP/BSC ROUTINE Activity 03/03/18 20:42 Active Accucheck Q2H Care 03/03/18 20:42 Active Accucheck STAT Care 03/03/18 19:57 Completed Call Admit Doctor for Orders ON ADMISSION Care 03/03/18 20:42 Active Code Status Order ROUTINE Care 03/03/18 20:42 Active EKG-ER Only STAT Care 03/03/18 16:45 Completed IV Care Q6H Care 03/03/18 20:42 Active IV Insertion STAT Care 03/03/18 16:[address] in Observation ROUTINE Care 03/03/18 20:42 Active Telemetry Q4H Care 03/03/18 20:42 Active Weight,Daily 0600 Care 03/03/18 20:42 Active 1800 Calorie ADA Diet 03/03/18 Breakfast Active Clear Liquid Diet 03/03/18 Breakfast Active CHEST 1 VIEW (PORTABLE) Stat Exams 03/03/18 16:59 Completed CBC W DIFF AM.LAB Lab 03/04/18 04:00 Ordered CBC W DIFF Stat Lab 03/03/18 17:30 Completed CMP AM.LAB Lab 03/04/18 04:00 Ordered CMP Stat Lab 03/03/18 17:30 Completed D-DIMER QUANTITATION Stat Lab 03/03/18 17:30 Completed PROTIME WITH INR Stat Lab 03/03/18 17:30 Completed TROPONIN Q3H Lab 03/03/18 17:30 Completed TROPONIN Q3H Lab 03/03/18 20:00 Completed TROPONIN Q3H Lab 03/03/18 23:00 Ordered TROPONIN Q3H Lab 03/04/18 02:00 Ordered TROPONIN Q3H Lab 03/04/18 05:00 Ordered UA W/RFX UR CULTURE Stat Lab 03/03/18 19:53 Completed Urine Triage Profile Stat Lab 03/03/18 18:46 Completed Peak Expiratory Flow Rate ONCE RT 03/03/18 17:04 Completed Pulse Oximetry CONTINUOUS RT 03/03/18 20:42 Active Respiratory Nebulizer STAT RT 03/03/18 16:47 Completed Respiratory Therapy Assessment DAILY RT 03/03/18 16:58 Completed Transfer Order Routine Transfer 03/03/18 Completed Medication Summary Generic Name Dose Route Start Last Admin Trade Name Anuj PRN Reason Stop Dose Admin Sodium Chloride 1,000 mls @ 150 mls/hr 03/03/18 20:42 Sodium Chloride 0.9% 1000 Ml IV 04/02/18 20:41 .Q6H40M DASHAWN Insulin Aspart 0 unit 03/03/18 20:42 03/03/18 22:15 Novolog Insulin SQ 04/02/18 20:41 15 unit UD PRN Administration HYPERGLYCEMIA Discontinued Medications Generic Name Dose Route Start Last Admin Trade Name Anuj PRN Reason Stop Dose Admin Albuterol/Ipratropium 3 ml 03/03/18 16:47 03/03/18 16:59 Duoneb 0.5-3 Mg/3 Ml Neb IH 03/03/18 16:48 3 ml STAT ONE Administration Albuterol/Ipratropium Confirm 03/03/18 16:57 Duoneb 0.5-3 Mg/3 Ml Neb Administered 03/03/18 16:58 Dose 3 ml IH .STK-MED ONE Aspirin 324 mg 03/03/18 16:45 03/03/18 17:01 Baby Aspirin 81 Mg Chew PO 03/03/18 16:46 324 mg STAT ONE Administration Aspirin Confirm 03/03/18 16:52 Baby Aspirin 81 Mg Chew Administered 03/03/18 16:53 Dose 324 mg .ROUTE .STK-MED ONE Sodium Chloride 1,000 mls @ 999 mls/hr 03/03/18 16:51 03/03/18 18:59 Sodium Chloride 0.9% 1000 Ml IV 03/03/18 17:51 Infused .Q1H1M STA Infusion Sodium Chloride Confirm 03/03/18 16:52 Sodium Chloride 0.9% 1000 Ml Administered 03/03/18 16:53 Dose 1,000 mls @ ud .ROUTE .STK-MED ONE Sodium Chloride 1,000 mls @ 999 mls/hr 03/03/18 18:52 03/03/18 19:55 Sodium Chloride 0.9% 1000 Ml IV 03/03/18 19:52 Infused .Q1H1M STA Infusion Sodium Chloride Confirm 03/03/18 18:58 Sodium Chloride 0.9% 1000 Ml Administered 03/03/18 18:59 Dose 1,000 mls @ ud .ROUTE .STK-MED ONE Sodium Chloride 1,000 mls @ 150 mls/hr 03/03/18 20:15 03/03/18 20:22 Sodium Chloride 0.9% 1000 Ml IV 04/02/18 20:14 150 mls/hr .Q6H40M DASHAWN Administration Sodium Chloride Confirm 03/03/18 20:19 Sodium Chloride 0.9% 1000 Ml Administered 03/03/18 20:20 Dose 1,000 mls @ ud .ROUTE .STK-MED ONE Insulin Human Regular 5 unit 03/03/18 17:51 03/03/18 18:01 Novolin R IV 03/03/18 17:52 5 unit STAT ONE Administration Insulin Human Regular Confirm 03/03/18 18:00 Novolin R Administered 03/03/18 18:01 Dose 5 unit .ROUTE .STK-MED ONE Insulin Human Regular 3 unit 03/03/18 18:51 03/03/18 19:00 Novolin R IV 03/03/18 18:52 3 unit STAT ONE Administration Insulin Human Regular Confirm 03/03/18 18:58 Novolin R Administered 03/03/18 18:59 Dose 3 unit .ROUTE .STK-MED ONE Insulin Human Regular 10 unit 03/03/18 20:13 03/03/18 20:25 Novolin R IV 03/03/18 20:14 10 unit STAT ONE Administration Insulin Human Regular Confirm 03/03/18 20:19 Novolin R Administered 03/03/18 20:20 Dose 10 unit .ROUTE .STK-MED ONE Methylprednisolone Sodium Succinate 125 mg 03/03/18 16:50 03/03/18 17:01 Solu-Medrol 125 Mg IV 03/03/18 16:51 125 mg STAT ONE Administration Methylprednisolone Sodium Succinate Confirm 03/03/18 16:57 Solu-Medrol 125 Mg Administered 03/03/18 16:58 Dose 125 mg .ROUTE .STK-MED ONE Lab/Rad Data: Laboratory Result Diagrams 03/03/18 17:30 03/03/18 17:30 Laboratory Results 03/03/18 03/03/18 03/03/18 Range/Units 20:00 19:53 18:46 WBC (4.0-10.5) K/mm3 RBC (4.1-5.6) M/mm3 Hgb (12.5-18.0) gm/dl Hct (42-50) % MCV (78-100) fl MCH (26-32) pg MCHC (32-36) g/dl RDW (11.5-14.0) % Plt Count (150-450) K/mm3 MPV (6-9.5) fl Gran % (36.0-66.0) % Eos # (Auto) (0-0.5) Absolute Lymphs (auto) (1.0-4.6) Absolute Monos (auto) (0.0-1.3) Lymphocytes % (24.0-44.0) % Monocytes % (0.0-12.0) % Eosinophils % (0.00-5.0) % Basophils % (0.0-0.4) % Absolute Granulocytes (1.4-6.9) Basophils # (0-0.4) PT (8.83-12.87) SECONDS INR (0.8-3.0) D-Dimer (215-500) ng/mL Sodium (137-145) mmol/L Potassium (3.5-5.1) mmol/L Chloride (98-107) mmol/L Carbon Dioxide (22-30) mmol/L Anion Gap (5-15) MEQ/L BUN (9-20) mg/dL Creatinine (0.66-1.25) mg/dL Estimated GFR ML/MIN Glucose (74-106) mg/dL Calcium (8.4-10.2) mg/dL Total Bilirubin (0.2-1.3) mg/dL AST (17-59) U/L ALT (0-50) U/L Alkaline Phosphatase (38-126) U/L Troponin I < 0.012 (0.000-0.034) ng/mL Serum Total Protein (6.3-8.2) g/dL Albumin (3.5-5.0) g/dL Urine Color STRAW (YELLOW) Urine Appearance CLEAR (CLEAR) Urine pH 6.0 (5-6) Ur Specific [place] 1.028 (1.005-1.025) Urine Protein NEGATIVE (Negative) Urine Ketones TRACE (NEGATIVE) Urine Blood NEGATIVE (0-5) Edgar/ul Urine Nitrite NEGATIVE (NEGATIVE) Urine Bilirubin NEGATIVE (NEGATIVE) Urine Urobilinogen NEGATIVE (0-1) mg/dL Ur Leukocyte Esterase NEGATIVE (NEGATIVE) Urine WBC (Auto) NONE (0-5) /HPF Urine RBC (Auto) NONE (0-2) /HPF U Epithel Cells (Auto) NONE (FEW) /HPF Urine Bacteria (Auto) NONE (NEGATIVE) /HPF Urine Culture Reflexed NO (NO) Urine Glucose >=500 (NEGATIVE) mg/dL Urine Opiates Level NEGATIVE (NEGATIVE) Ur Methadone NEGATIVE (NEGATIVE) Urine Barbiturates NEGATIVE (NEGATIVE) Ur Phencyclidine (PCP) NEGATIVE (NEGATIVE) Urine Amphetamine NEGATIVE (NEGATIVE) U Benzodiazepine Level NEGATIVE (NEGATIVE) Urine Cocaine NEGATIVE (NEGATIVE) Urine Marijuana (THC) NEGATIVE (NEGATIVE) 03/03/18 03/03/18 03/03/18 Range/Units 17:30 17:30 17:30 WBC (4.0-10.5) K/mm3 RBC (4.1-5.6) M/mm3 Hgb (12.5-18.0) gm/dl Hct (42-50) % MCV (78-100) fl MCH (26-32) pg MCHC (32-36) g/dl RDW (11.5-14.0) % Plt Count (150-450) K/mm3 MPV (6-9.5) fl Gran % (36.0-66.0) % Eos # (Auto) (0-0.5) Absolute Lymphs (auto) (1.0-4.6) Absolute Monos (auto) (0.0-1.3) Lymphocytes % (24.0-44.0) % Monocytes % (0.0-12.0) % Eosinophils % (0.00-5.0) % Basophils % (0.0-0.4) % Absolute Granulocytes (1.4-6.9) Basophils # (0-0.4) PT 13.8 H (8.83-12.87) SECONDS INR 1.18 (0.8-3.0) D-Dimer < 215 L (215-500) ng/mL Sodium 132 L (137-145) mmol/L Potassium 5.4 H (3.5-5.1) mmol/L Chloride 89 L (98-107) mmol/L Carbon Dioxide 28 (22-30) mmol/L Anion Gap 21.0 H (5-15) MEQ/L BUN 15 (9-20) mg/dL Creatinine 1.34 H (0.66-1.25) mg/dL Estimated GFR > 60.0 ML/MIN Glucose 726 H* (74-106) mg/dL Calcium 10.1 (8.4-10.2) mg/dL Total Bilirubin 0.80 (0.2-1.3) mg/dL AST 31 (17-59) U/L ALT 51 H (0-50) U/L Alkaline Phosphatase 171 H (38-126) U/L Troponin I < 0.012 (0.000-0.034) ng/mL Serum Total Protein 8.3 H (6.3-8.2) g/dL Albumin 4.9 (3.5-5.0) g/dL Urine Color (YELLOW) Urine Appearance (CLEAR) Urine pH (5-6) Ur Specific [place] (1.005-1.025) Urine Protein (Negative) Urine Ketones (NEGATIVE) Urine Blood (0-5) Edgar/ul Urine Nitrite (NEGATIVE) Urine Bilirubin (NEGATIVE) Urine Urobilinogen (0-1) mg/dL Ur Leukocyte Esterase (NEGATIVE) Urine WBC (Auto) (0-5) /HPF Urine RBC (Auto) (0-2) /HPF U Epithel Cells (Auto) (FEW) /HPF Urine Bacteria (Auto) (NEGATIVE) /HPF Urine Culture Reflexed (NO) Urine Glucose (NEGATIVE) mg/dL Urine Opiates Level (NEGATIVE) Ur Methadone (NEGATIVE) Urine Barbiturates (NEGATIVE) Ur Phencyclidine (PCP) (NEGATIVE) Urine Amphetamine (NEGATIVE) U Benzodiazepine Level (NEGATIVE) Urine Cocaine (NEGATIVE) Urine Marijuana (THC) (NEGATIVE) 03/03/18 Range/Units 17:30 WBC 10.2 (4.0-10.5) K/mm3 RBC 5.30 (4.1-5.6) M/mm3 Hgb 16.4 (12.5-18.0) gm/dl Hct 47.8 (42-50) % MCV 90.2 (78-100) fl MCH 30.9 (26-32) pg MCHC 34.3 (32-36) g/dl RDW 13.0 (11.5-14.0) % Plt Count 275 (150-450) K/mm3 MPV 9.8 H (6-9.5) fl Gran % 70.1 H (36.0-66.0) % Eos # (Auto) 0.10 (0-0.5) Absolute Lymphs (auto) 2.24 (1.0-4.6) Absolute Monos (auto) 0.67 (0.0-1.3) Lymphocytes % 21.9 L (24.0-44.0) % Monocytes % 6.6 (0.0-12.0) % Eosinophils % 1.0 (0.00-5.0) % Basophils % 0.4 (0.0-0.4) % Absolute Granulocytes 7.16 H (1.4-6.9) Basophils # 0.04 (0-0.4) PT (8.83-12.87) SECONDS INR (0.8-3.0) D-Dimer (215-500) ng/mL Sodium (137-145) mmol/L Potassium (3.5-5.1) mmol/L Chloride (98-107) mmol/L Carbon Dioxide (22-30) mmol/L Anion Gap (5-15) MEQ/L BUN (9-20) mg/dL Creatinine (0.66-1.25) mg/dL Estimated GFR ML/MIN Glucose (74-106) mg/dL Calcium (8.4-10.2) mg/dL Total Bilirubin (0.2-1.3) mg/dL AST (17-59) U/L ALT (0-50) U/L Alkaline Phosphatase (38-126) U/L Troponin I (0.000-0.034) ng/mL Serum Total Protein (6.3-8.2) g/dL Albumin (3.5-5.0) g/dL Urine Color (YELLOW) Urine Appearance (CLEAR) Urine pH (5-6) Ur Specific [place] (1.005-1.025) Urine Protein (Negative) Urine Ketones (NEGATIVE) Urine Blood (0-5) Edgar/ul Urine Nitrite (NEGATIVE) Urine Bilirubin (NEGATIVE) Urine Urobilinogen (0-1) mg/dL Ur Leukocyte Esterase (NEGATIVE) Urine WBC (Auto) (0-5) /HPF Urine RBC (Auto) (0-2) /HPF U Epithel Cells (Auto) (FEW) /HPF Urine Bacteria (Auto) (NEGATIVE) /HPF Urine Culture Reflexed (NO) Urine Glucose (NEGATIVE) mg/dL Urine Opiates Level (NEGATIVE) Ur Methadone (NEGATIVE) Urine Barbiturates (NEGATIVE) Ur Phencyclidine (PCP) (NEGATIVE) Urine Amphetamine (NEGATIVE) U Benzodiazepine Level (NEGATIVE) Urine Cocaine (NEGATIVE) Urine Marijuana (THC) (NEGATIVE) <CLAUDIA NAVARRO - Last Filed: 03/03/18 18:53> - Progress Progress: improved Air Movement: fair <TATYANA TUBBS - Last Filed: 03/03/18 22:18> - Progress Progress Note: 03/03/18 18:[address] Tubbs at 19:00 (CLAUDIA NAVARRO) 03/03/18 20:02 This is a 43-year-old white male initially seen by Dr. Navarro she arrives with complaint of mild shortness of breath today and was noted to have blood sugars of 726 patient states he's been having troubles controlling his sugars at home he has no fever no chest pain no nausea no vomiting. Past medical history includes peripheral neuropathy, CVA, high blood pressure, diabetes type 2, GERD, anxiety, depression, CVA in 2002 2003, pinched nerve in his back. Past surgical history includes heart catheter. Physical examination well-developed well-nourished white male he is alert oriented 3 pleasant and cooperative to examination Patient was tachycardic on arrival currently heart rate 100 bpm Head is atraumatic normocephalic. Eyes PERRLA EOMI fundi are unremarkable. Ears TMs gaffney intact bilaterally. Nose is clear. Throat is clear. Neck is supple. Lungs are clear. Heart regular rate and rhythm without murmur. Abdomen soft nontender nondistended positive bowel sounds. Extremities full range of motion pulse equal symmetrical 2 over 4. Neuro cranial nerves II through XII are intact DTRs symmetrical 2 over 4 [place] Coma Scale is 15. Labs chemistry sodium 132 potassium 5.4 chloride 89 bicarbonate 28 BUN 15 creatinine 1.34 glucose 726. Troponin less than 0.012 Anion gap 21. CBC White blood cell 10.2 hemoglobin 16.4 hematocrit 47.8 platelets 275./. Tox screen is negative Urinalysis specific gravity 1.028 pH 6.0 trace of ketones glucose greater than 500 Chest x-ray no acute disease process noted EKG sinus tachycardia 121 bpm normal axis no acute ST or T wave changes impression hyperglycemia Plan Dr. Navarro as ordered 2 L of normal saline. As well as 8 units him Novolin R IV, Will recheck Accu-Chek after 2 L have been infused,was him patient's Accu-Chek is 544. Will discuss case with Dr. Frias. I've discussed patient's case with Dr. Frias we will go ahead and give patient Novolin R [address] patient on normal saline [address] patient on observation with every 2 Accu-Cheks until blood sugars are less than 300 and every 4 hours with moderate sliding scale insulin coverage will place patient on monitor . 03/03/18 20:07 03/03/18 20:12 (TATYANA TUBBS) <CLAUDIA NAVARRO - Last Filed: 03/03/18 18:53> - Departure Time of Disposition: 20:13 Departure Disposition: Observation Critical Care Time: No <TATYANA TUBBS - Last Filed: 03/03/18 22:18> - Departure Clinical Impression: Hyperglycemia Condition: Fair
[2018-03-03] MEDS ORDERED: Sodium Chloride 0.9% 1000 ML 1,000 ML IV STA ×2 (16:51→18:52)
[2018-03-03] MEDS ORDERED: BABY ASPIRIN 81 MG CHEW ONE (16:52)
[2018-03-03] MEDS ORDERED: Sodium Chloride 0.9% 1000 ML 1,000 ML ONE ×3 (16:52→20:19)
[2018-03-03] MEDS ORDERED: solu-MEDROL 125 MG ONE (16:57)
--- NOTE | 2018-03-03 17:08 | XRAY ---
Indication: Short of breath. Elevated blood sugar. Comparison: November 13, 2017. Portable chest remains underinflated again with minimal right base discoid atelectasis/scarring and bilateral calcified granulomas. No focal infiltrate, consolidation, or large effusion. Heart is not enlarged. Bony thorax intact. Impression: Stable nonacute underinflated chest with chronic features.
[2018-03-03 17:26] LABS: BASOPHIL % 0.4 % (0.0-0.4); Basophil (Absolute #) 0.04 (0-0.4); Granulocyte Absolute (ANC) 7.16 (1.4-6.9); Granulocytes % 70.1 % (36.0-66.0); Hematocrit 47.8 % (42-50); Hemoglobin 16.4 gm/dl (12.5-18.0); Lymphocyte (Absolute #) 2.24 (1.0-4.6); Lymphocytes % 21.9 % (24.0-44.0); Mean Cell Volume 90.2 fl (78-100); Mean Corpuscular Hemoglobin 30.9 pg (26-32); Mean Corpuscular Hgb Concent. 34.3 g/dl (32-36); Mean Platelet Volume 9.8 fl (6-9.5); Monocyte (Absolute #) 0.67 (0.0-1.3); Monocytes % 6.6 % (0.0-12.0); Platelet Count 275 K/mm3 (150-450); White Blood Count 10.2 K/mm3 (4.0-10.5)
[2018-03-03 17:37] LABS: INR 1.18 (0.8-3.0)
[2018-03-03 17:41] LABS: ALBUMIN 4.9 g/dL (3.5-5.0); ALKALINE PHOSPHATASE 171 U/L (38-126); BLOOD UREA NITROGEN 15 mg/dL (9-20); CHLORIDE 89 mmol/L (98-107); Calcium 10.1 mg/dL (8.4-10.2); Carbon Dioxide 28 mmol/L (22-30); Creatinine 1 1.34 mg/dL (0.66-1.25); Potassium 5.4 mmol/L (3.5-5.1); SGOT/AST 31 U/L (17-59); SGPT/ALT 51 U/L (0-50); SODIUM 132 mmol/L (137-145); Total Protein 8.3 g/dL (6.3-8.2)
[2018-03-03 17:42] LABS: D-DIMER QUANTITATION < 215 ng/mL (215-500)
[2018-03-03 17:50] LABS: Glucose 726 mg/dL (74-106)
[2018-03-03] MEDS ORDERED: NovoLIN R IV ONE ×3 (17:51→20:13)
[2018-03-03] MEDS ORDERED: NovoLIN R ONE ×3 (18:00→20:19)
[2018-03-03 19:17] LABS: Amphetamine,Urine NEGATIVE (NEGATIVE); Barbiturate,Urine NEGATIVE (NEGATIVE); Benzodiazepine,Urine NEGATIVE (NEGATIVE); Cocaine,Urine NEGATIVE (NEGATIVE); Methadone,Urine NEGATIVE (NEGATIVE); Opiate,Urine NEGATIVE (NEGATIVE); PCP,Urine NEGATIVE (NEGATIVE); THC,Urine NEGATIVE (NEGATIVE)
[2018-03-03 19:18] VITALS: O2SAT 96
[2018-03-03 20:00] LABS: Appearance CLEAR (CLEAR); Bilirubin NEGATIVE (NEGATIVE); Blood NEGATIVE Ery/ul (0-5); Glucose >=500 mg/dL (NEGATIVE); Ketones TRACE (NEGATIVE); Leukocyte Esterase NEGATIVE (NEGATIVE); Nitrite NEGATIVE (NEGATIVE); Protein,Urine Dip NEGATIVE (Negative); Specific Gravity 1.028 (1.005-1.025); Urobilinogen NEGATIVE mg/dL (0-1)
[2018-03-03] MEDS ORDERED: Sodium Chloride 0.9% 1000 ML 1,000 ML IV SCH ×2 (20:15→20:42)
[2018-03-03] MEDS: NovoLOG Insulin SQ PRN (22:15)
[2018-03-03] MEDS ORDERED: NON-FORMULARY ITEM PO SCH (22:30)
[2018-03-03] MEDS ORDERED: ELAVIL 25 MG PO SCH (22:30)
[2018-03-03] MEDS ORDERED: Klonopin 0.5 MG PO SCH (22:30)
[2018-03-03] MEDS ORDERED: Effexor XR 75 MG PO SCH (22:30)
[2018-03-03] MEDS ORDERED: Catapres 0.1 MG PO SCH (22:30)
[2018-03-03] MEDS ORDERED: Coreg 6.25 MG PO SCH (22:30)
[2018-03-04] MEDS: NovoLOG Insulin SQ PRN ×4 (00:19→06:04)
[2018-03-04 05:58] LABS: ALBUMIN 3.9 g/dL (3.5-5.0); ALKALINE PHOSPHATASE 94 U/L (38-126); ANION GAP 14.3 MEQ/L (5-15); BLOOD UREA NITROGEN 16 mg/dL (9-20); CHLORIDE 100 mmol/L (98-107); Calcium 9.1 mg/dL (8.4-10.2); Carbon Dioxide 26 mmol/L (22-30); Creatinine 1 0.95 mg/dL (0.66-1.25); Glucose 286 mg/dL (74-106); Potassium 4.8 mmol/L (3.5-5.1); SGOT/AST 24 U/L (17-59); SGPT/ALT 43 U/L (0-50); SODIUM 135 mmol/L (137-145)
[2018-03-04 06:06] LABS: BASOPHIL % 0.2 % (0.0-0.4); Basophil (Absolute #) 0.02 (0-0.4); Eosinophil % 0.1 % (0.00-5.0); Eosinophil (Absolute #) 0.01 (0-0.5); Granulocyte Absolute (ANC) 10.94 (1.4-6.9); Granulocytes % 83.6 % (36.0-66.0); Hematocrit 40.1 % (42-50); Hemoglobin 14.2 gm/dl (12.5-18.0); Lymphocyte (Absolute #) 1.67 (1.0-4.6); Lymphocytes % 12.8 % (24.0-44.0); Mean Cell Volume 88.1 fl (78-100); Mean Corpuscular Hemoglobin 31.2 pg (26-32); Mean Corpuscular Hgb Concent. 35.4 g/dl (32-36); Mean Platelet Volume 9.3 fl (6-9.5); Monocyte (Absolute #) 0.43 (0.0-1.3); Monocytes % 3.3 % (0.0-12.0); Platelet Count 255 K/mm3 (150-450); Red Blood Count 4.55 M/mm3 (4.1-5.6); Red Cell Distribution Width 12.8 % (11.5-14.0); White Blood Count 13.1 K/mm3 (4.0-10.5)
[2018-03-04 06:57] VITALS: BP 116/75; PULSE 86
[2018-03-04] MEDS ORDERED: NovoLOG Insulin SQ PRN (08:10)
[2018-03-04] MEDS ORDERED: MEDICATION INTERVENTION PO SCH (08:45)
--- NOTE | 2018-03-04 08:47 | PCM.SSS ---
History of Present Illness - Chief Complaint Chief Complaint: Hyperglycemia History of Present Illness: is a 43 year old male pt of mine from [facility] with PMHx diabetes mellitus II, uncontrolled, who came to ER last night wiht BS of 726. He had some SOB of breath at home. Yesterday morning his meter just read "hi." the Blood sugar came down to 500s with IVF in the ER (and 10 units of insulin). Through the night he got SS insulin an dIVF and this morning his BS is 286. He is feeling fine. Would like to go home. Woul dlike to see a new environmental health specialist as his will not see him anymore due to missed appointments. - Review of Systems Constitutional: No Fever Respiratory: Short Of Breath Cardiac: No Chest Pain Neurological: Dizziness, Seizure (chronic) Psychological: No Anxiety, No Depression, No Suicidal Ideations, No Homicidal Ideations All Other Systems: Reviewed and Negative Medications & Allergies Home Medications: Home Medication List Metformin HCl 850 mg [Glucophage 850 MG] 850 mg PO TID 03/21/14 [History Confirmed 03/03/18] Amitriptyline HCl 25 mg [Elavil 25 mg] 150 mg PO QHS 05/31/14 [History Confirmed 03/03/18] Insulin Degludec [Tresiba Flextouch U-100] 52 unit SQ DAILY 11/22/16 [History Confirmed 03/03/18] Aspirin 81 mg PO DAILY #1 tablet 04/27/17 [Rx Confirmed 03/03/18] Pravastatin Sodium 20 mg PO HS #30 tablet 04/27/17 [Rx Confirmed 03/03/18] Lurasidone HCl [Latuda] 160 mg PO HS 09/10/17 [History Confirmed 03/03/18] Clonidine HCl 0.1 mg [Catapres 0.1 MG] 0.1 mg PO BID tablet 09/11/17 [Rx Confirmed 03/03/18] Carvedilol 6.25 mg [Coreg 6.25 MG] 25 mg PO BID 11/13/17 [History Confirmed 03/03/18] Clonazepam 0.5 mg [Klonopin 0.5 MG] 0.5 mg PO TID 11/13/17 [History Confirmed 03/03/18] Insulin Aspart [NovoLOG Insulin] 15 units SQ BID PRN 11/13/17 [History Confirmed 03/03/18] Lacosamide [Vimpat] 200 mg PO BID 03/03/18 [History Confirmed 03/03/18] Venlafaxine HCl ER 75 mg [Effexor XR 75 MG] 300 mg PO QHS 03/03/18 [ History Confirmed 03/03/18] Allergies/Adverse Reactions: Allergies Allergy/AdvReac Type Severity Reaction Status Date / Time egg Allergy Verified 11/13/17 18:05 metoprolol AdvReac Intermediate blood Verified 11/13/17 18:05 pressure bottoms out to fast - Past Medical History Past Medical History: Yes Neurological History: Peripheral Neuropathy, Stroke, Other ENT History: No Pertinent History Cardiac History: Hypertension Respiratory History: No Pertinent History Endocrine Medical History: Diabetes Type II Musculoskelatal History: Other GI Medical History: GERD History: No Pertinent History Pyscho-Social History: Anxiety, Depression Male Reproductive Disorders: Other Comment: 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 DDD/back - Past Surgical History Past Surgical History: Yes Neuro Surgical History: No Pertinent History Cardiac History: No Pertinent History Respiratory Surgery: No Pertinent History GI Surgical History: No Pertinent History Genitourinary Surgical Hx: No Pertinent History Musculskeletal Surgical Hx: No Pertinent History Male Surgical History: No Pertinent History Other Surgical History: heart cath - Social History Smoking Status: Never smoker Exposure to second hand smoke: No Alcohol: None Drug Use: none Significant Family History: diabetes, hypertension - Physical Exam Vital Signs: Vital Signs - 24 hr Temp Pulse Resp BP Pulse Ox 03/04/18 06:56 97.4 F 86 18 116/75 96 03/04/18 04:05 98.1 F 84 18 111/70 96 03/04/18 00:12 98.2 F 94 H 18 127/69 96 03/03/18 21:05 98.1 F 109 H 20 133/85 96 03/03/18 20:11 98.7 F 101 H 23 134/86 96 03/03/18 19:17 109 H 25 H 119/89 96 03/03/18 18:42 98.9 F 138 H 20 137/86 98 03/03/18 17:41 115 H 18 115/99 95 03/03/18 17:04 122 H 20 95 03/03/18 16:35 99.1 F 130 H 22 141/105 97 General Appearance: no apparent distress, alert Neurologic Exam: oriented x 3, cooperative Eye Exam: eyes nml inspection Ears, Nose, Throat Exam: moist mucous membranes Neck Exam: normal inspection, non-tender, No lymphadenopathy Respiratory Exam: normal breath sounds, lungs clear, No crackles/rales, No rhonchi, No wheezing Cardiovascular Exam: regular rate/rhythm, normal heart sounds, No murmur Gastrointestinal/Abdomen Exam: soft, normal bowel sounds, No tenderness, No distention, No mass, No guarding, No rebound Extremity Exam: normal inspection, No pedal edema, No swelling Skin Exam: normal color, warm, dry, No rash Results - Labs Lab/Micro Results: Accuchecks Date 03/04/18 Date 03/04/18 Date 03/04/18 Date 03/04/18 Date 03/03/18 Time 06:03 Time 04:00 Time 02:00 Time 00:00 Time 22:00 Accucheck Value: 260 Accucheck Value: 328 Accucheck Value: 352 Accucheck Value: 452 Accucheck Value: 468 Accucheck Value: 544 Lab Results-Last 24 Hours 03/03/18 03/03/18 03/03/18 Range/Units 17:30 17:30 17:30 WBC 10.2 (4.0-10.5) K/mm3 RBC 5.30 (4.1-5.6) M/mm3 Hgb 16.4 (12.5-18.0) gm/dl Hct 47.8 (42-50) % MCV 90.2 (78-100) fl MCH 30.9 (26-32) pg MCHC 34.3 (32-36) g/dl RDW 13.0 (11.5-14.0) % Plt Count 275 (150-450) K/mm3 MPV 9.8 H (6-9.5) fl Gran % 70.1 H (36.0-66.0) % Eos # (Auto) 0.10 (0-0.5) Absolute Lymphs (auto) 2.24 (1.0-4.6) Absolute Monos (auto) 0.67 (0.0-1.3) Lymphocytes % 21.9 L (24.0-44.0) % Monocytes % 6.6 (0.0-12.0) % Eosinophils % 1.0 (0.00-5.0) % Basophils % 0.4 (0.0-0.4) % Absolute Granulocytes 7.16 H (1.4-6.9) Basophils # 0.04 (0-0.4) PT 13.8 H (8.83-12.87) SECONDS INR 1.18 (0.8-3.0) D-Dimer < 215 L (215-500) ng/mL Sodium 132 L (137-145) mmol/L Potassium 5.4 H (3.5-5.1) mmol/L Chloride 89 L (98-107) mmol/L Carbon Dioxide 28 (22-30) mmol/L Anion Gap 21.0 H (5-15) MEQ/L BUN 15 (9-20) mg/dL Creatinine 1.34 H (0.66-1.25) mg/dL Estimated GFR > 60.0 ML/MIN Glucose 726 H* (74-106) mg/dL Calcium 10.1 (8.4-10.2) mg/dL Total Bilirubin 0.80 (0.2-1.3) mg/dL AST 31 (17-59) U/L ALT 51 H (0-50) U/L Alkaline Phosphatase 171 H (38-126) U/L Troponin I (0.000-0.034) ng/mL Serum Total Protein 8.3 H (6.3-8.2) g/dL Albumin 4.9 (3.5-5.0) g/dL Urine Color (YELLOW) Urine Appearance (CLEAR) Urine pH (5-6) Ur Specific Knox (1.005-1.025) Urine Protein (Negative) Urine Ketones (NEGATIVE) Urine Blood (0-5) Edgar/ul Urine Nitrite (NEGATIVE) Urine Bilirubin (NEGATIVE) Urine Urobilinogen (0-1) mg/dL Ur Leukocyte Esterase (NEGATIVE) Urine WBC (Auto) (0-5) /HPF Urine RBC (Auto) (0-2) /HPF U Epithel Cells (Auto) (FEW) /HPF Urine Bacteria (Auto) (NEGATIVE) /HPF Urine Culture Reflexed (NO) Urine Glucose (NEGATIVE) mg/dL Urine Opiates Level (NEGATIVE) Ur Methadone (NEGATIVE) Urine Barbiturates (NEGATIVE) Ur Phencyclidine (PCP) (NEGATIVE) Urine Amphetamine (NEGATIVE) U Benzodiazepine Level (NEGATIVE) Urine Cocaine (NEGATIVE) Urine Marijuana (THC) (NEGATIVE) 03/03/18 03/03/18 03/03/18 Range/Units 17:30 18:46 19:53 WBC (4.0-10.5) K/mm3 RBC (4.1-5.6) M/mm3 Hgb (12.5-18.0) gm/dl Hct (42-50) % MCV (78-100) fl MCH (26-32) pg MCHC (32-36) g/dl RDW (11.5-14.0) % Plt Count (150-450) K/mm3 MPV (6-9.5) fl Gran % (36.0-66.0) % Eos # (Auto) (0-0.5) Absolute Lymphs (auto) (1.0-4.6) Absolute Monos (auto) (0.0-1.3) Lymphocytes % (24.0-44.0) % Monocytes % (0.0-12.0) % Eosinophils % (0.00-5.0) % Basophils % (0.0-0.4) % Absolute Granulocytes (1.4-6.9) Basophils # (0-0.4) PT (8.83-12.87) SECONDS INR (0.8-3.0) D-Dimer (215-500) ng/mL Sodium (137-145) mmol/L Potassium (3.5-5.1) mmol/L Chloride (98-107) mmol/L Carbon Dioxide (22-30) mmol/L Anion Gap (5-15) MEQ/L BUN (9-20) mg/dL Creatinine (0.66-1.25) mg/dL Estimated GFR ML/MIN Glucose (74-106) mg/dL Calcium (8.4-10.2) mg/dL Total Bilirubin (0.2-1.3) mg/dL AST (17-59) U/L ALT (0-50) U/L Alkaline Phosphatase (38-126) U/L Troponin I < 0.012 (0.000-0.034) ng/mL Serum Total Protein (6.3-8.2) g/dL Albumin (3.5-5.0) g/dL Urine Color STRAW (YELLOW) Urine Appearance CLEAR (CLEAR) Urine pH 6.0 (5-6) Ur Specific Knox 1.028 (1.005-1.025) Urine Protein NEGATIVE (Negative) Urine Ketones TRACE (NEGATIVE) Urine Blood NEGATIVE (0-5) Edgar/ul Urine Nitrite NEGATIVE (NEGATIVE) Urine Bilirubin NEGATIVE (NEGATIVE) Urine Urobilinogen NEGATIVE (0-1) mg/dL Ur Leukocyte Esterase NEGATIVE (NEGATIVE) Urine WBC (Auto) NONE (0-5) /HPF Urine RBC (Auto) NONE (0-2) /HPF U Epithel Cells (Auto) NONE (FEW) /HPF Urine Bacteria (Auto) NONE (NEGATIVE) /HPF Urine Culture Reflexed NO (NO) Urine Glucose >=500 (NEGATIVE) mg/dL Urine Opiates Level NEGATIVE (NEGATIVE) Ur Methadone NEGATIVE (NEGATIVE) Urine Barbiturates NEGATIVE (NEGATIVE) Ur Phencyclidine (PCP) NEGATIVE (NEGATIVE) Urine Amphetamine NEGATIVE (NEGATIVE) U Benzodiazepine Level NEGATIVE (NEGATIVE) Urine Cocaine NEGATIVE (NEGATIVE) Urine Marijuana (THC) NEGATIVE (NEGATIVE) 03/03/18 03/03/18 03/04/18 Range/Units 20:00 23:25 02:00 WBC (4.0-10.5) K/mm3 RBC (4.1-5.6) M/mm3 Hgb (12.5-18.0) gm/dl Hct (42-50) % MCV (78-100) fl MCH (26-32) pg MCHC (32-36) g/dl RDW (11.5-14.0) % Plt Count (150-450) K/mm3 MPV (6-9.5) fl Gran % (36.0-66.0) % Eos # (Auto) (0-0.5) Absolute Lymphs (auto) (1.0-4.6) Absolute Monos (auto) (0.0-1.3) Lymphocytes % (24.0-44.0) % Monocytes % (0.0-12.0) % Eosinophils % (0.00-5.0) % Basophils % (0.0-0.4) % Absolute Granulocytes (1.4-6.9) Basophils # (0-0.4) PT (8.83-12.87) SECONDS INR (0.8-3.0) D-Dimer (215-500) ng/mL Sodium (137-145) mmol/L Potassium (3.5-5.1) mmol/L Chloride (98-107) mmol/L Carbon Dioxide (22-30) mmol/L Anion Gap (5-15) MEQ/L BUN (9-20) mg/dL Creatinine (0.66-1.25) mg/dL Estimated GFR ML/MIN Glucose (74-106) mg/dL Calcium (8.4-10.2) mg/dL Total Bilirubin (0.2-1.3) mg/dL AST (17-59) U/L ALT (0-50) U/L Alkaline Phosphatase (38-126) U/L Troponin I < 0.012 < 0.012 < 0.012 (0.000-0.034) ng/mL Serum Total Protein (6.3-8.2) g/dL Albumin (3.5-5.0) g/dL Urine Color (YELLOW) Urine Appearance (CLEAR) Urine pH (5-6) Ur Specific Knox (1.005-1.025) Urine Protein (Negative) Urine Ketones (NEGATIVE) Urine Blood (0-5) Edgar/ul Urine Nitrite (NEGATIVE) Urine Bilirubin (NEGATIVE) Urine Urobilinogen (0-1) mg/dL Ur Leukocyte Esterase (NEGATIVE) Urine WBC (Auto) (0-5) /HPF Urine RBC (Auto) (0-2) /HPF U Epithel Cells (Auto) (FEW) /HPF Urine Bacteria (Auto) (NEGATIVE) /HPF Urine Culture Reflexed (NO) Urine Glucose (NEGATIVE) mg/dL Urine Opiates Level (NEGATIVE) Ur Methadone (NEGATIVE) Urine Barbiturates (NEGATIVE) Ur Phencyclidine (PCP) (NEGATIVE) Urine Amphetamine (NEGATIVE) U Benzodiazepine Level (NEGATIVE) Urine Cocaine (NEGATIVE) Urine Marijuana (THC) (NEGATIVE) 03/04/18 03/04/18 03/04/18 Range/Units 05:18 05:18 05:18 WBC 13.1 H (4.0-10.5) K/mm3 RBC 4.55 (4.1-5.6) M/mm3 Hgb 14.2 (12.5-18.0) gm/dl Hct 40.1 L (42-50) % MCV 88.1 (78-100) fl MCH 31.2 (26-32) pg MCHC 35.4 D (32-36) g/dl RDW 12.8 (11.5-14.0) % Plt Count 255 (150-450) K/mm3 MPV 9.3 (6-9.5) fl Gran % 83.6 H (36.0-66.0) % Eos # (Auto) 0.01 (0-0.5) Absolute Lymphs (auto) 1.67 (1.0-4.6) Absolute Monos (auto) 0.43 (0.0-1.3) Lymphocytes % 12.8 L (24.0-44.0) % Monocytes % 3.3 (0.0-12.0) % Eosinophils % 0.1 (0.00-5.0) % Basophils % 0.2 (0.0-0.4) % Absolute Granulocytes 10.94 H (1.4-6.9) Basophils # 0.02 (0-0.4) PT (8.83-12.87) SECONDS INR (0.8-3.0) D-Dimer (215-500) ng/mL Sodium 135 L (137-145) mmol/L Potassium 4.8 (3.5-5.1) mmol/L Chloride 100 D (98-107) mmol/L Carbon Dioxide 26 (22-30) mmol/L Anion Gap 14.3 (5-15) MEQ/L BUN 16 (9-20) mg/dL Creatinine 0.95 (0.66-1.25) mg/dL Estimated GFR > 60.0 ML/MIN Glucose 286 H (74-106) mg/dL Calcium 9.1 (8.4-10.2) mg/dL Total Bilirubin 0.50 (0.2-1.3) mg/dL AST 24 (17-59) U/L ALT 43 (0-50) U/L Alkaline Phosphatase 94 (38-126) U/L Troponin I < 0.012 (0.000-0.034) ng/mL Serum Total Protein 7.0 (6.3-8.2) g/dL Albumin 3.9 (3.5-5.0) g/dL Urine Color (YELLOW) Urine Appearance (CLEAR) Urine pH (5-6) Ur Specific Knox (1.005-1.025) Urine Protein (Negative) Urine Ketones (NEGATIVE) Urine Blood (0-5) Edgar/ul Urine Nitrite (NEGATIVE) Urine Bilirubin (NEGATIVE) Urine Urobilinogen (0-1) mg/dL Ur Leukocyte Esterase (NEGATIVE) Urine WBC (Auto) (0-5) /HPF Urine RBC (Auto) (0-2) /HPF U Epithel Cells (Auto) (FEW) /HPF Urine Bacteria (Auto) (NEGATIVE) /HPF Urine Culture Reflexed (NO) Urine Glucose (NEGATIVE) mg/dL Urine Opiates Level (NEGATIVE) Ur Methadone (NEGATIVE) Urine Barbiturates (NEGATIVE) Ur Phencyclidine (PCP) (NEGATIVE) Urine Amphetamine (NEGATIVE) U Benzodiazepine Level (NEGATIVE) Urine Cocaine (NEGATIVE) Urine Marijuana (THC) (NEGATIVE) Accuchecks Date 03/04/18 Date 03/04/18 Date 03/04/18 Date 03/04/18 Date 03/03/18 Time 06:03 Time 04:00 Time 02:00 Time 00:00 Time 22:00 Accucheck Value: 260 Accucheck Value: 328 Accucheck Value: 352 Accucheck Value: 452 Accucheck Value: 468 Accucheck Value: 544 - Radiology Impressions Radiology Exams & Impressions: Radiology Procedures Category Date Time Status CHEST 1 VIEW (PORTABLE) Stat Exams 03/03/18 16:59 Completed Assessment/Plan (1) Hyperglycemia Current Visit: Yes Status: Acute Assessment & Plan: Much better, BS down to 200s. Code(s): R73.9 - HYPERGLYCEMIA, UNSPECIFIED (2) Shortness of breath Current Visit: Yes Status: Acute Assessment & Plan: Resolved. NH ruled out. Code(s): R06.02 - SHORTNESS OF BREATH (3) Seizure Current Visit: Yes Status: Chronic Code(s): R56.9 - UNSPECIFIED CONVULSIONS (4) Hyperglycemia due to type 2 diabetes mellitus Current Visit: No Status: Chronic Qualifiers: Diabetes mellitus manager terminal insulin use: with manager terminal use Qualified Code( s): E11.65 - Type 2 diabetes mellitus with hyperglycemia; Z79.4 - terminal worker ( current) use of insulin Assessment & Plan: will refer to new environmental health specialist through our outpatient. Code(s): E11.65 - TYPE 2 DIABETES MELLITUS WITH HYPERGLYCEMIA Hospital Summary - Hospital Course Hospital Course: is a 43 year old male pt of mine from [facility] with PMHx diabetes mellitus II, uncontrolled, who came to ER last night wiht BS of 726. He had some SOB of breath at home. Yesterday morning his meter just read "hi." the Blood sugar came down to 500s with IVF in the ER (and 10 units of insulin). Through the night he got SS insulin an dIVF and this morning his BS is 286. He is feeling fine. Would like to go home. Woul dlike to see a new environmental health specialist as his will not see him anymore due to missed appointments. - Vitals & Intake/Output Vital Signs: Vital Signs Temperature 97.4 F 03/04/18 06:56 Pulse Rate 86 03/04/18 06:56 Respiratory Rate 18 03/04/18 06:56 Blood Pressure 116/75 03/04/18 06:56 O2 Sat by Pulse Oximetry 96 03/04/18 06:56 Intake & Output: Intake & Output 03/01/18 03/02/18 03/03/18 03/04/18 11:59 11:59 11:59 11:59 Intake Total 2340 Output Total 1900 Balance 440 Weight 98.7 kg - Lab Result Diagrams: 03/04/18 05:18 03/04/18 05:18 Lab Results-Last 24 Hrs: Accuchecks Date 03/04/18 Date 03/04/18 Date 03/04/18 Date 03/04/18 Date 03/03/18 Time 06:03 Time 04:00 Time 02:00 Time 00:00 Time 22:00 Accucheck Value: 260 Accucheck Value: 328 Accucheck Value: 352 Accucheck Value: 452 Accucheck Value: 468 Accucheck Value: 544 Lab Results-Last 24 Hours 03/03/18 03/03/18 03/03/18 Range/Units 17:30 17:30 17:30 WBC 10.2 (4.0-10.5) K/mm3 RBC 5.30 (4.1-5.6) M/mm3 Hgb 16.4 (12.5-18.0) gm/dl Hct 47.8 (42-50) % MCV 90.2 (78-100) fl MCH 30.9 (26-32) pg MCHC 34.3 (32-36) g/dl RDW 13.0 (11.5-14.0) % Plt Count 275 (150-450) K/mm3 MPV 9.8 H (6-9.5) fl Gran % 70.1 H (36.0-66.0) % Eos # (Auto) 0.10 (0-0.5) Absolute Lymphs (auto) 2.24 (1.0-4.6) Absolute Monos (auto) 0.67 (0.0-1.3) Lymphocytes % 21.9 L (24.0-44.0) % Monocytes % 6.6 (0.0-12.0) % Eosinophils % 1.0 (0.00-5.0) % Basophils % 0.4 (0.0-0.4) % Absolute Granulocytes 7.16 H (1.4-6.9) Basophils # 0.04 (0-0.4) PT 13.8 H (8.83-12.87) SECONDS INR 1.18 (0.8-3.0) D-Dimer < 215 L (215-500) ng/mL Sodium 132 L (137-145) mmol/L Potassium 5.4 H (3.5-5.1) mmol/L Chloride 89 L (98-107) mmol/L Carbon Dioxide 28 (22-30) mmol/L Anion Gap 21.0 H (5-15) MEQ/L BUN 15 (9-20) mg/dL Creatinine 1.34 H (0.66-1.25) mg/dL Estimated GFR > 60.0 ML/MIN Glucose 726 H* (74-106) mg/dL Calcium 10.1 (8.4-10.2) mg/dL Total Bilirubin 0.80 (0.2-1.3) mg/dL AST 31 (17-59) U/L ALT 51 H (0-50) U/L Alkaline Phosphatase 171 H (38-126) U/L Troponin I (0.000-0.034) ng/mL Serum Total Protein 8.3 H (6.3-8.2) g/dL Albumin 4.9 (3.5-5.0) g/dL Urine Color (YELLOW) Urine Appearance (CLEAR) Urine pH (5-6) Ur Specific Knox (1.005-1.025) Urine Protein (Negative) Urine Ketones (NEGATIVE) Urine Blood (0-5) Edgar/ul Urine Nitrite (NEGATIVE) Urine Bilirubin (NEGATIVE) Urine Urobilinogen (0-1) mg/dL Ur Leukocyte Esterase (NEGATIVE) Urine WBC (Auto) (0-5) /HPF Urine RBC (Auto) (0-2) /HPF U Epithel Cells (Auto) (FEW) /HPF Urine Bacteria (Auto) (NEGATIVE) /HPF Urine Culture Reflexed (NO) Urine Glucose (NEGATIVE) mg/dL Urine Opiates Level (NEGATIVE) Ur Methadone (NEGATIVE) Urine Barbiturates (NEGATIVE) Ur Phencyclidine (PCP) (NEGATIVE) Urine Amphetamine (NEGATIVE) U Benzodiazepine Level (NEGATIVE) Urine Cocaine (NEGATIVE) Urine Marijuana (THC) (NEGATIVE) 03/03/18 03/03/18 03/03/18 Range/Units 17:30 18:46 19:53 WBC (4.0-10.5) K/mm3 RBC (4.1-5.6) M/mm3 Hgb (12.5-18.0) gm/dl Hct (42-50) % MCV (78-100) fl MCH (26-32) pg MCHC (32-36) g/dl RDW (11.5-14.0) % Plt Count (150-450) K/mm3 MPV (6-9.5) fl Gran % (36.0-66.0) % Eos # (Auto) (0-0.5) Absolute Lymphs (auto) (1.0-4.6) Absolute Monos (auto) (0.0-1.3) Lymphocytes % (24.0-44.0) % Monocytes % (0.0-12.0) % Eosinophils % (0.00-5.0) % Basophils % (0.0-0.4) % Absolute Granulocytes (1.4-6.9) Basophils # (0-0.4) PT (8.83-12.87) SECONDS INR (0.8-3.0) D-Dimer (215-500) ng/mL Sodium (137-145) mmol/L Potassium (3.5-5.1) mmol/L Chloride (98-107) mmol/L Carbon Dioxide (22-30) mmol/L Anion Gap (5-15) MEQ/L BUN (9-20) mg/dL Creatinine (0.66-1.25) mg/dL Estimated GFR ML/MIN Glucose (74-106) mg/dL Calcium (8.4-10.2) mg/dL Total Bilirubin (0.2-1.3) mg/dL AST (17-59) U/L ALT (0-50) U/L Alkaline Phosphatase (38-126) U/L Troponin I < 0.012 (0.000-0.034) ng/mL Serum Total Protein (6.3-8.2) g/dL Albumin (3.5-5.0) g/dL Urine Color STRAW (YELLOW) Urine Appearance CLEAR (CLEAR) Urine pH 6.0 (5-6) Ur Specific Knox 1.028 (1.005-1.025) Urine Protein NEGATIVE (Negative) Urine Ketones TRACE (NEGATIVE) Urine Blood NEGATIVE (0-5) Edgar/ul Urine Nitrite NEGATIVE (NEGATIVE) Urine Bilirubin NEGATIVE (NEGATIVE) Urine Urobilinogen NEGATIVE (0-1) mg/dL Ur Leukocyte Esterase NEGATIVE (NEGATIVE) Urine WBC (Auto) NONE (0-5) /HPF Urine RBC (Auto) NONE (0-2) /HPF U Epithel Cells (Auto) NONE (FEW) /HPF Urine Bacteria (Auto) NONE (NEGATIVE) /HPF Urine Culture Reflexed NO (NO) Urine Glucose >=500 (NEGATIVE) mg/dL Urine Opiates Level NEGATIVE (NEGATIVE) Ur Methadone NEGATIVE (NEGATIVE) Urine Barbiturates NEGATIVE (NEGATIVE) Ur Phencyclidine (PCP) NEGATIVE (NEGATIVE) Urine Amphetamine NEGATIVE (NEGATIVE) U Benzodiazepine Level NEGATIVE (NEGATIVE) Urine Cocaine NEGATIVE (NEGATIVE) Urine Marijuana (THC) NEGATIVE (NEGATIVE) 03/03/18 03/03/18 03/04/18 Range/Units 20:00 23:25 02:00 WBC (4.0-10.5) K/mm3 RBC (4.1-5.6) M/mm3 Hgb (12.5-18.0) gm/dl Hct (42-50) % MCV (78-100) fl MCH (26-32) pg MCHC (32-36) g/dl RDW (11.5-14.0) % Plt Count (150-450) K/mm3 MPV (6-9.5) fl Gran % (36.0-66.0) % Eos # (Auto) (0-0.5) Absolute Lymphs (auto) (1.0-4.6) Absolute Monos (auto) (0.0-1.3) Lymphocytes % (24.0-44.0) % Monocytes % (0.0-12.0) % Eosinophils % (0.00-5.0) % Basophils % (0.0-0.4) % Absolute Granulocytes (1.4-6.9) Basophils # (0-0.4) PT (8.83-12.87) SECONDS INR (0.8-3.0) D-Dimer (215-500) ng/mL Sodium (137-145) mmol/L Potassium (3.5-5.1) mmol/L Chloride (98-107) mmol/L Carbon Dioxide (22-30) mmol/L Anion Gap (5-15) MEQ/L BUN (9-20) mg/dL Creatinine (0.66-1.25) mg/dL Estimated GFR ML/MIN Glucose (74-106) mg/dL Calcium (8.4-10.2) mg/dL Total Bilirubin (0.2-1.3) mg/dL AST (17-59) U/L ALT (0-50) U/L Alkaline Phosphatase (38-126) U/L Troponin I < 0.012 < 0.012 < 0.012 (0.000-0.034) ng/mL Serum Total Protein (6.3-8.2) g/dL Albumin (3.5-5.0) g/dL Urine Color (YELLOW) Urine Appearance (CLEAR) Urine pH (5-6) Ur Specific Knox (1.005-1.025) Urine Protein (Negative) Urine Ketones (NEGATIVE) Urine Blood (0-5) Edgar/ul Urine Nitrite (NEGATIVE) Urine Bilirubin (NEGATIVE) Urine Urobilinogen (0-1) mg/dL Ur Leukocyte Esterase (NEGATIVE) Urine WBC (Auto) (0-5) /HPF Urine RBC (Auto) (0-2) /HPF U Epithel Cells (Auto) (FEW) /HPF Urine Bacteria (Auto) (NEGATIVE) /HPF Urine Culture Reflexed (NO) Urine Glucose (NEGATIVE) mg/dL Urine Opiates Level (NEGATIVE) Ur Methadone (NEGATIVE) Urine Barbiturates (NEGATIVE) Ur Phencyclidine (PCP) (NEGATIVE) Urine Amphetamine (NEGATIVE) U Benzodiazepine Level (NEGATIVE) Urine Cocaine (NEGATIVE) Urine Marijuana (THC) (NEGATIVE) 03/04/18 03/04/18 03/04/18 Range/Units 05:18 05:18 05:18 WBC 13.1 H (4.0-10.5) K/mm3 RBC 4.55 (4.1-5.6) M/mm3 Hgb 14.2 (12.5-18.0) gm/dl Hct 40.1 L (42-50) % MCV 88.1 (78-100) fl MCH 31.2 (26-32) pg MCHC 35.4 D (32-36) g/dl RDW 12.8 (11.5-14.0) % Plt Count 255 (150-450) K/mm3 MPV 9.3 (6-9.5) fl Gran % 83.6 H (36.0-66.0) % Eos # (Auto) 0.01 (0-0.5) Absolute Lymphs (auto) 1.67 (1.0-4.6) Absolute Monos (auto) 0.43 (0.0-1.3) Lymphocytes % 12.8 L (24.0-44.0) % Monocytes % 3.3 (0.0-12.0) % Eosinophils % 0.1 (0.00-5.0) % Basophils % 0.2 (0.0-0.4) % Absolute Granulocytes 10.94 H (1.4-6.9) Basophils # 0.02 (0-0.4) PT (8.83-12.87) SECONDS INR (0.8-3.0) D-Dimer (215-500) ng/mL Sodium 135 L (137-145) mmol/L Potassium 4.8 (3.5-5.1) mmol/L Chloride 100 D (98-107) mmol/L Carbon Dioxide 26 (22-30) mmol/L Anion Gap 14.3 (5-15) MEQ/L BUN 16 (9-20) mg/dL Creatinine 0.95 (0.66-1.25) mg/dL Estimated GFR > 60.0 ML/MIN Glucose 286 H (74-106) mg/dL Calcium 9.1 (8.4-10.2) mg/dL Total Bilirubin 0.50 (0.2-1.3) mg/dL AST 24 (17-59) U/L ALT 43 (0-50) U/L Alkaline Phosphatase 94 (38-126) U/L Troponin I < 0.012 (0.000-0.034) ng/mL Serum Total Protein 7.0 (6.3-8.2) g/dL Albumin 3.9 (3.5-5.0) g/dL Urine Color (YELLOW) Urine Appearance (CLEAR) Urine pH (5-6) Ur Specific Knox (1.005-1.025) Urine Protein (Negative) Urine Ketones (NEGATIVE) Urine Blood (0-5) Edgar/ul Urine Nitrite (NEGATIVE) Urine Bilirubin (NEGATIVE) Urine Urobilinogen (0-1) mg/dL Ur Leukocyte Esterase (NEGATIVE) Urine WBC (Auto) (0-5) /HPF Urine RBC (Auto) (0-2) /HPF U Epithel Cells (Auto) (FEW) /HPF Urine Bacteria (Auto) (NEGATIVE) /HPF Urine Culture Reflexed (NO) Urine Glucose (NEGATIVE) mg/dL Urine Opiates Level (NEGATIVE) Ur Methadone (NEGATIVE) Urine Barbiturates (NEGATIVE) Ur Phencyclidine (PCP) (NEGATIVE) Urine Amphetamine (NEGATIVE) U Benzodiazepine Level (NEGATIVE) Urine Cocaine (NEGATIVE) Urine Marijuana (THC) (NEGATIVE) Micro Results-Entire Visit: Accuchecks Date 03/04/18 Date 03/04/18 Date 03/04/18 Date 03/04/18 Date 03/03/18 Time 06:03 Time 04:00 Time 02:00 Time 00:00 Time 22:00 Accucheck Value: 260 Accucheck Value: 328 Accucheck Value: 352 Accucheck Value: 452 Accucheck Value: 468 Accucheck Value: 544 - Radiology Exams Ordered Rad Exams-Entire Visit: Radiology Procedures Category Date Time Status CHEST 1 VIEW (PORTABLE) Stat Exams 03/03/18 16:59 Completed - Procedures and Test Procedures and Tests throughout Hospitalization: Therapy Orders & Screens 03/03/18 16:47 Respiratory Nebulizer STAT Comment: Diagnosis: Shortness of Breath 03/03/18 16:58 Respiratory Therapy Assessment DAILY Comment: Diagnosis: Shortness of Breath 03/03/18 17:04 Peak Expiratory Flow Rate ONCE Comment: Reason For Exam: Diagnosis: Shortness of Breath - Discharge Disposition: Home, Self-Care Condition: Good Prescriptions: Continue Metformin HCl 850 mg [Glucophage 850 MG] 850 mg PO TID Amitriptyline HCl 25 mg [Elavil 25 mg] 150 mg PO QHS Insulin Degludec [Tresiba Flextouch U-100] 52 unit SQ DAILY Aspirin 81 mg PO DAILY #1 tablet Pravastatin Sodium 20 mg PO HS #30 tablet Lurasidone HCl [Latuda] 160 mg PO HS Clonidine HCl 0.1 mg [Catapres 0.1 MG] 0.1 mg PO BID tablet Insulin Aspart [NovoLOG Insulin] 15 units SQ BID PRN PRN Reason: blood glucose Carvedilol 6.25 mg [Coreg 6.25 MG] 25 mg PO BID Clonazepam 0.5 mg [Klonopin 0.5 MG] 0.5 mg PO TID Venlafaxine HCl ER 75 mg [Effexor XR 75 MG] 300 mg PO QHS Lacosamide [Vimpat] 200 mg PO BID Follow up with: ARY JADE [Primary Care Provider] - 1 Week
[2018-03-04] MEDS ORDERED: NON-FORMULARY ITEM (Aspirin [Aspirin] 81 MG) PO SCH (10:00)
[2018-03-04] MEDS ORDERED: ECOTRIN 81 MG PO SCH (10:00)
[2018-03-04] MEDS ORDERED: Lantus Insulin SQ SCH (10:00)
[2018-03-04] MEDS ORDERED: COREG 12.5 MG PO SCH (10:00)
[2018-03-04] MEDS ORDERED: Coreg 6.25 MG PO SCH (10:00)
[2018-03-04] MEDS ORDERED: NON-FORMULARY ITEM PO SCH (10:00)
[2018-03-04] MEDS ORDERED: INSULIN DEGLUDEC 52 UNIT SQ SCH (10:00)
[2018-03-04] MEDS ORDERED: NON-FORMULARY ITEM (Pravastatin Sodium [Pravastatin Sodium] 20 MG) PO SCH (22:00)
[2018-03-04] MEDS ORDERED: ZOCOR 20MG PO SCH (22:00)
[2018-03-04] MEDS ORDERED: LURASIDONE HCL PO SCH (22:00)
== END 2018-03-04 09:40 | disposition home or self-care (01) ==
LOC: ED 16:33 → MED SURG 20:40
PROVIDERS: ADMIT Family Medicine; ATTEND Family Medicine
DX: E11.65 Type 2 diabetes mellitus with hyperglycemia (principal); Z79.4 Long term (current) use of insulin; G62.9 Polyneuropathy, unspecified; K21.9 Gastro-esophageal reflux disease without esophagitis; F41.9 Anxiety disorder, unspecified; F32.9 Major depressive disorder, single episode, unspecified; R06.02 Shortness of breath; R56.9 Unspecified convulsions
CPT/HCPCS: 36000; 36415; 71045; 80053; 80307; 81001; 82962; 83036; 84484; 85025; 85379; 85610; 93005; 93268; 94150; 94640; 96360; 96361; 96374; 96375; 96376; 99285; G0378; J2930; A9270-GY

== ENCOUNTER 2018-09-24 18:05 | Observation (INO) | payer BC ==
[2018-09-24] MEDS ORDERED: Zofran 4 MG/2 ML VIAL IV ONE (18:22)
[2018-09-24] MEDS ORDERED: Sodium Chloride 0.9% 1000 ML 1,000 ML IV STA ×2 (18:22→20:05)
[2018-09-24] MEDS ORDERED: Sodium Chloride 0.9% 1000 ML 1,000 ML ONE ×2 (18:32→19:58)
[2018-09-24] MEDS ORDERED: Zofran 4 MG/2 ML VIAL ONE (18:32)
[2018-09-24 18:36] LABS: BASOPHIL % 0.5 % (0.0-0.4); Basophil (Absolute #) 0.04 (0-0.4); Eosinophil % 2.5 % (0.00-5.0); Granulocyte Absolute (ANC) 4.71 (1.4-6.9); Granulocytes % 58.1 % (36.0-66.0); Hematocrit 44.7 % (42-50); Hemoglobin 15.6 gm/dl (12.5-18.0); Lymphocyte (Absolute #) 2.39 (1.0-4.6); Lymphocytes % 29.5 % (24.0-44.0); Mean Cell Volume 92.7 fl (78-100); Mean Corpuscular Hemoglobin 32.4 pg (26-32); Mean Corpuscular Hgb Concent. 34.9 g/dl (32-36); Mean Platelet Volume 9.4 fl (6-9.5); Monocyte (Absolute #) 0.76 (0.0-1.3); Monocytes % 9.4 % (0.0-12.0); Platelet Count 293 K/mm3 (150-450); Red Blood Count 4.82 M/mm3 (4.1-5.6); White Blood Count 8.1 K/mm3 (4.0-10.5)
[2018-09-24 18:48] LABS: ALBUMIN 4.4 g/dL (3.5-5.0); ALKALINE PHOSPHATASE 147 U/L (38-126); ANION GAP 21.2 MEQ/L (5-15); BLOOD UREA NITROGEN 13 mg/dL (9-20); CHLORIDE 93 mmol/L (98-107); Calcium 9.7 mg/dL (8.4-10.2); Carbon Dioxide 27 mmol/L (22-30); Creatinine 1 1.18 mg/dL (0.66-1.25); Potassium 4.8 mmol/L (3.5-5.1); SGOT/AST 29 U/L (17-59); SGPT/ALT 45 U/L (0-50); SODIUM 136 mmol/L (137-145); Total Protein 8.2 g/dL (6.3-8.2)
--- NOTE | 2018-09-24 18:48 | ERPHSYRPT ---
<ALVARO MATHEW - Last Filed: 09/24/18 18:43> - History of Present Illness Historian: patient Exam Limitations: no limitations Patient Subjective Stated Complaint: pt here for chest pain to left side of chest since this morning at 0900, nas[place], high blood sugars today, Triage Nursing Assessment: pt alert, walked in, resp easy, skin w/d/p, no edema , moves all ext well. chest clear, no jvd Physician History: Pt is a 43 y/o male that had a few days of high BG in the 500s. He is using Tresiba and Humalog inj for his DM II and Metformin PO. Pt started having chest pain today, and his BG showed high. Pt developed diaphoresis, and nausea , and presented to the ED. Pt does have a h/o HTN, and he is taking Coreg for it. He did have a cardiac cath that was clean. Timing/Duration: day(s) Activities at Onset: none Quality: pressure Location: substernal Chest Pain Radiation: no radiation Severity of Pain-Max: mild Severity of Pain-Current: mild Modifying Factors: Improves With: nothing Associated Symptoms: nausea Prior Chest Pain/Cardiac Workup: cardiac cath Aspirin Treatment Today: 81 mg x 1 Allergies/Adverse Reactions: egg Allergy (Verified 09/24/18 18:16) metoprolol Adverse Reaction (Intermediate, Verified 09/24/18 18:16) blood pressure bottoms out to fast Home Medications: Metformin HCl 850 mg [Glucophage 850 MG] 850 mg PO TID 03/21/14 [History] Amitriptyline HCl 25 mg [Elavil 25 mg] 150 mg PO QHS 05/31/14 [History] Insulin Degludec [Tresiba Flextouch U-100] 52 unit SQ BID 11/22/16 [History] Lurasidone HCl [Latuda] 160 mg PO HS 09/10/17 [History] Carvedilol 6.25 mg [Coreg 6.25 MG] 25 mg PO BID 11/13/17 [History] Clonazepam 0.5 mg [Klonopin 0.5 MG] 1 mg PO TID 11/13/17 [History] Insulin Aspart [NovoLOG Insulin] 15 units SQ BID PRN 11/13/17 [History] Venlafaxine HCl ER 75 mg [Effexor XR 75 MG] 75 mg PO QHS 03/03/18 [History ] Desvenlafaxine Succinate [Pristiq] 25 mg DAILY 09/24/18 [History] Eslicarbazepine Acetate [Aptiom] 800 mg DAILY 09/24/18 [History] Hx Tetanus, Diphtheria Vaccination/Date Given: Yes Hx Influenza Vaccination/Date Given: No Hx Pneumococcal Vaccination/Date Given: No Immunizations Up to Date: No - Review of Systems Constitutional: No Fever, No Chills Eyes: No Symptoms Ears, Nose, & Throat: No Symptoms Respiratory: No Cough, No Dyspnea Cardiac: Chest Pain Abdominal/Gastrointestinal: Nausea Genitourinary Symptoms: No Dysuria Musculoskeletal: No Back Pain, No Neck Pain Skin: No Rash Neurological: No Dizziness, No Focal Weakness, No Sensory Changes - Past Medical History Pertinent Past Medical History: Yes Neurological History: Epilepsy, Peripheral Neuropathy, Stroke, Other ENT History: No Pertinent History Cardiac History: Hypertension Respiratory History: No Pertinent History Endocrine Medical History: Diabetes Type II Musculoskeletal History: Other GI Medical History: GERD History: No Pertinent History Psycho-Social History: Anxiety, Depression Male Reproductive Disorders: Other Other Medical History: 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 DDD/back - Past Surgical History Past Surgical History: Yes Neuro Surgical History: No Pertinent History Cardiac: Cardiac Catheterization Respiratory: No Pertinent History Gastrointestinal: No Pertinent History Genitourinary: No Pertinent History Musculoskeletal: No Pertinent History Male Surgical History: No Pertinent History Other Surgical History: heart cath - Social History Smoking Status: Never smoker Exposure to second hand smoke: No Alcohol Use: None Drug Use: none Patient Lives Alone: No Significant Family History: diabetes, hypertension - Nursing Vital Signs Nursing Vital Signs: Initial Vital Signs Temperature 97 F 09/24/18 18:10 Pulse Rate 110 H 09/24/18 18:10 Respiratory Rate 18 09/24/18 18:10 Blood Pressure 160/112 09/24/18 18:10 O2 Sat by Pulse Oximetry 97 09/24/18 18:10 Pain Scale Pain Intensity 5 - Physical Exam General Appearance: mild distress Eye Exam: PERRL/EOMI, eyes nml inspection Ears, Nose, Throat Exam: normal ENT inspection, moist mucous membranes Neck Exam: normal inspection, non-tender, supple, full range of motion Respiratory Exam: normal breath sounds, lungs clear, No respiratory distress Cardiovascular Exam: normal heart sounds, tachycardia Gastrointestinal/Abdomen Exam: soft, No tenderness, No mass Back Exam: normal inspection, No CVA tenderness, No vertebral tenderness Extremity Exam: normal inspection, normal range of motion Neurologic Exam: alert, oriented x 3, cooperative, normal mood/affect, sensation nml, No motor deficits SpO2: 97 Ordered Tests: Active Orders 24 hr Category Date Time Status Up Ad Marybeth ROUTINE Activity 09/24/18 23:24 Ordered ACCUCHECK [Accucheck] STAT Care 09/24/18 22:49 Active Accucheck ACHS Care 09/24/18 23:22 Ordered Code Status Order ROUTINE Care 09/24/18 23:23 Ordered IV Care Q6H Care 09/24/18 23:23 Ordered Oxygen-ED Only Nasal Cannula 2 lpm Care 09/24/18 19:[address] in Observation ROUTINE Care 09/24/18 23:23 Ordered Vital Signs Q4H Care 09/24/18 23:22 Ordered 2000 Calorie ADA Diet 09/24/18 Breakfast Ordered CHEST 2 VIEWS (PA AND LAT) Stat Exams 09/24/18 18:23 Completed ARTERIAL BLOOD GASES Stat Lab 09/24/18 19:33 Completed BMP Stat Lab 09/24/18 21:58 Completed CBC W DIFF Stat Lab 09/24/18 18:36 Completed CMP Stat Lab 09/24/18 18:36 Completed D-DIMER QUANTITATION Stat Lab 09/24/18 18:36 Completed PHOSPHOROUS Stat Lab 09/24/18 21:58 Completed TROPONIN Q3H Lab 09/24/18 18:36 Completed TROPONIN Q3H Lab 09/24/18 21:58 Completed TROPONIN Q3H Lab 09/25/18 00:30 Ordered TROPONIN Q3H Lab 09/25/18 03:30 Ordered TROPONIN Q3H Lab 09/25/18 06:30 Ordered UA W/RFX UR CULTURE Stat Lab 09/24/18 19:13 Completed Oxygen Nasal Cannula 2 lpm RT 09/24/18 23:22 Ordered Transfer Order Routine Transfer 09/24/18 Ordered Medication Summary Generic Name Dose Route Start Last Admin Trade Name Freq PRN Reason Stop Dose Admin Acetaminophen 650 mg 09/24/18 23:22 Tylenol 325 Mg PO 10/24/18 23:21 Q4H PRN PRN PAIN AND/OR FEVER Amitriptyline HCl 150 mg 09/25/18 22:00 Amitriptyline Hcl 50 Mg Tablet PO 10/25/18 21:59 HS [facility] Aspirin 81 mg 09/25/18 10:00 Ecotrin 81 Mg PO 10/25/18 09:59 DAILY DASHAWN Carvedilol 25 mg 09/25/18 10:00 Coreg 12.5 Mg PO 10/25/18 09:59 BID [facility] Clonazepam 0.5 mg 09/25/18 10:00 Klonopin 0.5 Mg PO 10/25/18 09:59 TID DASHAWN Clonidine 0.1 mg 09/25/18 10:00 Catapres 0.1 Mg PO 10/25/18 09:59 BID [facility] Desvenlafaxine Succinate 25 mg 09/25/18 10:00 Pristiq Er PO 10/25/18 09:59 DAILY [facility] Insulin Human Regular 100 101 mls @ 8.08 mls/hr 09/24/18 19:15 09/24/18 19:21 units/ Sodium Chloride IV 10/24/18 19:14 8 units/hr .[id number] [facility] 8.08 mls/hr Administration 8 UNITS/HR Sodium Chloride 1,000 mls @ 75 mls/hr 09/24/18 23:30 Sodium Chloride 0.9% 1000 Ml IV 10/24/18 23:29 .[id number] [facility] Insulin Glargine 52 unit 09/25/18 10:00 Lantus Insulin SQ 10/25/18 09:59 BID [facility] Insulin Human Regular 0 unit 09/24/18 23:22 Novolin R SQ 10/24/18 23:21 UD PRN HYPERGLYCEMIA Metformin HCl 850 mg 09/25/18 08:00 Glucophage 850 Mg PO 10/25/18 07:59 TIDWM [facility] Ondansetron HCl 4 mg 09/24/18 23:22 Zofran 4 Mg/2 Ml Vial IV 10/24/18 23:21 Q6H PRN PRN NAUSEA/VOMITING Discontinued Medications Generic Name Dose Route Start Last Admin Trade Name Freq PRN Reason Stop Dose Admin Sodium Chloride 1,000 mls @ 999 mls/hr 09/24/18 18:22 09/24/18 20:06 Sodium Chloride 0.9% 1000 Ml IV 09/24/18 19:22 Infused .Q1H1M STA Infusion Sodium Chloride Confirm 09/24/18 18:32 Sodium Chloride 0.9% 1000 Ml Administered 09/24/18 18:33 Dose 1,000 mls @ ud .ROUTE .STK-MED ONE Sodium Chloride Confirm 09/24/18 19:51 Sodium Chloride 0.9% 100 Ml Ivpb Administered 09/24/18 19:52 Dose 100 mls @ ud IV .STK-MED ONE Sodium Chloride Confirm 09/24/18 19:58 Sodium Chloride 0.9% 1000 Ml Administered 09/24/18 19:59 Dose 1,000 mls @ ud .ROUTE .STK-MED ONE Sodium Chloride 1,000 mls @ 999 mls/hr 09/24/18 20:05 09/24/18 21:04 Sodium Chloride 0.9% 1000 Ml IV 09/24/18 21:05 Infused .Q1H1M STA Infusion Insulin Human Regular 8 unit 09/24/18 19:14 09/24/18 19:20 Novolin R IV 09/24/18 19:15 8 unit STAT ONE Administration Insulin Human Regular Confirm 09/24/18 19:17 Novolin R Administered 09/24/18 19:18 Dose 8 unit .ROUTE .STK-MED ONE Insulin Human Regular Confirm 09/24/18 19:51 Novolin R Administered 09/24/18 19:52 Dose 100 unit .ROUTE .STK-MED ONE Ondansetron HCl 4 mg 09/24/18 18:22 09/24/18 18:34 Zofran 4 Mg/2 Ml Vial IV 09/24/18 18:23 4 mg STAT ONE Administration Ondansetron HCl Confirm 09/24/18 18:32 Zofran 4 Mg/2 Ml Vial Administered 09/24/18 18:33 Dose 4 mg .ROUTE .STK-MED ONE Lab/Rad Data: Laboratory Result Diagrams 09/24/18 18:36 09/24/18 21:58 Laboratory Results 09/24/18 09/24/18 09/24/18 Range/Units 21:58 21:58 21:58 WBC (4.0-10.5) K/mm3 RBC (4.1-5.6) M/mm3 Hgb (12.5-18.0) gm/dl Hct (42-50) % MCV (78-100) fl MCH (26-32) pg MCHC (32-36) g/dl RDW (11.5-14.0) % Plt Count (150-450) K/mm3 MPV (6-9.5) fl Gran % (36.0-66.0) % Eos # (Auto) (0-0.5) Absolute Lymphs (auto) (1.0-4.6) Absolute Monos (auto) (0.0-1.3) Lymphocytes % (24.0-44.0) % Monocytes % (0.0-12.0) % Eosinophils % (0.00-5.0) % Basophils % (0.0-0.4) % Absolute Granulocytes (1.4-6.9) Basophils # (0-0.4) D-Dimer (215-500) ng/mL Puncture Site pCO2 (35-45) mmHg pO2 (75-100) mmHg Base Excess (-2.0-2.0) O2 Saturation (94-100) g/dF ABG pH (7.35-7.45) ABG HCO3 (22-28) ABG O2 Sat (Measured) (95-100) % Andrea Test A-a Gradient a/A Ratio Hemoglobin Carboxyhemoglobin (0.0-6.9) % THgb Methemoglobin (1.4-1.5) % Temperature C POC O2 Flow Rate % Sodium 137 (137-145) mmol/L Potassium 4.5 (3.5-5.1) mmol/L Chloride 100 (98-107) mmol/L Carbon Dioxide 27 (22-30) mmol/L Anion Gap 15.6 H (5-15) MEQ/L BUN 11 (9-20) mg/dL Creatinine 1.00 (0.66-1.25) mg/dL Estimated GFR > 60.0 ML/MIN Glucose 451 H (74-106) mg/dL Calcium 8.8 (8.4-10.2) mg/dL Phosphorus 2.4 L (2.5-4.5) mg/dL Total Bilirubin (0.2-1.3) mg/dL AST (17-59) U/L ALT (0-50) U/L Alkaline Phosphatase (38-126) U/L Troponin I < 0.012 (0.000-0.034) ng/mL Serum Total Protein (6.3-8.2) g/dL Albumin (3.5-5.0) g/dL Urine Color (YELLOW) Urine Appearance (CLEAR) Urine pH (5-6) Ur Specific [place] (1.005-1.025) Urine Protein (Negative) Urine Ketones (NEGATIVE) Urine Blood (0-5) Edgar/ul Urine Nitrite (NEGATIVE) Urine Bilirubin (NEGATIVE) Urine Urobilinogen (0-1) mg/dL Ur Leukocyte Esterase (NEGATIVE) Urine WBC (Auto) (0-5) /HPF Urine RBC (Auto) (0-2) /HPF U Epithel Cells (Auto) (FEW) /HPF Urine Bacteria (Auto) (NEGATIVE) /HPF Urine Culture Reflexed (NO) Urine Glucose (NEGATIVE) mg/dL 09/24/18 09/24/18 09/24/18 Range/Units 19:33 19:13 18:36 WBC (4.0-10.5) K/mm3 RBC (4.1-5.6) M/mm3 Hgb (12.5-18.0) gm/dl Hct (42-50) % MCV (78-100) fl MCH (26-32) pg MCHC (32-36) g/dl RDW (11.5-14.0) % Plt Count (150-450) K/mm3 MPV (6-9.5) fl Gran % (36.0-66.0) % Eos # (Auto) (0-0.5) Absolute Lymphs (auto) (1.0-4.6) Absolute Monos (auto) (0.0-1.3) Lymphocytes % (24.0-44.0) % Monocytes % (0.0-12.0) % Eosinophils % (0.00-5.0) % Basophils % (0.0-0.4) % Absolute Granulocytes (1.4-6.9) Basophils # (0-0.4) D-Dimer (215-500) ng/mL Puncture Site LEFT RADIAL pCO2 36 (35-45) mmHg pO2 101 H (75-100) mmHg Base Excess -2.0 (-2.0-2.0) O2 Saturation 94.8 (94-100) g/dF ABG pH 7.40 (7.35-7.45) ABG HCO3 22.3 (22-28) ABG O2 Sat (Measured) 99.2 (95-100) % Andrea Test YES A-a Gradient 4 a/A Ratio 0.96 Hemoglobin 14.4 Carboxyhemoglobin 2.5 (0.0-6.9) % THgb Methemoglobin 2.0 H (1.4-1.5) % Temperature 37.0 C POC O2 Flow Rate 21 % Sodium (137-145) mmol/L Potassium 3.9 (3.5-5.1) mmol/L Chloride (98-107) mmol/L Carbon Dioxide (22-30) mmol/L Anion Gap (5-15) MEQ/L BUN (9-20) mg/dL Creatinine (0.66-1.25) mg/dL Estimated GFR ML/MIN Glucose (74-106) mg/dL Calcium (8.4-10.2) mg/dL Phosphorus (2.5-4.5) mg/dL Total Bilirubin (0.2-1.3) mg/dL AST (17-59) U/L ALT (0-50) U/L Alkaline Phosphatase (38-126) U/L Troponin I < 0.012 (0.000-0.034) ng/mL Serum Total Protein (6.3-8.2) g/dL Albumin (3.5-5.0) g/dL Urine Color STRAW (YELLOW) Urine Appearance CLEAR (CLEAR) Urine pH 6.0 (5-6) Ur Specific [place] 1.031 (1.005-1.025) Urine Protein NEGATIVE (Negative) Urine Ketones NEGATIVE (NEGATIVE) Urine Blood NEGATIVE (0-5) Edgar/ul Urine Nitrite NEGATIVE (NEGATIVE) Urine Bilirubin NEGATIVE (NEGATIVE) Urine Urobilinogen NEGATIVE (0-1) mg/dL Ur Leukocyte Esterase NEGATIVE (NEGATIVE) Urine WBC (Auto) NONE (0-5) /HPF Urine RBC (Auto) NONE (0-2) /HPF U Epithel Cells (Auto) NONE (FEW) /HPF Urine Bacteria (Auto) NONE (NEGATIVE) /HPF Urine Culture Reflexed NO (NO) Urine Glucose >=500 (NEGATIVE) mg/dL 09/24/18 09/24/18 09/24/18 Range/Units 18:36 18:36 18:36 WBC 8.1 (4.0-10.5) K/mm3 RBC 4.82 (4.1-5.6) M/mm3 Hgb 15.6 (12.5-18.0) gm/dl Hct 44.7 (42-50) % MCV 92.7 (78-100) fl MCH 32.4 H (26-32) pg MCHC 34.9 (32-36) g/dl RDW 13.0 (11.5-14.0) % Plt Count 293 (150-450) K/mm3 MPV 9.4 (6-9.5) fl Gran % 58.1 (36.0-66.0) % Eos # (Auto) 0.20 (0-0.5) Absolute Lymphs (auto) 2.39 (1.0-4.6) Absolute Monos (auto) 0.76 (0.0-1.3) Lymphocytes % 29.5 (24.0-44.0) % Monocytes % 9.4 (0.0-12.0) % Eosinophils % 2.5 (0.00-5.0) % Basophils % 0.5 (0.0-0.4) % Absolute Granulocytes 4.71 (1.4-6.9) Basophils # 0.04 (0-0.4) D-Dimer < 136 L (215-500) ng/mL Puncture Site pCO2 (35-45) mmHg pO2 (75-100) mmHg Base Excess (-2.0-2.0) O2 Saturation (94-100) g/dF ABG pH (7.35-7.45) ABG HCO3 (22-28) ABG O2 Sat (Measured) (95-100) % Andrea Test A-a Gradient a/A Ratio Hemoglobin Carboxyhemoglobin (0.0-6.9) % THgb Methemoglobin (1.4-1.5) % Temperature C POC O2 Flow Rate % Sodium 136 L (137-145) mmol/L Potassium 4.8 (3.5-5.1) mmol/L Chloride 93 L (98-107) mmol/L Carbon Dioxide 27 (22-30) mmol/L Anion Gap 21.2 H (5-15) MEQ/L BUN 13 (9-20) mg/dL Creatinine 1.18 (0.66-1.25) mg/dL Estimated GFR > 60.0 ML/MIN Glucose 690 H* (74-106) mg/dL Calcium 9.7 (8.4-10.2) mg/dL Phosphorus (2.5-4.5) mg/dL Total Bilirubin 0.50 (0.2-1.3) mg/dL AST 29 (17-59) U/L ALT 45 (0-50) U/L Alkaline Phosphatase 147 H (38-126) U/L Troponin I (0.000-0.034) ng/mL Serum Total Protein 8.2 (6.3-8.2) g/dL Albumin 4.4 (3.5-5.0) g/dL Urine Color (YELLOW) Urine Appearance (CLEAR) Urine pH (5-6) Ur Specific [place] (1.005-1.025) Urine Protein (Negative) Urine Ketones (NEGATIVE) Urine Blood (0-5) Edgar/ul Urine Nitrite (NEGATIVE) Urine Bilirubin (NEGATIVE) Urine Urobilinogen (0-1) mg/dL Ur Leukocyte Esterase (NEGATIVE) Urine WBC (Auto) (0-5) /HPF Urine RBC (Auto) (0-2) /HPF U Epithel Cells (Auto) (FEW) /HPF Urine Bacteria (Auto) (NEGATIVE) /HPF Urine Culture Reflexed (NO) Urine Glucose (NEGATIVE) mg/dL - Progress Progress Note: Pt presented to the ED with complains of high BG and chest pain. EKG was done, and troponins were ordered. CBC and CMP as well as UA were ordered. Pt was signed out to Dr Wolfe. 09/24/18 18:49 - Departure Clinical Impression: Hyperglycemic hyperosmolar nonketotic coma, ACUTE CHEST PAIN Condition: Stable Referrals: ARY JADE [Primary Care Provider] - <NOHEMY WOLFE - Last Filed: 09/24/18 23:35> - Progress Progress Note: ADMINISTERED 2ND LITER BOLUS NORMAL SALINE OVER 1 HOUR, GLUCOSE-690, LACTIC ACID -4.3, ARTERIAL BLOOD GAS IS NORMAL, GIVEN INSULIN 8 UINTS IV, FOLLOWED BY INSULIN INFUSION 8 UNITS/HR 09/24/18 20:10, INSULIN INFUSION DISCONTINUED AT 2200 SERUM GLUCOSE-451 AT 2158 AND ACCUCHECK 337 AT 2300 09/24/18 20:14 06/08/19 23:08 Discussed with : Dominique (DISCUSSED WITH DR LAWRENCE AT 2245 FOR OBSERVATION) - Departure Departure Disposition: Observation Critical Care Time: No
[2018-09-24 19:01] LABS: Glucose 690 mg/dL (74-106)
[2018-09-24] MEDS ORDERED: NovoLIN R IV ONE (19:14)
[2018-09-24] MEDS ORDERED: NOVOLIN R INSULIN (FOR DRIPS)** 100 UNITS in Sodium Chloride 0.9% 100 ML IVPB 100 ML IV SCH (19:15)
[2018-09-24] MEDS ORDERED: NovoLIN R ONE ×2 (19:17→19:51)
[2018-09-24 19:42] LABS: Appearance CLEAR (CLEAR); Bilirubin NEGATIVE (NEGATIVE); Blood NEGATIVE Ery/ul (0-5); Glucose >=500 mg/dL (NEGATIVE); Ketones NEGATIVE (NEGATIVE); Leukocyte Esterase NEGATIVE (NEGATIVE); Nitrite NEGATIVE (NEGATIVE); Protein,Urine Dip NEGATIVE (Negative); Specific Gravity 1.031 (1.005-1.025); Urobilinogen NEGATIVE mg/dL (0-1)
[2018-09-24 19:42] LABS: A-aADO2 4; ABG HEMOGLOBIN 14.4; ABG POTASSIUM 3.9 (3.5-5.1); ABG SITE LEFT RADIAL; ALLEN TEST OK? YES; ARTERIAL BLD GAS O2 SATURATION 99.2 % (95-100); ARTERIAL BLOOD GAS FIO2 21 %; ARTERIAL BLOOD GAS PCO2 36 mmHg (35-45); ARTERIAL BLOOD GAS PO2 101 mmHg (75-100); CARBOXYHEMOGLOBIN 2.5 % THgb (0.0-6.9); HCO3- 22.3 (22-28); HGB O2 SAT 94.8 g/dF (94-100); paO2 pAO1 0.96
[2018-09-24] MEDS ORDERED: Sodium Chloride 0.9% 100 ML IVPB 100 ML IV ONE (19:51)
[2018-09-24 22:03] LABS: ANION GAP 15.6 MEQ/L (5-15); BLOOD UREA NITROGEN 11 mg/dL (9-20); CHLORIDE 100 mmol/L (98-107); Calcium 8.8 mg/dL (8.4-10.2); Carbon Dioxide 27 mmol/L (22-30); Glucose 451 mg/dL (74-106); Potassium 4.5 mmol/L (3.5-5.1); SODIUM 137 mmol/L (137-145)
--- NOTE | 2018-09-24 22:21 | XRAY ---
Indication: Chest pain. Comparison: March 03, 2018. PA/lateral chest again demonstrates a few bilateral calcified granulomas. Remaining heart, lungs, and bony thorax normal.
[2018-09-24] MEDS ORDERED: Zofran 4 MG/2 ML VIAL IV PRN (23:22)
[2018-09-24] MEDS ORDERED: TYLENOL 325 MG PO PRN (23:22)
[2018-09-25] MEDS: Sodium Chloride 0.9% 1000 ML 1,000 ML IV SCH ×2 (01:22→14:45)
[2018-09-25] MEDS ORDERED: Nitrostat 0.4 MG Tablet SL PRN (01:28)
[2018-09-25] MEDS ORDERED: Lantus Insulin SQ SCH (08:00)
[2018-09-25] MEDS: Glucophage 850 MG PO SCH ×2 (08:29→11:36)
[2018-09-25] MEDS: Catapres 0.1 MG PO SCH ×2 (08:29)
[2018-09-25] MEDS: Klonopin 0.5 MG PO SCH ×2 (08:29→14:47)
[2018-09-25] MEDS: NovoLIN R SQ PRN ×2 (08:30→11:37)
[2018-09-25] MEDS ORDERED: PRISTIQ ER PO SCH (10:00)
[2018-09-25] MEDS ORDERED: ECOTRIN 81 MG PO SCH (10:00)
[2018-09-25] MEDS ORDERED: COREG 12.5 MG PO SCH (10:00)
[2018-09-25 11:38] VITALS: BP 150/95; PULSE 81; O2SAT 97
--- NOTE | 2018-09-25 15:38 | PCM.SSS ---
History of Present Illness - Chief Complaint Chief Complaint: c/o high blood sugar, chest pain for 1 day History of Present Illness: is a 43 year old male that had a few days of high Blood Glucose in the 500s. He is using Tresiba and Humalog inj for his DM II and Metformin PO. Pt started having chest pain today, and his BG showed high. Pt developed diaphoresis, and nausea, and presented to the ED. Pt does have a h/o HTN, and he is taking Coreg for it. He did have a cardiac cath that was clean. - Review of Systems Constitutional: No Fever, No Chills Eyes: No Symptoms Ears, Nose, & Throat: No Symptoms Respiratory: No Cough, No Short Of Breath Cardiac: No Chest Pain, No Edema, No Syncope Abdominal/Gastrointestinal: No Abdominal Pain, No Nausea, No Vomiting, No Diarrhea Genitourinary Symptoms: No Dysuria Musculoskeletal: No Back Pain, No Neck Pain Skin: No Rash Neurological: No Dizziness, No Focal Weakness, No Sensory Changes Psychological: No Symptoms Endocrine: No Symptoms Hematologic/Lymphatic: No Symptoms Immunological/Allergic: No Symptoms Medications & Allergies Home Medications: Home Medication List Metformin HCl 850 mg [Glucophage 850 MG] 850 mg PO TID 03/21/14 [History Confirmed 09/25/18] Amitriptyline HCl 25 mg [Elavil 25 mg] 150 mg PO QHS 05/31/14 [History Confirmed 09/25/18] Insulin Degludec [Tresiba Flextouch U-100] 52 unit SQ BID 11/22/16 [History Confirmed 09/25/18] Aspirin 81 mg PO DAILY #1 tablet 04/27/17 [Rx Confirmed 09/25/18] Pravastatin Sodium 20 mg PO HS #30 tablet 04/27/17 [Rx Confirmed 09/25/18] Lurasidone HCl [Latuda] 160 mg PO HS 09/10/17 [History Confirmed 09/25/18] Clonidine HCl 0.1 mg [Catapres 0.1 MG] 0.1 mg PO BID tablet 09/11/17 [Rx Confirmed 09/25/18] Carvedilol 6.25 mg [Coreg 6.25 MG] 25 mg PO BID 11/13/17 [History Confirmed 09/25/18] Clonazepam 0.5 mg [Klonopin 0.5 MG] 1 mg PO BID 11/13/17 [History Confirmed 09/25/18] Insulin Aspart [NovoLOG Insulin] 15 units SQ BID PRN 11/13/17 [History Confirmed 09/25/18] Venlafaxine HCl ER 75 mg [Effexor XR 75 MG] 75 mg PO QHS 03/03/18 [ History Confirmed 09/25/18] Desvenlafaxine Succinate [Pristiq] 50 mg DAILY 09/24/18 [History Confirmed 09/25] Eslicarbazepine Acetate [Aptiom] 800 mg DAILY 09/24/18 [History Confirmed ] Allergies/Adverse Reactions: Allergies Allergy/AdvReac Type Severity Reaction Status Date / Time egg Allergy Verified 09/24/18 18:16 metoprolol AdvReac Intermediate blood Verified 09/24/18 18:16 pressure bottoms out to fast - Past Medical History Past Medical History: Yes Neurological History: Epilepsy, Peripheral Neuropathy, Stroke, Other ENT History: No Pertinent History Cardiac History: Hypertension Respiratory History: No Pertinent History Endocrine Medical History: Diabetes Type II Musculoskelatal History: Other GI Medical History: No Pertinent History History: No Pertinent History Pyscho-Social History: Anxiety, Depression Male Reproductive Disorders: Other Comment: 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, impotence, PINCHED NERVES IN BACK, 2014. DDD/back - Past Surgical History Past Surgical History: Yes Neuro Surgical History: No Pertinent History Cardiac History: Cardiac Catheterization Respiratory Surgery: No Pertinent History GI Surgical History: No Pertinent History Genitourinary Surgical Hx: No Pertinent History Musculskeletal Surgical Hx: No Pertinent History Male Surgical History: No Pertinent History Other Surgical History: heart cath - Social History Smoking Status: Never smoker Exposure to second hand smoke: No Alcohol: None Drug Use: none Significant Family History: diabetes, hypertension - Physical Exam Vital Signs: Vital Signs - 24 hr Temp Pulse Pulse Resp BP Pulse Ox 09/25/18 11:37 98.4 F 81 18 150/95 97 09/25/18 07:19 98.2 F 96 H 18 188/114 94 L 09/25/18 04:30 97.9 F 89 18 142/88 93 L 09/25/18 01:34 98.2 F 99 H 16 147/92 94 L 09/24/18 23:52 107 H 20 134/95 96 09/24/18 21:00 105 H 18 129/98 97 09/24/18 19:42 110 H 20 153/99 95 09/24/18 18:50 97 09/24/18 18:10 97 F 110 H 110 H 18 160/112 97 General Appearance: no apparent distress, alert Neurologic Exam: alert, oriented x 3, cooperative, normal mood/affect, nml cerebellar function, nml station & gait, sensation nml, No motor deficits Eye Exam: PERRL/EOMI, eyes nml inspection Ears, Nose, Throat Exam: normal ENT inspection, TMs normal, pharynx normal, moist mucous membranes Neck Exam: normal inspection, non-tender, supple, full range of motion Respiratory Exam: normal breath sounds, lungs clear, No respiratory distress Cardiovascular Exam: regular rate/rhythm, normal heart sounds, normal peripheral pulses Gastrointestinal/Abdomen Exam: soft, normal bowel sounds, No tenderness, No mass Back Exam: normal inspection, normal range of motion, No CVA tenderness, No vertebral tenderness Extremity Exam: normal inspection, normal range of motion, pelvis stable Skin Exam: normal color, warm, dry, No rash Lymphatic Exam: No adenopathy Results - Labs Lab/Micro Results: Accuchecks Date 09/25/18 Date 09/25/18 Time 11:30 Time 07:30 Accucheck Value: 323 Accucheck Value: 304 Accucheck Value: 337 Lab Results-Last 24 Hours 09/24/18 09/24/18 09/24/18 Range/Units 18:36 18:36 18:36 WBC 8.1 (4.0-10.5) K/mm3 RBC 4.82 (4.1-5.6) M/mm3 Hgb 15.6 (12.5-18.0) gm/dl Hct 44.7 (42-50) % MCV 92.7 (78-100) fl MCH 32.4 H (26-32) pg MCHC 34.9 (32-36) g/dl RDW 13.0 (11.5-14.0) % Plt Count 293 (150-450) K/mm3 MPV 9.4 (6-9.5) fl Gran % 58.1 (36.0-66.0) % Eos # (Auto) 0.20 (0-0.5) Absolute Lymphs (auto) 2.39 (1.0-4.6) Absolute Monos (auto) 0.76 (0.0-1.3) Lymphocytes % 29.5 (24.0-44.0) % Monocytes % 9.4 (0.0-12.0) % Eosinophils % 2.5 (0.00-5.0) % Basophils % 0.5 (0.0-0.4) % Absolute Granulocytes 4.71 (1.4-6.9) Basophils # 0.04 (0-0.4) D-Dimer < 136 L (215-500) ng/mL Puncture Site pCO2 (35-45) mmHg pO2 (75-100) mmHg Base Excess (-2.0-2.0) O2 Saturation (94-100) g/dF ABG pH (7.35-7.45) ABG HCO3 (22-28) ABG O2 Sat (Measured) (95-100) % Andrea Test A-a Gradient a/A Ratio Hemoglobin Carboxyhemoglobin (0.0-6.9) % THgb Methemoglobin (1.4-1.5) % Temperature C POC O2 Flow Rate % Sodium 136 L (137-145) mmol/L Potassium 4.8 (3.5-5.1) mmol/L Chloride 93 L (98-107) mmol/L Carbon Dioxide 27 (22-30) mmol/L Anion Gap 21.2 H (5-15) MEQ/L BUN 13 (9-20) mg/dL Creatinine 1.18 (0.66-1.25) mg/dL Estimated GFR > 60.0 ML/MIN Glucose 690 H* (74-106) mg/dL Hemoglobin A1c (4.5-6.0) % Calcium 9.7 (8.4-10.2) mg/dL Phosphorus (2.5-4.5) mg/dL Total Bilirubin 0.50 (0.2-1.3) mg/dL AST 29 (17-59) U/L ALT 45 (0-50) U/L Alkaline Phosphatase 147 H (38-126) U/L Troponin I (0.000-0.034) ng/mL Serum Total Protein 8.2 (6.3-8.2) g/dL Albumin 4.4 (3.5-5.0) g/dL Urine Color (YELLOW) Urine Appearance (CLEAR) Urine pH (5-6) Ur Specific [place] (1.005-1.025) Urine Protein (Negative) Urine Ketones (NEGATIVE) Urine Blood (0-5) Edgar/ul Urine Nitrite (NEGATIVE) Urine Bilirubin (NEGATIVE) Urine Urobilinogen (0-1) mg/dL Ur Leukocyte Esterase (NEGATIVE) Urine WBC (Auto) (0-5) /HPF Urine RBC (Auto) (0-2) /HPF U Epithel Cells (Auto) (FEW) /HPF Urine Bacteria (Auto) (NEGATIVE) /HPF Urine Culture Reflexed (NO) Urine Glucose (NEGATIVE) mg/dL 09/24/18 09/24/18 09/24/18 Range/Units 18:36 19:13 19:33 WBC (4.0-10.5) K/mm3 RBC (4.1-5.6) M/mm3 Hgb (12.5-18.0) gm/dl Hct (42-50) % MCV (78-100) fl MCH (26-32) pg MCHC (32-36) g/dl RDW (11.5-14.0) % Plt Count (150-450) K/mm3 MPV (6-9.5) fl Gran % (36.0-66.0) % Eos # (Auto) (0-0.5) Absolute Lymphs (auto) (1.0-4.6) Absolute Monos (auto) (0.0-1.3) Lymphocytes % (24.0-44.0) % Monocytes % (0.0-12.0) % Eosinophils % (0.00-5.0) % Basophils % (0.0-0.4) % Absolute Granulocytes (1.4-6.9) Basophils # (0-0.4) D-Dimer (215-500) ng/mL Puncture Site LEFT RADIAL pCO2 36 (35-45) mmHg pO2 101 H (75-100) mmHg Base Excess -2.0 (-2.0-2.0) O2 Saturation 94.8 (94-100) g/dF ABG pH 7.40 (7.35-7.45) ABG HCO3 22.3 (22-28) ABG O2 Sat (Measured) 99.2 (95-100) % Andrea Test YES A-a Gradient 4 a/A Ratio 0.96 Hemoglobin 14.4 Carboxyhemoglobin 2.5 (0.0-6.9) % THgb Methemoglobin 2.0 H (1.4-1.5) % Temperature 37.0 C POC O2 Flow Rate 21 % Sodium (137-145) mmol/L Potassium 3.9 (3.5-5.1) mmol/L Chloride (98-107) mmol/L Carbon Dioxide (22-30) mmol/L Anion Gap (5-15) MEQ/L BUN (9-20) mg/dL Creatinine (0.66-1.25) mg/dL Estimated GFR ML/MIN Glucose (74-106) mg/dL Hemoglobin A1c (4.5-6.0) % Calcium (8.4-10.2) mg/dL Phosphorus (2.5-4.5) mg/dL Total Bilirubin (0.2-1.3) mg/dL AST (17-59) U/L ALT (0-50) U/L Alkaline Phosphatase (38-126) U/L Troponin I < 0.012 (0.000-0.034) ng/mL Serum Total Protein (6.3-8.2) g/dL Albumin (3.5-5.0) g/dL Urine Color STRAW (YELLOW) Urine Appearance CLEAR (CLEAR) Urine pH 6.0 (5-6) Ur Specific [place] 1.031 (1.005-1.025) Urine Protein NEGATIVE (Negative) Urine Ketones NEGATIVE (NEGATIVE) Urine Blood NEGATIVE (0-5) Edgar/ul Urine Nitrite NEGATIVE (NEGATIVE) Urine Bilirubin NEGATIVE (NEGATIVE) Urine Urobilinogen NEGATIVE (0-1) mg/dL Ur Leukocyte Esterase NEGATIVE (NEGATIVE) Urine WBC (Auto) NONE (0-5) /HPF Urine RBC (Auto) NONE (0-2) /HPF U Epithel Cells (Auto) NONE (FEW) /HPF Urine Bacteria (Auto) NONE (NEGATIVE) /HPF Urine Culture Reflexed NO (NO) Urine Glucose >=500 (NEGATIVE) mg/dL 09/24/18 09/24/18 09/24/18 Range/Units 21:58 21:58 21:58 WBC (4.0-10.5) K/mm3 RBC (4.1-5.6) M/mm3 Hgb (12.5-18.0) gm/dl Hct (42-50) % MCV (78-100) fl MCH (26-32) pg MCHC (32-36) g/dl RDW (11.5-14.0) % Plt Count (150-450) K/mm3 MPV (6-9.5) fl Gran % (36.0-66.0) % Eos # (Auto) (0-0.5) Absolute Lymphs (auto) (1.0-4.6) Absolute Monos (auto) (0.0-1.3) Lymphocytes % (24.0-44.0) % Monocytes % (0.0-12.0) % Eosinophils % (0.00-5.0) % Basophils % (0.0-0.4) % Absolute Granulocytes (1.4-6.9) Basophils # (0-0.4) D-Dimer (215-500) ng/mL Puncture Site pCO2 (35-45) mmHg pO2 (75-100) mmHg Base Excess (-2.0-2.0) O2 Saturation (94-100) g/dF ABG pH (7.35-7.45) ABG HCO3 (22-28) ABG O2 Sat (Measured) (95-100) % Andrea Test A-a Gradient a/A Ratio Hemoglobin Carboxyhemoglobin (0.0-6.9) % THgb Methemoglobin (1.4-1.5) % Temperature C POC O2 Flow Rate % Sodium 137 (137-145) mmol/L Potassium 4.5 (3.5-5.1) mmol/L Chloride 100 (98-107) mmol/L Carbon Dioxide 27 (22-30) mmol/L Anion Gap 15.6 H (5-15) MEQ/L BUN 11 (9-20) mg/dL Creatinine 1.00 (0.66-1.25) mg/dL Estimated GFR > 60.0 ML/MIN Glucose 451 H (74-106) mg/dL Hemoglobin A1c (4.5-6.0) % Calcium 8.8 (8.4-10.2) mg/dL Phosphorus 2.4 L (2.5-4.5) mg/dL Total Bilirubin (0.2-1.3) mg/dL AST (17-59) U/L ALT (0-50) U/L Alkaline Phosphatase (38-126) U/L Troponin I < 0.012 (0.000-0.034) ng/mL Serum Total Protein (6.3-8.2) g/dL Albumin (3.5-5.0) g/dL Urine Color (YELLOW) Urine Appearance (CLEAR) Urine pH (5-6) Ur Specific [place] (1.005-1.025) Urine Protein (Negative) Urine Ketones (NEGATIVE) Urine Blood (0-5) Edgar/ul Urine Nitrite (NEGATIVE) Urine Bilirubin (NEGATIVE) Urine Urobilinogen (0-1) mg/dL Ur Leukocyte Esterase (NEGATIVE) Urine WBC (Auto) (0-5) /HPF Urine RBC (Auto) (0-2) /HPF U Epithel Cells (Auto) (FEW) /HPF Urine Bacteria (Auto) (NEGATIVE) /HPF Urine Culture Reflexed (NO) Urine Glucose (NEGATIVE) mg/dL 09/25/18 09/25/18 09/25/18 Range/Units 01:30 03:38 06:54 WBC (4.0-10.5) K/mm3 RBC (4.1-5.6) M/mm3 Hgb (12.5-18.0) gm/dl Hct (42-50) % MCV (78-100) fl MCH (26-32) pg MCHC (32-36) g/dl RDW (11.5-14.0) % Plt Count (150-450) K/mm3 MPV (6-9.5) fl Gran % (36.0-66.0) % Eos # (Auto) (0-0.5) Absolute Lymphs (auto) (1.0-4.6) Absolute Monos (auto) (0.0-1.3) Lymphocytes % (24.0-44.0) % Monocytes % (0.0-12.0) % Eosinophils % (0.00-5.0) % Basophils % (0.0-0.4) % Absolute Granulocytes (1.4-6.9) Basophils # (0-0.4) D-Dimer (215-500) ng/mL Puncture Site pCO2 (35-45) mmHg pO2 (75-100) mmHg Base Excess (-2.0-2.0) O2 Saturation (94-100) g/dF ABG pH (7.35-7.45) ABG HCO3 (22-28) ABG O2 Sat (Measured) (95-100) % Andrea Test A-a Gradient a/A Ratio Hemoglobin Carboxyhemoglobin (0.0-6.9) % THgb Methemoglobin (1.4-1.5) % Temperature C POC O2 Flow Rate % Sodium (137-145) mmol/L Potassium (3.5-5.1) mmol/L Chloride (98-107) mmol/L Carbon Dioxide (22-30) mmol/L Anion Gap (5-15) MEQ/L BUN (9-20) mg/dL Creatinine (0.66-1.25) mg/dL Estimated GFR ML/MIN Glucose (74-106) mg/dL Hemoglobin A1c (4.5-6.0) % Calcium (8.4-10.2) mg/dL Phosphorus (2.5-4.5) mg/dL Total Bilirubin (0.2-1.3) mg/dL AST (17-59) U/L ALT (0-50) U/L Alkaline Phosphatase (38-126) U/L Troponin I < 0.012 < 0.012 < 0.012 (0.000-0.034) ng/mL Serum Total Protein (6.3-8.2) g/dL Albumin (3.5-5.0) g/dL Urine Color (YELLOW) Urine Appearance (CLEAR) Urine pH (5-6) Ur Specific [place] (1.005-1.025) Urine Protein (Negative) Urine Ketones (NEGATIVE) Urine Blood (0-5) Edgar/ul Urine Nitrite (NEGATIVE) Urine Bilirubin (NEGATIVE) Urine Urobilinogen (0-1) mg/dL Ur Leukocyte Esterase (NEGATIVE) Urine WBC (Auto) (0-5) /HPF Urine RBC (Auto) (0-2) /HPF U Epithel Cells (Auto) (FEW) /HPF Urine Bacteria (Auto) (NEGATIVE) /HPF Urine Culture Reflexed (NO) Urine Glucose (NEGATIVE) mg/dL 09/25/18 Range/Units 06:54 WBC (4.0-10.5) K/mm3 RBC (4.1-5.6) M/mm3 Hgb (12.5-18.0) gm/dl Hct (42-50) % MCV (78-100) fl MCH (26-32) pg MCHC (32-36) g/dl RDW (11.5-14.0) % Plt Count (150-450) K/mm3 MPV (6-9.5) fl Gran % (36.0-66.0) % Eos # (Auto) (0-0.5) Absolute Lymphs (auto) (1.0-4.6) Absolute Monos (auto) (0.0-1.3) Lymphocytes % (24.0-44.0) % Monocytes % (0.0-12.0) % Eosinophils % (0.00-5.0) % Basophils % (0.0-0.4) % Absolute Granulocytes (1.4-6.9) Basophils # (0-0.4) D-Dimer (215-500) ng/mL Puncture Site pCO2 (35-45) mmHg pO2 (75-100) mmHg Base Excess (-2.0-2.0) O2 Saturation (94-100) g/dF ABG pH (7.35-7.45) ABG HCO3 (22-28) ABG O2 Sat (Measured) (95-100) % Andrea Test A-a Gradient a/A Ratio Hemoglobin Carboxyhemoglobin (0.0-6.9) % THgb Methemoglobin (1.4-1.5) % Temperature C POC O2 Flow Rate % Sodium (137-145) mmol/L Potassium (3.5-5.1) mmol/L Chloride (98-107) mmol/L Carbon Dioxide (22-30) mmol/L Anion Gap (5-15) MEQ/L BUN (9-20) mg/dL Creatinine (0.66-1.25) mg/dL Estimated GFR ML/MIN Glucose (74-106) mg/dL Hemoglobin A1c 8.44 H (4.5-6.0) % Calcium (8.4-10.2) mg/dL Phosphorus (2.5-4.5) mg/dL Total Bilirubin (0.2-1.3) mg/dL AST (17-59) U/L ALT (0-50) U/L Alkaline Phosphatase (38-126) U/L Troponin I (0.000-0.034) ng/mL Serum Total Protein (6.3-8.2) g/dL Albumin (3.5-5.0) g/dL Urine Color (YELLOW) Urine Appearance (CLEAR) Urine pH (5-6) Ur Specific [place] (1.005-1.025) Urine Protein (Negative) Urine Ketones (NEGATIVE) Urine Blood (0-5) Edagr/ul Urine Nitrite (NEGATIVE) Urine Bilirubin (NEGATIVE) Urine Urobilinogen (0-1) mg/dL Ur Leukocyte Esterase (NEGATIVE) Urine WBC (Auto) (0-5) /HPF Urine RBC (Auto) (0-2) /HPF U Epithel Cells (Auto) (FEW) /HPF Urine Bacteria (Auto) (NEGATIVE) /HPF Urine Culture Reflexed (NO) Urine Glucose (NEGATIVE) mg/dL Accuchecks Date 09/25/18 Date 09/25/18 Time 11:30 Time 07:30 Accucheck Value: 323 Accucheck Value: 304 Accucheck Value: 337 - Radiology Impressions Radiology Exams & Impressions: Radiology Procedures Category Date Time Status CHEST 2 VIEWS (PA AND LAT) Stat Exams 09/24/18 18:23 Completed - Other Procedures and Tests Respiratory Therapy 09/24/18 23:22 Oxygen Nasal Cannula 2 lpm Assessment/Plan (1) Hyperglycemic hyperosmolar nonketotic coma Current Visit: Yes Status: Resolved Assessment & Plan: Last Vital Signs Temp 98.4 F 09/25/18 11:37 Pulse 81 09/25/18 11:37 Resp 18 09/25/18 11:37 BP 150/95 09/25/18 11:37 Pulse Ox 97 09/25/18 11:37 Allergies egg Allergy (Verified 09/24/18 18:16) metoprolol Adverse Reaction (Intermediate, Verified 09/24/18 18:16) blood pressure bottoms out to fast Active Medications Acetaminophen (Tylenol 325 Mg) 650 mg PO Q4H PRN PRN PRN Reason: PAIN AND/OR FEVER Stop: 10/24/18 23:21 Amitriptyline HCl (Amitriptyline Hcl 50 Mg Tablet) 150 mg PO HS DASHAWN Stop: 10/25/18 21:59 Aspirin (Ecotrin 81 Mg) 81 mg PO DAILY DASHAWN Stop: 10/25/18 09:59 Last Admin: 09/25/18 08:28 Dose: 81 mg Carvedilol (Coreg 12.5 Mg) 25 mg PO BID [facility] Stop: 10/25/18 09:59 Last Admin: 09/25/18 08:29 Dose: 25 mg Clonazepam (Klonopin 0.5 Mg) 0.5 mg PO TID [facility] Stop: 10/25/18 09:59 Last Admin: 09/25/18 14:47 Dose: 0.5 mg Clonidine (Catapres 0.1 Mg) 0.1 mg PO BID [facility] Stop: 10/25/18 09:59 Last Admin: 09/25/18 08:29 Dose: 0.1 mg Desvenlafaxine Succinate (Pristiq Er) 25 mg PO DAILY [facility] Stop: 10/25/18 09:59 Last Admin: 09/25/18 08:28 Dose: 25 mg Sodium Chloride (Sodium Chloride 0.9% 1000 Ml) 1,000 mls @ 75 mls/hr IV .[id number] [facility] Stop: 10/24/18 23:29 Last Admin: 09/25/18 14:45 Dose: 75 mls/hr Insulin Glargine (Lantus Insulin) 52 unit SQ BID@0800,2200 [facility] Stop: 10/25/18 07:59 Last Admin: 09/25/18 08:29 Dose: 52 unit Insulin Human Regular (Novolin R) 0 unit SQ UD PRN PRN Reason: HYPERGLYCEMIA Stop: 10/24/18 23:21 Last Admin: 09/25/18 11:37 Dose: 9 unit Metformin HCl (Glucophage 850 Mg) 850 mg PO TIDWM [facility] Stop: 10/25/18 07:59 Last Admin: 09/25/18 11:36 Dose: 850 mg Nitroglycerin (Nitrostat 0.4 Mg Tablet) 0.4 mg SL Q5MIN PRN MR X 3 PRN PRN Reason: CHEST PAIN Stop: 10/25/18 01:27 Ondansetron HCl (Zofran 4 Mg/2 Ml Vial) 4 mg IV Q6H PRN PRN PRN Reason: NAUSEA/VOMITING Stop: 10/24/18 23:21 Intake & Output 09/25/18 09/26/18 11:59 11:59 Intake Total 570 Balance 570 Weight 99.8 kg Lab Tests 09/24/18 09/24/18 09/24/18 18:36 18:36 18:36 WBC 8.1 RBC 4.82 Hgb 15.6 Hct 44.7 MCV 92.7 MCH 32.4 H MCHC 34.9 RDW 13.0 Plt Count 293 MPV 9.4 Gran % 58.1 Eos # (Auto) 0.20 Absolute Lymphs (auto) 2.39 Absolute Monos (auto) 0.76 Lymphocytes % 29.5 Monocytes % 9.4 Eosinophils % 2.5 Basophils % 0.5 Absolute Granulocytes 4.71 Basophils # 0.04 D-Dimer < 136 L Puncture Site pCO2 pO2 Base Excess O2 Saturation ABG pH ABG HCO3 ABG O2 Sat (Measured) Andrea Test A-a Gradient a/A Ratio Hemoglobin Carboxyhemoglobin Methemoglobin Temperature POC O2 Flow Rate Sodium 136 L Potassium 4.8 Chloride 93 L Carbon Dioxide 27 Anion Gap 21.2 H BUN 13 Creatinine 1.18 Estimated GFR > 60.0 Glucose 690 H* Hemoglobin A1c Calcium 9.7 Phosphorus Total Bilirubin 0.50 AST 29 ALT 45 Alkaline Phosphatase 147 H Troponin I Serum Total Protein 8.2 Albumin 4.4 Urine Color Urine Appearance Urine pH Ur Specific [place] Urine Protein Urine Ketones Urine Blood Urine Nitrite Urine Bilirubin Urine Urobilinogen Ur Leukocyte Esterase Urine WBC (Auto) Urine RBC (Auto) U Epithel Cells (Auto) Urine Bacteria (Auto) Urine Culture Reflexed Urine Glucose 09/24/18 09/24/18 09/24/18 18:36 19:13 19:33 WBC RBC Hgb Hct MCV MCH MCHC RDW Plt Count MPV Gran % Eos # (Auto) Absolute Lymphs (auto) Absolute Monos (auto) Lymphocytes % Monocytes % Eosinophils % Basophils % Absolute Granulocytes Basophils # D-Dimer Puncture Site LEFT RADIAL pCO2 36 pO2 101 H Base Excess -2.0 O2 Saturation 94.8 ABG pH 7.40 ABG HCO3 22.3 ABG O2 Sat (Measured) 99.2 Andrea Test YES A-a Gradient 4 a/A Ratio 0.96 Hemoglobin 14.4 Carboxyhemoglobin 2.5 Methemoglobin 2.0 H Temperature 37.0 POC O2 Flow Rate 21 Sodium Potassium 3.9 Chloride Carbon Dioxide Anion Gap BUN Creatinine Estimated GFR Glucose Hemoglobin A1c Calcium Phosphorus Total Bilirubin AST ALT Alkaline Phosphatase Troponin I < 0.012 Serum Total Protein Albumin Urine Color STRAW Urine Appearance CLEAR Urine pH 6.0 Ur Specific [place] 1.031 Urine Protein NEGATIVE Urine Ketones NEGATIVE Urine Blood NEGATIVE Urine Nitrite NEGATIVE Urine Bilirubin NEGATIVE Urine Urobilinogen NEGATIVE Ur Leukocyte Esterase NEGATIVE Urine WBC (Auto) NONE Urine RBC (Auto) NONE U Epithel Cells (Auto) NONE Urine Bacteria (Auto) NONE Urine Culture Reflexed NO Urine Glucose >=500 09/24/18 09/24/18 09/24/18 21:58 21:58 21:58 WBC RBC Hgb Hct MCV MCH MCHC RDW Plt Count MPV Gran % Eos # (Auto) Absolute Lymphs (auto) Absolute Monos (auto) Lymphocytes % Monocytes % Eosinophils % Basophils % Absolute Granulocytes Basophils # D-Dimer Puncture Site pCO2 pO2 Base Excess O2 Saturation ABG pH ABG HCO3 ABG O2 Sat (Measured) Andrea Test A-a Gradient a/A Ratio Hemoglobin Carboxyhemoglobin Methemoglobin Temperature POC O2 Flow Rate Sodium 137 Potassium 4.5 Chloride 100 Carbon Dioxide 27 Anion Gap 15.6 H BUN 11 Creatinine 1.00 Estimated GFR > 60.0 Glucose 451 H Hemoglobin A1c Calcium 8.8 Phosphorus 2.4 L Total Bilirubin AST ALT Alkaline Phosphatase Troponin I < 0.012 Serum Total Protein Albumin Urine Color Urine Appearance Urine pH Ur Specific [place] Urine Protein Urine Ketones Urine Blood Urine Nitrite Urine Bilirubin Urine Urobilinogen Ur Leukocyte Esterase Urine WBC (Auto) Urine RBC (Auto) U Epithel Cells (Auto) Urine Bacteria (Auto) Urine Culture Reflexed Urine Glucose 09/25/18 09/25/18 09/25/18 01:30 03:38 06:54 WBC RBC Hgb Hct MCV MCH MCHC RDW Plt Count MPV Gran % Eos # (Auto) Absolute Lymphs (auto) Absolute Monos (auto) Lymphocytes % Monocytes % Eosinophils % Basophils % Absolute Granulocytes Basophils # D-Dimer Puncture Site pCO2 pO2 Base Excess O2 Saturation ABG pH ABG HCO3 ABG O2 Sat (Measured) Andrea Test A-a Gradient a/A Ratio Hemoglobin Carboxyhemoglobin Methemoglobin Temperature POC O2 Flow Rate Sodium Potassium Chloride Carbon Dioxide Anion Gap BUN Creatinine Estimated GFR Glucose Hemoglobin A1c Calcium Phosphorus Total Bilirubin AST ALT Alkaline Phosphatase Troponin I < 0.012 < 0.012 < 0.012 Serum Total Protein Albumin Urine Color Urine Appearance Urine pH Ur Specific [place] Urine Protein Urine Ketones Urine Blood Urine Nitrite Urine Bilirubin Urine Urobilinogen Ur Leukocyte Esterase Urine WBC (Auto) Urine RBC (Auto) U Epithel Cells (Auto) Urine Bacteria (Auto) Urine Culture Reflexed Urine Glucose 09/25/18 06:54 WBC RBC Hgb Hct MCV MCH MCHC RDW Plt Count MPV Gran % Eos # (Auto) Absolute Lymphs (auto) Absolute Monos (auto) Lymphocytes % Monocytes % Eosinophils % Basophils % Absolute Granulocytes Basophils # D-Dimer Puncture Site pCO2 pO2 Base Excess O2 Saturation ABG pH ABG HCO3 ABG O2 Sat (Measured) Andrea Test A-a Gradient a/A Ratio Hemoglobin Carboxyhemoglobin Methemoglobin Temperature POC O2 Flow Rate Sodium Potassium Chloride Carbon Dioxide Anion Gap BUN Creatinine Estimated GFR Glucose Hemoglobin A1c 8.44 H Calcium Phosphorus Total Bilirubin AST ALT Alkaline Phosphatase Troponin I Serum Total Protein Albumin Urine Color Urine Appearance Urine pH Ur Specific [place] Urine Protein Urine Ketones Urine Blood Urine Nitrite Urine Bilirubin Urine Urobilinogen Ur Leukocyte Esterase Urine WBC (Auto) Urine RBC (Auto) U Epithel Cells (Auto) Urine Bacteria (Auto) Urine Culture Reflexed Urine Glucose Code(s): E11.01 - TYPE 2 DIABETES MELLITUS WITH HYPEROSMOLARITY WITH COMA (2) Chest pain Current Visit: Yes Status: Resolved Qualifiers: Chest pain type: other chest pain Qualified Code(s): R07.89 - Other chest pain; R07.8 - Other chest pain Code(s): R07.9 - CHEST PAIN, UNSPECIFIED (3) Hyperglycemia due to type 2 diabetes mellitus Current Visit: No Status: Chronic Qualifiers: Diabetes mellitus long term care pharmacist insulin use: with long term care pharmacist use Qualified Code( s): E11.65 - Type 2 diabetes mellitus with hyperglycemia; Z79.4 - shelter ( current) use of insulin Code(s): E11.65 - TYPE 2 DIABETES MELLITUS WITH HYPERGLYCEMIA Hospital Summary - Hospital Course Hospital Course: Chief Complaint Diagnosis HYPERGLYCEMIA HYPEROSMOLAR NON-KETOTIC COMA, acute CP Allergies Allergy/AdvReac Type Severity Reaction Status Date / Time egg Allergy Verified 09/24/18 18:16 metoprolol AdvReac Intermediate blood Verified 09/24/18 18:16 pressure bottoms out to fast Vital Signs (Last 24 hours) Temp Pulse Pulse Resp BP Pulse Ox 09/25/18 11:37 98.4 F 81 18 150/95 97 09/25/18 07:19 98.2 F 96 H 18 188/114 94 L 09/25/18 04:30 97.9 F 89 18 142/88 93 L 09/25/18 01:34 98.2 F 99 H 16 147/92 94 L 09/24/18 23:52 107 H 20 134/95 96 09/24/18 21:00 105 H 18 129/98 97 09/24/18 19:42 110 H 20 153/99 95 09/24/18 18:50 97 09/24/18 18:10 97 F 110 H 110 H 18 160/112 97 Home Medications Medication Instructions Recorded Confirmed Last Taken Type Desvenlafaxine Succinate [Pristiq] 50 mg DAILY 09/24/18 09/25/18 Unknown History Eslicarbazepine Acetate [Aptiom] 800 mg DAILY 09/24/18 09/25/18 Unknown History Current Medications Generic Name Dose Route Start Last Admin Trade Name Freq PRN Reason Stop Dose Admin Acetaminophen 650 mg 09/24/18 23:22 Tylenol 325 Mg PO 10/24/18 23:21 Q4H PRN PRN PAIN AND/OR FEVER Amitriptyline HCl 150 mg 09/25/18 22:00 Amitriptyline Hcl 50 Mg Tablet PO 10/25/18 21:59 HS DASHAWN Aspirin 81 mg 09/25/18 10:00 09/25/18 08:28 Ecotrin 81 Mg PO 10/25/18 09:59 81 mg DAILY DASHAWN Administration Carvedilol 25 mg 09/25/18 10:00 09/25/18 08:29 Coreg 12.5 Mg PO 10/25/18 09:59 25 mg BID DASHAWN Administration Clonazepam 0.5 mg 09/25/18 10:00 09/25/18 14:47 Klonopin 0.5 Mg PO 10/25/18 09:59 0.5 mg TID DASHAWN Administration Clonidine 0.1 mg 09/25/18 10:00 09/25/18 08:29 Catapres 0.1 Mg PO 10/25/18 09:59 0.1 mg BID DASHAWN Administration Desvenlafaxine Succinate 25 mg 09/25/18 10:00 09/25/18 08:28 Pristiq Er PO 10/25/18 09:59 25 mg DAILY DASHAWN Administration Sodium Chloride 1,000 mls @ 75 mls/hr 09/24/18 23:30 09/25/18 14:45 Sodium Chloride 0.9% 1000 Ml IV 10/24/18 23:29 75 mls/hr .[id number] DASHAWN Administration Insulin Glargine 52 unit 09/25/18 08:00 09/25/18 08:29 Lantus Insulin SQ 10/25/18 07:59 52 unit BID@0800,2200 DASHAWN Administration Insulin Human Regular 0 unit 09/24/18 23:22 09/25/18 11:37 Novolin R SQ 10/24/18 23:21 9 unit UD PRN Administration HYPERGLYCEMIA Metformin HCl 850 mg 09/25/18 08:00 09/25/18 11:36 Glucophage 850 Mg PO 10/25/18 07:59 850 mg TIDWM DASHAWN Administration Nitroglycerin 0.4 mg 09/25/18 01:28 Nitrostat 0.4 Mg Tablet SL 10/25/18 01:27 Q5MIN PRN MR X 3 PRN CHEST PAIN Ondansetron HCl 4 mg 09/24/18 23:22 Zofran 4 Mg/2 Ml Vial IV 10/24/18 23:21 Q6H PRN PRN NAUSEA/VOMITING Discontinued Medications Generic Name Dose Route Start Last Admin Trade Name Freq PRN Reason Stop Dose Admin Sodium Chloride 1,000 mls @ 999 mls/hr 09/24/18 18:22 09/24/18 20:06 Sodium Chloride 0.9% 1000 Ml IV 09/24/18 19:22 Infused .Q1H1M STA Infusion Sodium Chloride Confirm 09/24/18 18:32 Sodium Chloride 0.9% 1000 Ml Administered 09/24/18 18:33 Dose 1,000 mls @ ud .ROUTE .STK-MED ONE Insulin Human Regular 100 101 mls @ 8.08 mls/hr 09/24/18 19:15 09/24/18 19:21 units/ Sodium Chloride IV 10/24/18 19:14 8 units/hr .[id number] DASHAWN 8.08 mls/hr Administration 8 UNITS/HR Sodium Chloride Confirm 09/24/18 19:58 Sodium Chloride 0.9% 1000 Ml Administered 09/24/18 19:59 Dose 1,000 mls @ ud .ROUTE .STK-MED ONE Sodium Chloride 1,000 mls @ 999 mls/hr 09/24/18 20:05 09/24/18 21:04 Sodium Chloride 0.9% 1000 Ml IV 09/24/18 21:05 Infused .Q1H1M STA Infusion Insulin Human Regular 8 unit 09/24/18 19:14 09/24/18 19:20 Novolin R IV 09/24/18 19:15 8 unit STAT ONE Administration Insulin Human Regular Confirm 09/24/18 19:17 Novolin R Administered 09/24/18 19:18 Dose 8 unit .ROUTE .STK-MED ONE Ondansetron HCl 4 mg 09/24/18 18:22 09/24/18 18:34 Zofran 4 Mg/2 Ml Vial IV 09/24/18 18:23 4 mg STAT ONE Administration Ondansetron HCl Confirm 09/24/18 18:32 Zofran 4 Mg/2 Ml Vial Administered 09/24/18 18:33 Dose 4 mg .ROUTE .STK-MED ONE Intake & Output (Last 24 hours) 09/23/18 09/24/18 09/25/18 09/26/18 11:59 11:59 11:59 11:59 Intake Total 570 Balance 570 Weight 99.8 kg Laboratory Results (Last 24 hours) 09/25/18 09/25/18 09/25/18 06:54 06:54 03:38 WBC RBC Hgb Hct MCV MCH MCHC RDW Plt Count MPV Gran % Eos # (Auto) Absolute Lymphs (auto) Absolute Monos (auto) Lymphocytes % Monocytes % Eosinophils % Basophils % Absolute Granulocytes Basophils # D-Dimer Puncture Site pCO2 pO2 Base Excess O2 Saturation ABG pH ABG HCO3 ABG O2 Sat (Measured) Andrea Test A-a Gradient a/A Ratio Hemoglobin Carboxyhemoglobin Methemoglobin Temperature POC O2 Flow Rate Sodium Potassium Chloride Carbon Dioxide Anion Gap BUN Creatinine Estimated GFR Glucose Hemoglobin A1c 8.44 H Calcium Phosphorus Total Bilirubin AST ALT Alkaline Phosphatase Troponin I < 0.012 < 0.012 Serum Total Protein Albumin Urine Color Urine Appearance Urine pH Ur Specific [place] Urine Protein Urine Ketones Urine Blood Urine Nitrite Urine Bilirubin Urine Urobilinogen Ur Leukocyte Esterase Urine WBC (Auto) Urine RBC (Auto) U Epithel Cells (Auto) Urine Bacteria (Auto) Urine Culture Reflexed Urine Glucose 09/25/18 09/24/18 09/24/18 01:30 21:58 21:58 WBC RBC Hgb Hct MCV MCH MCHC RDW Plt Count MPV Gran % Eos # (Auto) Absolute Lymphs (auto) Absolute Monos (auto) Lymphocytes % Monocytes % Eosinophils % Basophils % Absolute Granulocytes Basophils # D-Dimer Puncture Site pCO2 pO2 Base Excess O2 Saturation ABG pH ABG HCO3 ABG O2 Sat (Measured) Andrea Test A-a Gradient a/A Ratio Hemoglobin Carboxyhemoglobin Methemoglobin Temperature POC O2 Flow Rate Sodium 137 Potassium 4.5 Chloride 100 Carbon Dioxide 27 Anion Gap 15.6 H BUN 11 Creatinine 1.00 Estimated GFR > 60.0 Glucose 451 H Hemoglobin A1c Calcium 8.8 Phosphorus 2.4 L Total Bilirubin AST ALT Alkaline Phosphatase Troponin I < 0.012 Serum Total Protein Albumin Urine Color Urine Appearance Urine pH Ur Specific [place] Urine Protein Urine Ketones Urine Blood Urine Nitrite Urine Bilirubin Urine Urobilinogen Ur Leukocyte Esterase Urine WBC (Auto) Urine RBC (Auto) U Epithel Cells (Auto) Urine Bacteria (Auto) Urine Culture Reflexed Urine Glucose 09/24/18 09/24/18 09/24/18 21:58 19:33 19:13 WBC RBC Hgb Hct MCV MCH MCHC RDW Plt Count MPV Gran % Eos # (Auto) Absolute Lymphs (auto) Absolute Monos (auto) Lymphocytes % Monocytes % Eosinophils % Basophils % Absolute Granulocytes Basophils # D-Dimer Puncture Site LEFT RADIAL pCO2 36 pO2 101 H Base Excess -2.0 O2 Saturation 94.8 ABG pH 7.40 ABG HCO3 22.3 ABG O2 Sat (Measured) 99.2 Andrea Test YES A-a Gradient 4 a/A Ratio 0.96 Hemoglobin 14.4 Carboxyhemoglobin 2.5 Methemoglobin 2.0 H Temperature 37.0 POC O2 Flow Rate 21 Sodium Potassium 3.9 Chloride Carbon Dioxide Anion Gap BUN Creatinine Estimated GFR Glucose Hemoglobin A1c Calcium Phosphorus Total Bilirubin AST ALT Alkaline Phosphatase Troponin I < 0.012 Serum Total Protein Albumin Urine Color STRAW Urine Appearance CLEAR Urine pH 6.0 Ur Specific [place] 1.031 Urine Protein NEGATIVE Urine Ketones NEGATIVE Urine Blood NEGATIVE Urine Nitrite NEGATIVE Urine Bilirubin NEGATIVE Urine Urobilinogen NEGATIVE Ur Leukocyte Esterase NEGATIVE Urine WBC (Auto) NONE Urine RBC (Auto) NONE U Epithel Cells (Auto) NONE Urine Bacteria (Auto) NONE Urine Culture Reflexed NO Urine Glucose >=500 09/24/18 09/24/18 09/24/18 18:36 18:36 18:36 WBC RBC Hgb Hct MCV MCH MCHC RDW Plt Count MPV Gran % Eos # (Auto) Absolute Lymphs (auto) Absolute Monos (auto) Lymphocytes % Monocytes % Eosinophils % Basophils % Absolute Granulocytes Basophils # D-Dimer < 136 L Puncture Site pCO2 pO2 Base Excess O2 Saturation ABG pH ABG HCO3 ABG O2 Sat (Measured) Andrea Test A-a Gradient a/A Ratio Hemoglobin Carboxyhemoglobin Methemoglobin Temperature POC O2 Flow Rate Sodium 136 L Potassium 4.8 Chloride 93 L Carbon Dioxide 27 Anion Gap 21.2 H BUN 13 Creatinine 1.18 Estimated GFR > 60.0 Glucose 690 H* Hemoglobin A1c Calcium 9.7 Phosphorus Total Bilirubin 0.50 AST 29 ALT 45 Alkaline Phosphatase 147 H Troponin I < 0.012 Serum Total Protein 8.2 Albumin 4.4 Urine Color Urine Appearance Urine pH Ur Specific [place] Urine Protein Urine Ketones Urine Blood Urine Nitrite Urine Bilirubin Urine Urobilinogen Ur Leukocyte Esterase Urine WBC (Auto) Urine RBC (Auto) U Epithel Cells (Auto) Urine Bacteria (Auto) Urine Culture Reflexed Urine Glucose 09/24/18 18:36 WBC 8.1 RBC 4.82 Hgb 15.6 Hct 44.7 MCV 92.7 MCH 32.4 H MCHC 34.9 RDW 13.0 Plt Count 293 MPV 9.4 Gran % 58.1 Eos # (Auto) 0.20 Absolute Lymphs (auto) 2.39 Absolute Monos (auto) 0.76 Lymphocytes % 29.5 Monocytes % 9.4 Eosinophils % 2.5 Basophils % 0.5 Absolute Granulocytes 4.71 Basophils # 0.04 D-Dimer Puncture Site pCO2 pO2 Base Excess O2 Saturation ABG pH ABG HCO3 ABG O2 Sat (Measured) Andrea Test A-a Gradient a/A Ratio Hemoglobin Carboxyhemoglobin Methemoglobin Temperature POC O2 Flow Rate Sodium Potassium Chloride Carbon Dioxide Anion Gap BUN Creatinine Estimated GFR Glucose Hemoglobin A1c Calcium Phosphorus Total Bilirubin AST ALT Alkaline Phosphatase Troponin I Serum Total Protein Albumin Urine Color Urine Appearance Urine pH Ur Specific [place] Urine Protein Urine Ketones Urine Blood Urine Nitrite Urine Bilirubin Urine Urobilinogen Ur Leukocyte Esterase Urine WBC (Auto) Urine RBC (Auto) U Epithel Cells (Auto) Urine Bacteria (Auto) Urine Culture Reflexed Urine Glucose Orders (Last 24 hours) Category Date Time Status Up Ad Marybeth Q8H Activity 09/24/18 23:24 Active ACCUCHECK [Accucheck] STAT Care 09/24/18 22:49 Completed Accucheck ACHS Care 09/24/18 23:22 Active Code Status Order ROUTINE Care 09/24/18 23:23 Active IV Care Q6H Care 09/24/18 23:[address] in Observation ROUTINE Care 09/24/18 23:23 Active Telemetry q6h Care 09/25/18 01:31 Active Vital Signs Q4H Care 09/24/18 23:22 Completed Nutritional Admission Screen once Diet 09/25/18 08:00 Completed CHEST 2 VIEWS (PA AND LAT) Stat Exams 09/24/18 18:23 Completed ARTERIAL BLOOD GASES Stat Lab 09/24/18 19:33 Completed BMP Stat Lab 09/24/18 21:58 Completed CBC W DIFF Stat Lab 09/24/18 18:36 Completed CMP Stat Lab 09/24/18 18:36 Completed D-DIMER QUANTITATION Stat Lab 09/24/18 18:36 Completed HEMOGLOBIN A1C Routine Lab 09/25/18 06:54 Completed PHOSPHOROUS Stat Lab 09/24/18 21:58 Completed TROPONIN Q3H Lab 09/24/18 18:36 Completed TROPONIN Q3H Lab 09/24/18 21:58 Completed TROPONIN Q3H Lab 09/25/18 01:30 Completed TROPONIN Q3H Lab 09/25/18 03:38 Completed TROPONIN Q3H Lab 09/25/18 06:54 Completed UA W/RFX UR CULTURE Stat Lab 09/24/18 19:13 Completed AMITRIPTYLINE HCL 50 mg Tab [AMITRIPTYLINE HCL 50 mg Med 09/25/18 22:00 Active Tablet] 150 mg PO HS Acetaminophen 325 mg [Tylenol 325 mg] Med 09/24/18 23:22 Active 650 mg PO Q4H PRN PRN Aspirin EC 81 mg [Ecotrin 81 mg] Med 09/25/18 10:00 Active 81 mg PO DAILY Carvedilol 12.5 mg [Coreg 12.5 mg] Med 09/25/18 10:00 Active 25 mg PO BID Clonazepam 0.5 mg [Klonopin 0.5 MG] Med 09/25/18 10:00 Active 0.5 mg PO TID Clonidine HCl 0.1 mg [Catapres 0.1 MG] Med 09/25/18 10:00 Active 0.1 mg PO BID Desvenlafaxine Succinate [Pristiq ER] Med 09/25/18 10:00 Active 25 mg PO DAILY Insulin Glargine [Lantus Insulin] Med 09/25/18 08:00 Active 52 unit SQ BID@0800,2200 Insulin Regular, Human [NovoLIN R] Med 09/24/18 19:17 Discontinued 8 unit .ROUTE .STK-MED ONE Insulin Regular, Human [NovoLIN R] Med 09/24/18 19:14 Discontinued 8 unit IV STAT ONE Insulin Regular, Human [NovoLIN R] Med 09/24/18 23:22 Active See Dose Instructions SQ UD PRN Metformin HCl 850 mg [Glucophage 850 MG] Med 09/25/18 08:00 Active 850 mg PO TIDWM NaCl 0.9% 1000 ml [Sodium Chloride 0.9% 1000 ML] 1,000 Med 09/24/18 18:32 Discontinued ml .ROUTE UD NaCl 0.9% 1000 ml [Sodium Chloride 0.9% 1000 ML] 1,000 Med 09/24/18 19:58 Discontinued ml .ROUTE UD NaCl 0.9% 1000 ml [Sodium Chloride 0.9% 1000 ML] 1,000 Med 09/24/18 23:30 Active ml IV 75 mls/hr NaCl 0.9% 1000 ml [Sodium Chloride 0.9% 1000 ML] 1,000 Med 09/24/18 18:22 Discontinued ml IV 999 mls/hr NaCl 0.9% 1000 ml [Sodium Chloride 0.9% 1000 ML] 1,000 Med 09/24/18 20:05 Discontinued ml IV 999 mls/hr NaCl 0.9% 100Ml [Sodium Chloride 0.9% 100 ML IVPB] 100 Med 09/24/18 19:15 Discontinued ml Insulin Reg Human Rec [Novolin R Insulin (For Drips)* *] 100 units IV 8 units/hr Nitroglycerin 0.4 mg Tablet [Nitrostat 0.4 MG Tablet Med 09/25/18 01:28 Active ] 0.4 mg SL Q5MIN PRN MR X 3 PRN Ondansetron HCl 4 mg/2 ml [Zofran 4 MG/2 ML VIAL] Med 09/24/18 18:32 Discontinued 4 mg .ROUTE .STK-MED ONE Ondansetron HCl 4 mg/2 ml [Zofran 4 MG/2 ML VIAL] Med 09/24/18 23:22 Active 4 mg IV Q6H PRN PRN Ondansetron HCl 4 mg/2 ml [Zofran 4 MG/2 ML VIAL] Med 09/24/18 18:22 Discontinued 4 mg IV STAT ONE EKG ASORD RT 09/25/18 07:30 Completed EKG ASORD RT 09/25/18 13:30 Completed Oxygen Nasal Cannula 2 lpm RT 09/24/18 23:22 Active - Vitals & Intake/Output Vital Signs: Vital Signs Temperature 98.4 F 09/25/18 11:37 Pulse Rate 81 09/25/18 11:37 Respiratory Rate 18 09/25/18 11:37 Blood Pressure 150/95 09/25/18 11:37 O2 Sat by Pulse Oximetry 97 09/25/18 11:37 Intake & Output: Intake & Output 09/23/18 09/24/18 09/25/18 09/26/18 11:59 11:59 11:59 11:59 Intake Total 570 Balance 570 Weight 99.8 kg - Lab Result Diagrams: 09/24/18 18:36 09/24/18 21:58 Lab Results-Last 24 Hrs: Accuchecks Date 09/25/18 Date 09/25/18 Time 11:30 Time 07:30 Accucheck Value: 323 Accucheck Value: 304 Accucheck Value: 337 Lab Results-Last 24 Hours 09/24/18 09/24/18 09/24/18 Range/Units 18:36 18:36 18:36 WBC 8.1 (4.0-10.5) K/mm3 RBC 4.82 (4.1-5.6) M/mm3 Hgb 15.6 (12.5-18.0) gm/dl Hct 44.7 (42-50) % MCV 92.7 (78-100) fl MCH 32.4 H (26-32) pg MCHC 34.9 (32-36) g/dl RDW 13.0 (11.5-14.0) % Plt Count 293 (150-450) K/mm3 MPV 9.4 (6-9.5) fl Gran % 58.1 (36.0-66.0) % Eos # (Auto) 0.20 (0-0.5) Absolute Lymphs (auto) 2.39 (1.0-4.6) Absolute Monos (auto) 0.76 (0.0-1.3) Lymphocytes % 29.5 (24.0-44.0) % Monocytes % 9.4 (0.0-12.0) % Eosinophils % 2.5 (0.00-5.0) % Basophils % 0.5 (0.0-0.4) % Absolute Granulocytes 4.71 (1.4-6.9) Basophils # 0.04 (0-0.4) D-Dimer < 136 L (215-500) ng/mL Puncture Site pCO2 (35-45) mmHg pO2 (75-100) mmHg Base Excess (-2.0-2.0) O2 Saturation (94-100) g/dF ABG pH (7.35-7.45) ABG HCO3 (22-28) ABG O2 Sat (Measured) (95-100) % Andrea Test A-a Gradient a/A Ratio Hemoglobin Carboxyhemoglobin (0.0-6.9) % THgb Methemoglobin (1.4-1.5) % Temperature C POC O2 Flow Rate % Sodium 136 L (137-145) mmol/L Potassium 4.8 (3.5-5.1) mmol/L Chloride 93 L (98-107) mmol/L Carbon Dioxide 27 (22-30) mmol/L Anion Gap 21.2 H (5-15) MEQ/L BUN 13 (9-20) mg/dL Creatinine 1.18 (0.66-1.25) mg/dL Estimated GFR > 60.0 ML/MIN Glucose 690 H* (74-106) mg/dL Hemoglobin A1c (4.5-6.0) % Calcium 9.7 (8.4-10.2) mg/dL Phosphorus (2.5-4.5) mg/dL Total Bilirubin 0.50 (0.2-1.3) mg/dL AST 29 (17-59) U/L ALT 45 (0-50) U/L Alkaline Phosphatase 147 H (38-126) U/L Troponin I (0.000-0.034) ng/mL Serum Total Protein 8.2 (6.3-8.2) g/dL Albumin 4.4 (3.5-5.0) g/dL Urine Color (YELLOW) Urine Appearance (CLEAR) Urine pH (5-6) Ur Specific [place] (1.005-1.025) Urine Protein (Negative) Urine Ketones (NEGATIVE) Urine Blood (0-5) Edgar/ul Urine Nitrite (NEGATIVE) Urine Bilirubin (NEGATIVE) Urine Urobilinogen (0-1) mg/dL Ur Leukocyte Esterase (NEGATIVE) Urine WBC (Auto) (0-5) /HPF Urine RBC (Auto) (0-2) /HPF U Epithel Cells (Auto) (FEW) /HPF Urine Bacteria (Auto) (NEGATIVE) /HPF Urine Culture Reflexed (NO) Urine Glucose (NEGATIVE) mg/dL 09/24/18 09/24/18 09/24/18 Range/Units 18:36 19:13 19:33 WBC (4.0-10.5) K/mm3 RBC (4.1-5.6) M/mm3 Hgb (12.5-18.0) gm/dl Hct (42-50) % MCV (78-100) fl MCH (26-32) pg MCHC (32-36) g/dl RDW (11.5-14.0) % Plt Count (150-450) K/mm3 MPV (6-9.5) fl Gran % (36.0-66.0) % Eos # (Auto) (0-0.5) Absolute Lymphs (auto) (1.0-4.6) Absolute Monos (auto) (0.0-1.3) Lymphocytes % (24.0-44.0) % Monocytes % (0.0-12.0) % Eosinophils % (0.00-5.0) % Basophils % (0.0-0.4) % Absolute Granulocytes (1.4-6.9) Basophils # (0-0.4) D-Dimer (215-500) ng/mL Puncture Site LEFT RADIAL pCO2 36 (35-45) mmHg pO2 101 H (75-100) mmHg Base Excess -2.0 (-2.0-2.0) O2 Saturation 94.8 (94-100) g/dF ABG pH 7.40 (7.35-7.45) ABG HCO3 22.3 (22-28) ABG O2 Sat (Measured) 99.2 (95-100) % Andrea Test YES A-a Gradient 4 a/A Ratio 0.96 Hemoglobin 14.4 Carboxyhemoglobin 2.5 (0.0-6.9) % THgb Methemoglobin 2.0 H (1.4-1.5) % Temperature 37.0 C POC O2 Flow Rate 21 % Sodium (137-145) mmol/L Potassium 3.9 (3.5-5.1) mmol/L Chloride (98-107) mmol/L Carbon Dioxide (22-30) mmol/L Anion Gap (5-15) MEQ/L BUN (9-20) mg/dL Creatinine (0.66-1.25) mg/dL Estimated GFR ML/MIN Glucose (74-106) mg/dL Hemoglobin A1c (4.5-6.0) % Calcium (8.4-10.2) mg/dL Phosphorus (2.5-4.5) mg/dL Total Bilirubin (0.2-1.3) mg/dL AST (17-59) U/L ALT (0-50) U/L Alkaline Phosphatase (38-126) U/L Troponin I < 0.012 (0.000-0.034) ng/mL Serum Total Protein (6.3-8.2) g/dL Albumin (3.5-5.0) g/dL Urine Color STRAW (YELLOW) Urine Appearance CLEAR (CLEAR) Urine pH 6.0 (5-6) Ur Specific [place] 1.031 (1.005-1.025) Urine Protein NEGATIVE (Negative) Urine Ketones NEGATIVE (NEGATIVE) Urine Blood NEGATIVE (0-5) Edgar/ul Urine Nitrite NEGATIVE (NEGATIVE) Urine Bilirubin NEGATIVE (NEGATIVE) Urine Urobilinogen NEGATIVE (0-1) mg/dL Ur Leukocyte Esterase NEGATIVE (NEGATIVE) Urine WBC (Auto) NONE (0-5) /HPF Urine RBC (Auto) NONE (0-2) /HPF U Epithel Cells (Auto) NONE (FEW) /HPF Urine Bacteria (Auto) NONE (NEGATIVE) /HPF Urine Culture Reflexed NO (NO) Urine Glucose >=500 (NEGATIVE) mg/dL 06/08/19 06/08/19 06/08/19 Range/Units 21:58 21:58 21:58 WBC (4.0-10.5) K/mm3 RBC (4.1-5.6) M/mm3 Hgb (12.5-18.0) gm/dl Hct (42-50) % MCV (78-100) fl MCH (26-32) pg MCHC (32-36) g/dl RDW (11.5-14.0) % Plt Count (150-450) K/mm3 MPV (6-9.5) fl Gran % (36.0-66.0) % Eos # (Auto) (0-0.5) Absolute Lymphs (auto) (1.0-4.6) Absolute Monos (auto) (0.0-1.3) Lymphocytes % (24.0-44.0) % Monocytes % (0.0-12.0) % Eosinophils % (0.00-5.0) % Basophils % (0.0-0.4) % Absolute Granulocytes (1.4-6.9) Basophils # (0-0.4) D-Dimer (215-500) ng/mL Puncture Site pCO2 (35-45) mmHg pO2 (75-100) mmHg Base Excess (-2.0-2.0) O2 Saturation (94-100) g/dF ABG pH (7.35-7.45) ABG HCO3 (22-28) ABG O2 Sat (Measured) (95-100) % Andrea Test A-a Gradient a/A Ratio Hemoglobin Carboxyhemoglobin (0.0-6.9) % THgb Methemoglobin (1.4-1.5) % Temperature C POC O2 Flow Rate % Sodium 137 (137-145) mmol/L Potassium 4.5 (3.5-5.1) mmol/L Chloride 100 (98-107) mmol/L Carbon Dioxide 27 (22-30) mmol/L Anion Gap 15.6 H (5-15) MEQ/L BUN 11 (9-20) mg/dL Creatinine 1.00 (0.66-1.25) mg/dL Estimated GFR > 60.0 ML/MIN Glucose 451 H (74-106) mg/dL Hemoglobin A1c (4.5-6.0) % Calcium 8.8 (8.4-10.2) mg/dL Phosphorus 2.4 L (2.5-4.5) mg/dL Total Bilirubin (0.2-1.3) mg/dL AST (17-59) U/L ALT (0-50) U/L Alkaline Phosphatase (38-126) U/L Troponin I < 0.012 (0.000-0.034) ng/mL Serum Total Protein (6.3-8.2) g/dL Albumin (3.5-5.0) g/dL Urine Color (YELLOW) Urine Appearance (CLEAR) Urine pH (5-6) Ur Specific [place] (1.005-1.025) Urine Protein (Negative) Urine Ketones (NEGATIVE) Urine Blood (0-5) Edgar/ul Urine Nitrite (NEGATIVE) Urine Bilirubin (NEGATIVE) Urine Urobilinogen (0-1) mg/dL Ur Leukocyte Esterase (NEGATIVE) Urine WBC (Auto) (0-5) /HPF Urine RBC (Auto) (0-2) /HPF U Epithel Cells (Auto) (FEW) /HPF Urine Bacteria (Auto) (NEGATIVE) /HPF Urine Culture Reflexed (NO) Urine Glucose (NEGATIVE) mg/dL 09/25/18 09/25/18 09/25/18 Range/Units 01:30 03:38 06:54 WBC (4.0-10.5) K/mm3 RBC (4.1-5.6) M/mm3 Hgb (12.5-18.0) gm/dl Hct (42-50) % MCV (78-100) fl MCH (26-32) pg MCHC (32-36) g/dl RDW (11.5-14.0) % Plt Count (150-450) K/mm3 MPV (6-9.5) fl Gran % (36.0-66.0) % Eos # (Auto) (0-0.5) Absolute Lymphs (auto) (1.0-4.6) Absolute Monos (auto) (0.0-1.3) Lymphocytes % (24.0-44.0) % Monocytes % (0.0-12.0) % Eosinophils % (0.00-5.0) % Basophils % (0.0-0.4) % Absolute Granulocytes (1.4-6.9) Basophils # (0-0.4) D-Dimer (215-500) ng/mL Puncture Site pCO2 (35-45) mmHg pO2 (75-100) mmHg Base Excess (-2.0-2.0) O2 Saturation (94-100) g/dF ABG pH (7.35-7.45) ABG HCO3 (22-28) ABG O2 Sat (Measured) (95-100) % Andrea Test A-a Gradient a/A Ratio Hemoglobin Carboxyhemoglobin (0.0-6.9) % THgb Methemoglobin (1.4-1.5) % Temperature C POC O2 Flow Rate % Sodium (137-145) mmol/L Potassium (3.5-5.1) mmol/L Chloride (98-107) mmol/L Carbon Dioxide (22-30) mmol/L Anion Gap (5-15) MEQ/L BUN (9-20) mg/dL Creatinine (0.66-1.25) mg/dL Estimated GFR ML/MIN Glucose (74-106) mg/dL Hemoglobin A1c (4.5-6.0) % Calcium (8.4-10.2) mg/dL Phosphorus (2.5-4.5) mg/dL Total Bilirubin (0.2-1.3) mg/dL AST (17-59) U/L ALT (0-50) U/L Alkaline Phosphatase (38-126) U/L Troponin I < 0.012 < 0.012 < 0.012 (0.000-0.034) ng/mL Serum Total Protein (6.3-8.2) g/dL Albumin (3.5-5.0) g/dL Urine Color (YELLOW) Urine Appearance (CLEAR) Urine pH (5-6) Ur Specific [place] (1.005-1.025) Urine Protein (Negative) Urine Ketones (NEGATIVE) Urine Blood (0-5) Edgar/ul Urine Nitrite (NEGATIVE) Urine Bilirubin (NEGATIVE) Urine Urobilinogen (0-1) mg/dL Ur Leukocyte Esterase (NEGATIVE) Urine WBC (Auto) (0-5) /HPF Urine RBC (Auto) (0-2) /HPF U Epithel Cells (Auto) (FEW) /HPF Urine Bacteria (Auto) (NEGATIVE) /HPF Urine Culture Reflexed (NO) Urine Glucose (NEGATIVE) mg/dL 09/25/18 Range/Units 06:54 WBC (4.0-10.5) K/mm3 RBC (4.1-5.6) M/mm3 Hgb (12.5-18.0) gm/dl Hct (42-50) % MCV (78-100) fl MCH (26-32) pg MCHC (32-36) g/dl RDW (11.5-14.0) % Plt Count (150-450) K/mm3 MPV (6-9.5) fl Gran % (36.0-66.0) % Eos # (Auto) (0-0.5) Absolute Lymphs (auto) (1.0-4.6) Absolute Monos (auto) (0.0-1.3) Lymphocytes % (24.0-44.0) % Monocytes % (0.0-12.0) % Eosinophils % (0.00-5.0) % Basophils % (0.0-0.4) % Absolute Granulocytes (1.4-6.9) Basophils # (0-0.4) D-Dimer (215-500) ng/mL Puncture Site pCO2 (35-45) mmHg pO2 (75-100) mmHg Base Excess (-2.0-2.0) O2 Saturation (94-100) g/dF ABG pH (7.35-7.45) ABG HCO3 (22-28) ABG O2 Sat (Measured) (95-100) % Andrea Test A-a Gradient a/A Ratio Hemoglobin Carboxyhemoglobin (0.0-6.9) % THgb Methemoglobin (1.4-1.5) % Temperature C POC O2 Flow Rate % Sodium (137-145) mmol/L Potassium (3.5-5.1) mmol/L Chloride (98-107) mmol/L Carbon Dioxide (22-30) mmol/L Anion Gap (5-15) MEQ/L BUN (9-20) mg/dL Creatinine (0.66-1.25) mg/dL Estimated GFR ML/MIN Glucose (74-106) mg/dL Hemoglobin A1c 8.44 H (4.5-6.0) % Calcium (8.4-10.2) mg/dL Phosphorus (2.5-4.5) mg/dL Total Bilirubin (0.2-1.3) mg/dL AST (17-59) U/L ALT (0-50) U/L Alkaline Phosphatase (38-126) U/L Troponin I (0.000-0.034) ng/mL Serum Total Protein (6.3-8.2) g/dL Albumin (3.5-5.0) g/dL Urine Color (YELLOW) Urine Appearance (CLEAR) Urine pH (5-6) Ur Specific [place] (1.005-1.025) Urine Protein (Negative) Urine Ketones (NEGATIVE) Urine Blood (0-5) Edgar/ul Urine Nitrite (NEGATIVE) Urine Bilirubin (NEGATIVE) Urine Urobilinogen (0-1) mg/dL Ur Leukocyte Esterase (NEGATIVE) Urine WBC (Auto) (0-5) /HPF Urine RBC (Auto) (0-2) /HPF U Epithel Cells (Auto) (FEW) /HPF Urine Bacteria (Auto) (NEGATIVE) /HPF Urine Culture Reflexed (NO) Urine Glucose (NEGATIVE) mg/dL Micro Results-Entire Visit: Accuchecks Date 09/25/18 Date 09/25/18 Time 11:30 Time 07:30 Accucheck Value: 323 Accucheck Value: 304 Accucheck Value: 337 - Radiology Exams Ordered Rad Exams-Entire Visit: Radiology Procedures Category Date Time Status CHEST 2 VIEWS (PA AND LAT) Stat Exams 09/24/18 18:23 Completed - Procedures and Test Procedures and Tests throughout Hospitalization: Therapy Orders & Screens 09/24/18 23:22 Oxygen Nasal Cannula 2 lpm Comment: 09/25/18 07:30 EKG ASORD Comment: Diagnosis: HYPERGLYCEMIA HYPEROSMOLAR NON-KETOTIC COMA 09/25/18 13:30 EKG ASORD Comment: Diagnosis: HYPERGLYCEMIA HYPEROSMOLAR NON-KETOTIC COMA - Discharge Discharge Date: 09/25/18 Disposition: Home, Self-Care Condition: Stable Prescriptions: Continue Metformin HCl 850 mg [Glucophage 850 MG] 850 mg PO TID Amitriptyline HCl 25 mg [Elavil 25 mg] 150 mg PO QHS Insulin Degludec [Tresiba Flextouch U-100] 52 unit SQ BID Aspirin 81 mg PO DAILY #1 tablet Pravastatin Sodium 20 mg PO HS #30 tablet Lurasidone HCl [Latuda] 160 mg PO HS Clonidine HCl 0.1 mg [Catapres 0.1 MG] 0.1 mg PO BID tablet Insulin Aspart [NovoLOG Insulin] 15 units SQ BID PRN PRN Reason: blood glucose Carvedilol 6.25 mg [Coreg 6.25 MG] 25 mg PO BID Clonazepam 0.5 mg [Klonopin 0.5 MG] 1 mg PO BID Venlafaxine HCl ER 75 mg [Effexor XR 75 MG] 75 mg PO QHS Eslicarbazepine Acetate [Aptiom] 800 mg DAILY Desvenlafaxine Succinate [Pristiq] 50 mg DAILY Follow up with: ARY JADE [Primary Care Provider] - 1 Week
[2018-09-25] MEDS ORDERED: NovoLOG Insulin SQ PRN (15:53)
[2018-09-25] MEDS ORDERED: MEDICATION INTERVENTION MC SCH ×2 (16:00→16:15)
[2018-09-25] MEDS ORDERED: NON-FORMULARY ITEM (Pravastatin Sodium [Pravastatin Sodium] 20 MG) PO SCH (22:00)
[2018-09-25] MEDS ORDERED: Effexor XR 75 MG PO SCH (22:00)
[2018-09-25] MEDS ORDERED: Klonopin 0.5 MG PO SCH (22:00)
[2018-09-25] MEDS ORDERED: LURASIDONE HCL PO SCH (22:00)
[2018-09-25] MEDS ORDERED: ZOCOR 20MG PO SCH (22:00)
[2018-09-26] MEDS ORDERED: ESLICARBAZEPINE ACETATE 800 MG PO SCH (10:00)
[2018-09-26] MEDS ORDERED: PRISTIQ ER PO SCH (10:00)
== END 2018-09-25 16:10 | disposition home or self-care (01) ==
LOC: ED 18:05 → MED SURG 09-25 01:07
PROVIDERS: ADMIT General Practice; ATTEND Family Medicine
DX: E11.01 Type 2 diabetes mellitus with hyperosmolarity with coma (principal); E11.65 Type 2 diabetes mellitus with hyperglycemia; R07.9 Chest pain, unspecified; I10 Essential (primary) hypertension; Z79.4 Long term (current) use of insulin; Z79.899 Other long term (current) drug therapy
CPT/HCPCS: 36415; 36600; 71046; 80048; 80053; 81001; 82375; 82803; 82962; 83036; 84100; 84484; 85025; 85379; 93005; 96374; 96375; 96376; 99285; G0378; J1815; J2405; A9270-GY

== ENCOUNTER 2019-04-28 05:45 | Day surgery (SDC) | payer BC ==
[2019-04-28] MEDS ORDERED: Lactated Ringers 1,000 ML IV SCH (06:30)
[2019-04-28] MEDS ORDERED: DIPRIVAN 200 MG/20 ML IV ONE ×2 (08:18→08:38)
[2019-04-28] MEDS ORDERED: Ketamine HCl 50 MG/ML ONE (08:19)
--- NOTE | 2019-04-28 09:50 | OP ---
SURGERY DATE/TIME: 04/28/2019 0825 PREOPERATIVE DIAGNOSIS: Chronic constipation. POSTOPERATIVE DIAGNOSIS: Normal colon. PROCEDURE: Colonoscopy. SURGEON: Dr. Sheriff. ANESTHESIA: MAC. Medications given by anesthesia department. HISTORY: The patient is a 44 year-old white male who presents now for colonoscopic evaluation. He reports he has had problems with chronic constipation. He currently takes Linzess and has problems with alternating constipation and diarrhea. He denies any blood or abdominal pain. The patient was felt the need to have endoscopic evaluation. He was apprised of the risks of the procedure including the risk of perforation, phlebitis, untoward reaction to medication, bleeding and missed lesions. The patient verbalized his understanding and desired to have the procedure performed. DESCRIPTION OF PROCEDURE: The patient was given the medications by the anesthesia department. He had continuous pulse oximetry, ECG monitoring, intermittent blood pressure monitoring and tidal CO2 monitoring during the examination. He was placed in the left lateral decubitus position. A digital rectal examination was performed and revealed normal anal sphincter tone, no masses and normal prostate. The flexible Olympus pediatric colonoscope was used to intubate the rectum. A view of the colon was developed sequentially to the cecum. Upon insertion and withdrawal, including a retroflex view in the rectum, no mucosal lesions were encountered. The scope was removed from the patient who tolerated the procedure well and was sent back to OP recovery in good condition. The prep was noted to be fair.
[2019-04-28 10:55] VITALS: O2SAT 97
[2019-04-28 11:08] VITALS: BP 142/88; PULSE 86
== END 2019-04-28 10:25 | disposition home or self-care (01) ==
LOC: SDC 05:45
PROVIDERS: ATTEND Family Medicine
DX: K59.09 Other constipation (principal); E11.9 Type 2 diabetes mellitus without complications; I10 Essential (primary) hypertension; Z79.899 Other long term (current) drug therapy
CPT/HCPCS: 82962; J2704